=== PATIENT | male | born 1980 | race Caucasian/White ===

== ENCOUNTER 2017-06-14 03:39 | Inpatient (IN) | payer OTHER ==
[~2017-06-14] VITALS: Ht 193 cm; Wt 64.6 kg
[~2017-06-14 03:39] MED LIST: CYCLOBENZAPRINE5 MG PO; HYDROCODON-ACE1 EAC9 BLADIN; LYRICA75 MG PO; PANTOPRAZOLE SO40 MG PO
[2017-06-14] MEDS ORDERED: MORPHINE SULFATE 2 MG/ML SYR IV STA (03:49)
[2017-06-14] MEDS ORDERED: ONDANSETRON HCL INJ 2 MG/ML VIAL IV STA (03:49)
[2017-06-14] MEDS ORDERED: SODIUM CHLORIDE 0.9% 1000ML 1,000 ML IV ONE (04:00)
[2017-06-14] MEDS ORDERED: DIATRIZOATE MEGL/DIATRIZOA SOD 30 ML BTL PO ONE (04:23)
[2017-06-14 04:43] LABS: BILIRUBIN,URINE NEGATIVE (NEGATIVE); COLOR,URINE YELLOW (YELLOW); KETONES,URINE NEGATIVE (NEGATIVE); LEUKOCYTE ESTERASE ,URINE NEGATIVE (NEGATIVE); NITRITE,URINE NEGATIVE (NEGATIVE); PROTEIN,URINE DIPSTICK NEGATIVE (NEGATIVE); URINE UROBILINOGEN 0.2 mg/dL (0.2 - 1)
[2017-06-14] MEDS ORDERED: PROMETHAZINE HCL (IM) 25 MG/ML VIAL IM ONE (04:45)
[2017-06-14 04:46] LABS: CLARITY,URINE SL CLOUDY (CLEAR)
[2017-06-14 04:47] LABS: BASOPHILS % 0.4 % (0.0-1.0); EOSINOPHILS # (AUTO) 0.1 (0.0-0.4); HEMOGLOBIN 15.3 g/dL (14.0-18.0); LYMPHOCYTES # (AUTO) 1.5 (1.0-3.2); LYMPHOCYTES % 15.1 % (18.0-39.1); MEAN CORPUSCULAR HEMOGLOBIN 31.7 pg (28-32); MEAN CORPUSCULAR VOLUME 93.2 fL (81-99); MONOCYTES # (AUTO) 0.5 (0.2-0.8); MONOCYTES % 4.9 % (4.4-11.3); NEUTROPHILS # (AUTO) 7.7 (2.1-6.9); NEUTROPHILS % 78.3 % (38.7-80.0); PLATELET COUNT 259 x10e3/uL (140-360); RED BLOOD COUNT 4.83 x10e6/uL (4.3-5.7); RED CELL DISTRIBUTION WIDTH 13.9 % (11.7-14.4)
[2017-06-14 04:57] LABS: ALANINE AMINOTRANSFERASE 13 IU/L (0-55); ALBUMIN 4.6 g/dL (3.5-5.0); ALBUMIN/GLOBULIN RATIO 1.2 (0.8-2.0); ALKALINE PHOSPHATASE 51 IU/L (40-150); AMYLASE 45 U/L (25-125); ANION GAP 12.6 mmol/L (8-16); BLOOD UREA NITROGEN 7 mg/dL (7-26); BUN/CREATININE RATIO 7 (6-25); CALCIUM 10.2 mg/dL (8.4-10.2); CARBON DIOXIDE 31 mmol/L (22-29); CHLORIDE 100 mmol/L (98-107); CREATININE, SERUM 0.98 mg/dL (0.72-1.25); EST GLOMERULAR FILTRATION RATE > 60 ML/MIN (60-); GLUCOSE 125 mg/dL (74-118); LIPASE 17 U/L (8-78); POTASSIUM 3.6 mmol/L (3.5-5.1); SODIUM 140 mmol/L (136-145)
[2017-06-14 05:01] LABS: BACTERIA,URINE MANY /HPF; EPITHELIAL CELLS,URINE RARE /LPF; RBC,URINE 0-5 /HPF (0-5); WBC,URINE (MAN) 0-5 /HPF (0-5)
[2017-06-14] MEDS ORDERED: SODIUM CHLORIDE 0.9% 50ML 50 ML ONE ×3 (05:46→18:09)
[2017-06-14] MEDS ORDERED: IOPAMIDOL 370 MG/ML 200 ML INFUS..BTL INJ ONE (05:46)
--- NOTE | 2017-06-14 06:30 | Diagnostic Imaging Report ---
EXAM: CT ABDOMEN AND PELVIS with IV CONTRAST DATE: 06/14/2017 3:49 AM Time stamp on Exam: 0552 hours INDICATION: Abdominal pain, vomiting COMPARISON: AP view of the chest April 22, 2017 TECHNIQUE: The abdomen and pelvis were scanned using a multidetector helical scanner. Coronal and sagittal reformations were obtained. Routine protocol performed. IV Contrast: 100 cc Isovue 370 Oral Contrast: Gastrografin CTDIvol has been reviewed. It is below the limits set by the Radiation Protocol Committee (RPC). FINDINGS: LOWER THORAX: No consolidations LIVER: No masses BILIARY: The gallbladder is unremarkable. No ductal dilation. SPLEEN: No masses PANCREAS: No masses ADRENALS: No nodules KIDNEYS: Symmetric perfusion. No enhancing masses. No hydronephrosis. GI TRACT: Severe distention of the stomach and proximal duodenum with the transition point at the level of the superior mesenteric artery. The remainder of the small and large bowel are unremarkable. VESSELS: The aorta mesenteric angle is 11 degrees and aorta mesenteric distance is 6 mm PERITONEUM/RETROPERITONEUM: No free air or fluid LYMPH NODES: No lymphadenopathy REPRODUCTIVE ORGANS: Unremarkable BLADDER: Unremarkable SOFT TISSUES: Unremarkable BONES: No suspicious bone lesions. IMPRESSION: Once again there is severe distention of the stomach with the transition point in the mid third portion of the duodenum. 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 Signed by: Dr. Charlene Mccauley M.D. on 06/14/2017 6:27 AM
[2017-06-14] MEDS ORDERED: BENZOCAINE/TETRACAINE/BUTAMBEN AERO SPRAY 56 GM CAN TOP ONE (06:45)
[2017-06-14] MEDS ORDERED: ONDANSETRON HCL INJ 2 MG/ML VIAL IV PRN (07:00)
[2017-06-14] MEDS: SODIUM CHLORIDE 0.9% 1000ML 1,000 ML IV SCH ×2 (09:00→18:10)
[2017-06-14] MEDS ORDERED: PANTOPRAZOLE 40 MG 10ML VIAL IV SCH (09:00)
--- NOTE | 2017-06-14 10:17 | Consultation ---
DATE OF CONSULTATION: June 14, 2017 REASON FOR CONSULTATION: Duodenal obstruction. The patient is a 37-year-old, pleasant male who is admitted from the emergency room complaining of vomiting for several days. The patient was admitted to the hospital with similar problem in March of last year. The patient states he has lost significant weight during the last several months due to inability to take proper oral intake. The patient is a known case of Sjogren syndrome. Physical examination reveals a 37-year-old male. He has a BMI of 21. He is afebrile with stable vital signs. He has an NG tube draining some nonbloody material. Abdomen is soft and nondistended. Admission CT scan reveals changes consistent with superior mesenteric artery syndrome. Electrolytes reveal mild metabolic alkalosis. ASSESSMENT 1. 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 2. Sjogren syndrome with weight loss. PLAN: The plan is to rehydrate the patient. Keep him on nasogastric tube suction. Will discuss the case and further action of care with the other attendings. IAN WEAVER MD Job#: [id number] ANA MENDOSA
[2017-06-14] MEDS: MORPHINE SULFATE 2 MG/ML SYR IV PRN ×2 (11:14→18:15)
[2017-06-14] MEDS: PROMETHAZINE HCL (IM) 25 MG/ML VIAL IV PRN ×2 (11:14→18:10)
--- NOTE | 2017-06-14 15:54 | Consultation ---
DATE OF CONSULTATION: June 14, 2017 GASTROENTEROLOGY CONSULTATION REFERRING PHYSICIAN: Dr. Nano Lerner. REASON FOR CONSULTATION: Gastric outlet obstruction. HISTORY OF PRESENT ILLNESS: Mr. Singh is a very pleasant 37-year-old man with history of Sjogren's. Due to Sjogren's, he has chronic dysphagia and has basically been on a liquid diet. He has lost weight. He reports bloating and satiety after eating anything. He had similar issues in March of last year where a CAT scan was concerning for some outlet obstruction starting around the second portion of the duodenum. Repeat CAT scan is concerning for superior mesenteric artery syndrome. At the time he had an endoscopy but does not appear to have had a deep enteroscopy. Otherwise he has not had any recent travel or ill contacts. He has had no bleeding. His last bowel movement was yesterday. PAST MEDICAL HISTORY: 1. Sjogren's. 2. Chronic dysphagia. MEDICATIONS/ALLERGIES: REVIEWED. PLEASE SEE MAR MEDICATION RECONCILIATION FORM. SOCIAL HISTORY: No alcohol, tobacco or illicit substances. FAMILY HISTORY: Reviewed, noncontributory. REVIEW OF SYSTEMS: Ten-system review is positive for that mentioned in history of present illness, otherwise unremarkable. PHYSICAL EXAMINATION: GENERAL: He is pleasant, alert, oriented, no acute distress. HEENT: Pupils equal, round, reactive to light. NECK: Supple. LUNGS: Clear. CARDIOVASCULAR: S1/S2. ABDOMEN: Soft. He is mildly tender in the epigastric. No rebound, guarding or mass. EXTREMITIES: No clubbing, cyanosis, edema. PSYCHIATRIC: Calm, cooperative. NEUROLOGIC: Nonfocal. HEME-ONC: No bruising or adenopathy. Electronic health records reviewed for laboratory and radiologic studies as well as history. ASSESSMENT: 1. Possible superior mesenteric artery syndrome. 2. Weight loss. 3. Sjogren's with difficulty tolerating anything but liquids. 4. Malnutrition. PLAN: At the current time, would do a deeper enteroscopy to make sure we have evaluated the entire duodenum and first part of jejunum. Given the workup that was done in March and his CAT scan, if there are not endoscopic findings, may just attribute this to SMA syndrome and work on his nutrition. I will consult nutrition services as we may need to consider outpatient TPN that assists him in gaining weight versus jejunostomy with tube feeds. Appreciate that Dr. Remy has already seen the patient and will follow with him. Thank you very much for asking me to see Mr. Singh. Any questions or concerns, please do not hesitate to contact me. I will follow with you. Job#: [id number] EV
--- NOTE | 2017-06-14 16:43 | History and Physical ---
CHIEF COMPLAINT 1. Abdominal pain. 2. Nausea. 3. Vomiting. HISTORY OF PRESENT ILLNESS: This is a 37-year-old male with a past medical history of chronic low back pain on opiate medicine, Sjogren's syndrome. He was having symptoms of abdominal pain, nausea and vomiting since 2 days. The patient came to the emergency room last night. He had mild hematemesis, no melena, no fever, no cough, no chest pain. He had some low back pain. No leg pain, no leg swelling. PAST MEDICAL HISTORY: 1. Lumbar spondylosis. 2. Chronic low back pain. 3. Sjogren's syndrome with dryness of mouth. PAST SURGICAL HISTORY: None. ALLERGIES: NO KNOWN DRUG ALLERGIES. HOME MEDICATIONS: Parlin, Flexeril and Lyrica. SOCIAL HISTORY: The patient is and lives in [place] with his . HABITS: Denies smoking, denies drinking alcohol, denies substance abuse. FAMILY HISTORY: Mother has lupus. Father is alive and healthy. REVIEW OF SYSTEMS GENERAL: Denies fatigue and weakness. HEENT: No diplopia. No blurring of vision. CARDIOPULMONARY: No chest pain. No shortness of breath or cough. ALIMENTARY SYSTEM: No nausea or vomiting. No abdominal pain. GENITOURINARY: No dysuria. No hematuria. MUSCULOSKELETAL: Low back pain and joint pain. CENTRAL NERVOUS SYSTEM: No focal weakness. PHYSICAL EXAMINATION GENERAL: This is a 37-year-old male who is alert and oriented times 3, in no apparent distress. VITAL SIGNS: Temperature 98.2, pulse, 80, respiratory rate 18, blood pressure 130/84. HEENT: Normocephalic, atraumatic. Pupils bilaterally equal to light. Extraocular movements intact. Nose has NG tube. NECK: Supple. No JVD. No carotid bruits. LUNGS: Clear to auscultation and percussion bilaterally. HEART: S1 and S2. Regular rate and rhythm. No S3, S4 or murmur. ABDOMEN: No guarding, has some tenderness, generalized distention. Bowel sounds hypoactive. No rigidity. EXTREMITIES: No edema. Peripheral pulses are +1 TOBACCO CUTTER: Grossly nonfocal. ASSESSMENT 1. Intestinal obstruction. 2. Sjogren's syndrome. 3. Chronic low back pain. 4. Chronic pain syndrome on opiates. PLAN: 1. N.p.o. 2. IV fluids, normal saline 150 mL per hour. 3. Protonix 40 mg IV daily. 4. Surgical consult with Dr. Remy. 5. Gastrointestinal consult with Dr. Connors. 6. Labs tomorrow morning. 7. Zofran 4 mg IV q.8 h. p.r.n. for nausea and vomiting. Job#: [id number] GH
[2017-06-15] MEDS ORDERED: SODIUM CHLORIDE 0.9% 50ML 50 ML ONE (02:40)
[2017-06-15] MEDS: PROMETHAZINE HCL (IM) 25 MG/ML VIAL IV PRN (02:40)
[2017-06-15] MEDS: SODIUM CHLORIDE 0.9% 1000ML 1,000 ML IV SCH ×2 (02:40→16:36)
[2017-06-15] MEDS: MORPHINE SULFATE 2 MG/ML SYR IV PRN (03:27)
[2017-06-15 05:16] LABS: BASOPHILS % 0.5 % (0.0-1.0); EOSINOPHILS # (AUTO) 0.2 (0.0-0.4); EOSINOPHILS % 1.9 % (0.0-6.0); HEMATOCRIT 36.8 % (38.2-49.6); HEMOGLOBIN 12.2 g/dL (14.0-18.0); LYMPHOCYTES # (AUTO) 1.4 (1.0-3.2); LYMPHOCYTES % 15.7 % (18.0-39.1); MEAN CORPUSCULAR HEMOGLOBIN 31.9 pg (28-32); MEAN CORPUSCULAR HGB CONC 33.2 g/dL (31-35); MEAN CORPUSCULAR VOLUME 96.3 fL (81-99); MONOCYTES # (AUTO) 0.6 (0.2-0.8); MONOCYTES % 6.2 % (4.4-11.3); NEUTROPHILS # (AUTO) 6.7 (2.1-6.9); NEUTROPHILS % 75.4 % (38.7-80.0); PLATELET COUNT 173 x10e3/uL (140-360); RED BLOOD COUNT 3.82 x10e6/uL (4.3-5.7); RED CELL DISTRIBUTION WIDTH 14.3 % (11.7-14.4)
[2017-06-15 05:39] LABS: ALANINE AMINOTRANSFERASE 10 IU/L (0-55); ALBUMIN 3.5 g/dL (3.5-5.0); ALBUMIN/GLOBULIN RATIO 1.3 (0.8-2.0); ALKALINE PHOSPHATASE 42 IU/L (40-150); AMYLASE 37 U/L (25-125); ANION GAP 9.8 mmol/L (8-16); BLOOD UREA NITROGEN 9 mg/dL (7-26); BUN/CREATININE RATIO 12 (6-25); CALCIUM 8.5 mg/dL (8.4-10.2); CARBON DIOXIDE 25 mmol/L (22-29); CHLORIDE 111 mmol/L (98-107); CREATININE, SERUM 0.78 mg/dL (0.72-1.25); EST GLOMERULAR FILTRATION RATE > 60 ML/MIN (60-); GLUCOSE 83 mg/dL (74-118); LIPASE 20 U/L (8-78); POTASSIUM 3.8 mmol/L (3.5-5.1); SODIUM 142 mmol/L (136-145)
[2017-06-15] MEDS ORDERED: ONDANSETRON HCL INJ 2 MG/ML VIAL ONE (12:26)
[2017-06-15] MEDS ORDERED: MORPHINE SULFATE 2 MG/ML SYR ONE (12:27)
[2017-06-15 13:57] VITALS: BP 113/72
[2017-06-15 15:56] VITALS: BP 113/66
[2017-06-15 16:00] VITALS: BP 113/66
[2017-06-15] MEDS ORDERED: PROPOFOL IV EMULSION 10 MG/ML 50 ML VIAL ONE (17:35)
[2017-06-15] MEDS ORDERED: HYDROMORPHONE 1MG/1ML INJ IV PRN (18:30)
[2017-06-15] MEDS: HYDROMORPHONE 2MG/ML INJ IV PRN (19:00)
[2017-06-15] MEDS ORDERED: MIDAZOLAM HCL 2 MG/2 ML VIAL ONE (19:35)
[2017-06-15 20:00] VITALS: BP 116/70
[2017-06-16] VITALS (7 sets, daily range): BP systolic 116–126; BP diastolic 67–81
[2017-06-16] MEDS: SODIUM CHLORIDE 0.9% 1000ML 1,000 ML IV SCH ×4 (03:11→17:51)
[2017-06-16 08:18] LABS: BASOPHILS % 0.5 % (0.0-1.0); EOSINOPHILS # (AUTO) 0.1 (0.0-0.4); EOSINOPHILS % 1.5 % (0.0-6.0); HEMATOCRIT 35.7 % (38.2-49.6); LYMPHOCYTES # (AUTO) 1.3 (1.0-3.2); LYMPHOCYTES % 16.2 % (18.0-39.1); MEAN CORPUSCULAR HEMOGLOBIN 31.8 pg (28-32); MEAN CORPUSCULAR HGB CONC 33.6 g/dL (31-35); MEAN CORPUSCULAR VOLUME 94.7 fL (81-99); MONOCYTES # (AUTO) 0.4 (0.2-0.8); MONOCYTES % 5.6 % (4.4-11.3); NEUTROPHILS % 75.8 % (38.7-80.0); PLATELET COUNT 159 x10e3/uL (140-360); RED BLOOD COUNT 3.77 x10e6/uL (4.3-5.7); RED CELL DISTRIBUTION WIDTH 13.4 % (11.7-14.4)
[2017-06-16 08:35] LABS: ANION GAP 13.8 mmol/L (8-16); BLOOD UREA NITROGEN 11 mg/dL (7-26); BUN/CREATININE RATIO 17 (6-25); CALCIUM 8.2 mg/dL (8.4-10.2); CARBON DIOXIDE 22 mmol/L (22-29); CHLORIDE 109 mmol/L (98-107); CREATININE, SERUM 0.66 mg/dL (0.72-1.25); EST GLOMERULAR FILTRATION RATE > 60 ML/MIN (60-); GLUCOSE 69 mg/dL (74-118); POTASSIUM 3.8 mmol/L (3.5-5.1); SODIUM 141 mmol/L (136-145)
[2017-06-16] MEDS: HYDROMORPHONE 2MG/ML INJ IV PRN ×3 (11:04→22:22)
[2017-06-17] VITALS (9 sets, daily range): BP systolic 112–124; BP diastolic 66–71
[2017-06-17] MEDS: SODIUM CHLORIDE 0.9% 1000ML 1,000 ML IV SCH ×3 (01:55→20:40)
[2017-06-17 07:40] LABS: ALANINE AMINOTRANSFERASE 8 IU/L (0-55); ALBUMIN 3.2 g/dL (3.5-5.0); ALBUMIN/GLOBULIN RATIO 1.1 (0.8-2.0); ALKALINE PHOSPHATASE 40 IU/L (40-150); ANION GAP 11.6 mmol/L (8-16); BLOOD UREA NITROGEN 7 mg/dL (7-26); BUN/CREATININE RATIO 10 (6-25); CALCIUM 8.4 mg/dL (8.4-10.2); CARBON DIOXIDE 24 mmol/L (22-29); CHLORIDE 111 mmol/L (98-107); CREATININE, SERUM 0.67 mg/dL (0.72-1.25); EST GLOMERULAR FILTRATION RATE > 60 ML/MIN (60-); GLUCOSE 82 mg/dL (74-118); POTASSIUM 3.6 mmol/L (3.5-5.1); SODIUM 143 mmol/L (136-145)
[2017-06-17] MEDS: PANTOPRAZOLE 40 MG 10ML VIAL IV SCH (09:00)
[2017-06-17] MEDS: HYDROMORPHONE 2MG/ML INJ IV PRN ×3 (11:58→22:15)
--- NOTE | 2017-06-17 14:20 | Diagnostic Imaging Report ---
PROCEDURE: A single AP view of the chest. COMPARISON: Patients [facility], , CHEST 2 VIEWS, 04/22/2017, 23:49. INDICATIONS: PICC LINE PLACEMENT FINDINGS: Lines/tubes: Left upper extremity PICC has been placed with the distal tip projected over the cavoatrial junction. Lungs: The lungs are well inflated and clear. There is no evidence of pneumonia or pulmonary edema. Pleura: Mild biapical pleural scarring. There is no pleural effusion or pneumothorax. Heart and mediastinum: The heart and the mediastinum are unremarkable. Bones: No acute bony abnormality. IMPRESSION: 1. Left upper extremity PICC has been placed with the distal tip projected over the cavoatrial junction. Matt Tracey M.D. Dictated by: Matt Tracey M.D. on 06/17/2017 at 14:28 Electronically approved by: Matt Tracey M.D. on 06/17/2017 at 14:28
[2017-06-17] MEDS ORDERED: CENTRAL TPN FORMULA 1 BAG IV SCH (20:00)
[2017-06-18] VITALS (7 sets, daily range): BP systolic 106–137; BP diastolic 58–96
[2017-06-18 05:34] LABS: BASOPHILS % 0.5 % (0.0-1.0); EOSINOPHILS # (AUTO) 0.1 (0.0-0.4); EOSINOPHILS % 3.2 % (0.0-6.0); HEMATOCRIT 33.3 % (38.2-49.6); HEMOGLOBIN 11.4 g/dL (14.0-18.0); LYMPHOCYTES # (AUTO) 1.5 (1.0-3.2); LYMPHOCYTES % 34.5 % (18.0-39.1); MEAN CORPUSCULAR HEMOGLOBIN 32.3 pg (28-32); MEAN CORPUSCULAR HGB CONC 34.2 g/dL (31-35); MEAN CORPUSCULAR VOLUME 94.3 fL (81-99); MONOCYTES # (AUTO) 0.4 (0.2-0.8); MONOCYTES % 9.2 % (4.4-11.3); NEUTROPHILS # (AUTO) 2.3 (2.1-6.9); NEUTROPHILS % 52.6 % (38.7-80.0); PLATELET COUNT 148 x10e3/uL (140-360); RED BLOOD COUNT 3.53 x10e6/uL (4.3-5.7); RED CELL DISTRIBUTION WIDTH 13.2 % (11.7-14.4)
[2017-06-18 05:52] LABS: ANION GAP 10.5 mmol/L (8-16); BLOOD UREA NITROGEN 8 mg/dL (7-26); BUN/CREATININE RATIO 12 (6-25); CALCIUM 8.2 mg/dL (8.4-10.2); CARBON DIOXIDE 26 mmol/L (22-29); CHLORIDE 111 mmol/L (98-107); CREATININE, SERUM 0.67 mg/dL (0.72-1.25); EST GLOMERULAR FILTRATION RATE > 60 ML/MIN (60-); GLUCOSE 105 mg/dL (74-118); MAGNESIUM 1.5 MG/DL (1.3-2.1); POTASSIUM 3.5 mmol/L (3.5-5.1); SODIUM 144 mmol/L (136-145)
[2017-06-18] MEDS: SODIUM CHLORIDE 0.9% 1000ML 1,000 ML IV SCH ×2 (08:15→16:15)
[2017-06-18] MEDS: PANTOPRAZOLE 40 MG 10ML VIAL IV SCH (09:00)
[2017-06-18] MEDS: HYDROMORPHONE 2MG/ML INJ IV PRN ×4 (11:00→23:03)
[2017-06-18] MEDS ORDERED: CENTRAL TPN FORMULA 1 BAG IV SCH (20:00)
[2017-06-19] VITALS (7 sets, daily range): BP systolic 105–131; BP diastolic 6–79
[2017-06-19] MEDS: SODIUM CHLORIDE 0.9% 1000ML 1,000 ML IV SCH ×2 (03:16→21:07)
[2017-06-19] MEDS: HYDROMORPHONE 2MG/ML INJ IV PRN ×5 (03:45→23:30)
[2017-06-19 08:18] LABS: ALANINE AMINOTRANSFERASE 8 IU/L (0-55); ALBUMIN 3.5 g/dL (3.5-5.0); ALBUMIN/GLOBULIN RATIO 1.2 (0.8-2.0); ALKALINE PHOSPHATASE 38 IU/L (40-150); ANION GAP 9.5 mmol/L (8-16); BLOOD UREA NITROGEN 5 mg/dL (7-26); BUN/CREATININE RATIO 7 (6-25); CALCIUM 8.6 mg/dL (8.4-10.2); CARBON DIOXIDE 28 mmol/L (22-29); CHLORIDE 109 mmol/L (98-107); CREATININE, SERUM 0.67 mg/dL (0.72-1.25); EST GLOMERULAR FILTRATION RATE > 60 ML/MIN (60-); GLUCOSE 113 mg/dL (74-118); POTASSIUM 3.5 mmol/L (3.5-5.1); SODIUM 143 mmol/L (136-145)
[2017-06-19] MEDS: PANTOPRAZOLE 40 MG 10ML VIAL IV SCH (08:30)
[2017-06-19] MEDS ORDERED: CENTRAL TPN FORMULA 1 BAG IV SCH (20:00)
[2017-06-19] MEDS: DIPHENHYDRAMINE HCL INJ 50 MG/ML VIAL IV PRN (21:08)
[2017-06-20] VITALS (7 sets, daily range): BP systolic 110–139; BP diastolic 60–78
[2017-06-20] MEDS: HYDROMORPHONE 2MG/ML INJ IV PRN ×4 (03:33→22:00)
[2017-06-20 07:37] LABS: ALANINE AMINOTRANSFERASE 7 IU/L (0-55); ALBUMIN 3.3 g/dL (3.5-5.0); ALBUMIN/GLOBULIN RATIO 0.8 (0.8-2.0); ALKALINE PHOSPHATASE 32 IU/L (40-150); ANION GAP 11.3 mmol/L (8-16); BLOOD UREA NITROGEN 5 mg/dL (7-26); BUN/CREATININE RATIO 5 (6-25); CALCIUM 8.8 mg/dL (8.4-10.2); CARBON DIOXIDE 25 mmol/L (22-29); CHLORIDE 109 mmol/L (98-107); CREATININE, SERUM 0.93 mg/dL (0.72-1.25); EST GLOMERULAR FILTRATION RATE > 60 ML/MIN (60-); POTASSIUM 5.3 mmol/L (3.5-5.1); SODIUM 140 mmol/L (136-145)
[2017-06-20 07:39] LABS: GLUCOSE 706 mg/dL (74-118)
[2017-06-20] MEDS: PANTOPRAZOLE 40 MG 10ML VIAL IV SCH (09:11)
[2017-06-20 10:34] LABS: ALANINE AMINOTRANSFERASE 7 IU/L (0-55); ALBUMIN 3.5 g/dL (3.5-5.0); ALBUMIN/GLOBULIN RATIO 1.1 (0.8-2.0); ALKALINE PHOSPHATASE 41 IU/L (40-150); ANION GAP 9.4 mmol/L (8-16); BLOOD UREA NITROGEN 6 mg/dL (7-26); BUN/CREATININE RATIO 8 (6-25); CALCIUM 8.8 mg/dL (8.4-10.2); CARBON DIOXIDE 28 mmol/L (22-29); CHLORIDE 111 mmol/L (98-107); CREATININE, SERUM 0.71 mg/dL (0.72-1.25); EST GLOMERULAR FILTRATION RATE > 60 ML/MIN (60-); GLUCOSE 98 mg/dL (74-118); POTASSIUM 3.4 mmol/L (3.5-5.1); SODIUM 145 mmol/L (136-145)
[2017-06-20] MEDS: SODIUM CHLORIDE 0.9% 1000ML 1,000 ML IV SCH (19:16)
[2017-06-20] MEDS: CENTRAL TPN FORMULA 1 BAG IV SCH (20:10)
[2017-06-20] MEDS: DIPHENHYDRAMINE HCL INJ 50 MG/ML VIAL IV PRN (21:16)
[2017-06-21] VITALS (9 sets, daily range): BP systolic 114–141; BP diastolic 63–86
[2017-06-21] MEDS: HYDROMORPHONE 2MG/ML INJ IV PRN (09:20)
[2017-06-21] MEDS: PANTOPRAZOLE 40 MG 10ML VIAL IV SCH (09:28)
[2017-06-21 11:37] LABS: ANION GAP 11.7 mmol/L (8-16); BLOOD UREA NITROGEN 9 mg/dL (7-26); BUN/CREATININE RATIO 12 (6-25); CALCIUM 9.3 mg/dL (8.4-10.2); CARBON DIOXIDE 25 mmol/L (22-29); CHLORIDE 109 mmol/L (98-107); CREATININE, SERUM 0.74 mg/dL (0.72-1.25); EST GLOMERULAR FILTRATION RATE > 60 ML/MIN (60-); GLUCOSE 114 mg/dL (74-118); POTASSIUM 3.7 mmol/L (3.5-5.1); SODIUM 142 mmol/L (136-145)
[2017-06-21] MEDS: SODIUM CHLORIDE 0.9% 1000ML 1,000 ML IV SCH (15:00)
[2017-06-21] MEDS: CENTRAL TPN FORMULA 1 BAG IV SCH (20:52)
[2017-06-21] MEDS: DIPHENHYDRAMINE HCL INJ 50 MG/ML VIAL IV PRN (21:02)
[2017-06-22] VITALS (7 sets, daily range): BP systolic 113–154; BP diastolic 71–83
[2017-06-22 06:38] LABS: BASOPHILS % 0.6 % (0.0-1.0); EOSINOPHILS # (AUTO) 0.3 (0.0-0.4); HEMATOCRIT 36.9 % (38.2-49.6); HEMOGLOBIN 12.8 g/dL (14.0-18.0); LYMPHOCYTES # (AUTO) 1.2 (1.0-3.2); LYMPHOCYTES % 22.4 % (18.0-39.1); MEAN CORPUSCULAR HGB CONC 34.7 g/dL (31-35); MEAN CORPUSCULAR VOLUME 92.3 fL (81-99); MONOCYTES # (AUTO) 0.3 (0.2-0.8); MONOCYTES % 5.4 % (4.4-11.3); NEUTROPHILS # (AUTO) 3.4 (2.1-6.9); NEUTROPHILS % 66.4 % (38.7-80.0); PLATELET COUNT 187 x10e3/uL (140-360); RED CELL DISTRIBUTION WIDTH 13.2 % (11.7-14.4)
[2017-06-22 07:05] LABS: ALANINE AMINOTRANSFERASE 20 IU/L (0-55); ALBUMIN 3.4 g/dL (3.5-5.0); ALKALINE PHOSPHATASE 39 IU/L (40-150); BLOOD UREA NITROGEN 11 mg/dL (7-26); BUN/CREATININE RATIO 16 (6-25); CARBON DIOXIDE 23 mmol/L (22-29); CHLORIDE 111 mmol/L (98-107); EST GLOMERULAR FILTRATION RATE > 60 ML/MIN (60-); GLUCOSE 223 mg/dL (74-118); MAGNESIUM 2.4 MG/DL (1.3-2.1); SODIUM 142 mmol/L (136-145)
[2017-06-22] MEDS ORDERED: BUPIVACAINE LIPOSOME/PF 266 MG/20 ML IJ ONE (09:52)
[2017-06-22] MEDS ORDERED: BUPIVACAINE 0.25% 30ML SDV INJ ONE (09:52)
[2017-06-22] MEDS ORDERED: HYDROMORPHONE 1MG/1ML INJ IV PRN (10:30)
[2017-06-22] MEDS ORDERED: ACETAMINOPHEN 1000 MG/100 ML IV PRN (10:30)
[2017-06-22] MEDS: HYDROMORPHONE 2MG/ML INJ IV PRN ×2 (10:45→12:00)
[2017-06-22] MEDS: SODIUM CHLORIDE 0.9% 1000ML 1,000 ML IV SCH (11:16)
--- NOTE | 2017-06-22 11:16 | Operative Report ---
DATE OF PROCEDURE: June 22, 2017 PREOPERATIVE DIAGNOSIS: Duodenal obstruction. 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 OPERATION PERFORMED: Exploratory laparotomy, lysis of adhesions with release of duodenal obstruction, and appendectomy. PHARMACEUTICAL DEVELOPMENT TECHNICIAN: Dr. En Remy ANESTHESIA: General. COMPLICATIONS: None. ESTIMATED BLOOD LOSS: Minimal. DESCRIPTION OF PROCEDURE: With the patient lying in bed in the supine position under good general endotracheal anesthesia, the abdomen was prepped with Betadine solution and draped in the usual manner. A right subcostal incision was made. It was carried down through the subcutaneous tissue. Rectus fascia was opened. The rectus muscle was divided with cautery. The posterior rectus sheath was opened, and the abdomen was entered. Upon entering the abdominal cavity, exploration revealed the duodenum to be fairly well decompressed at this time. The colon was packed with hard, rock-like stool. The small bowel was then run from the terminal ileum all the way back to the ligament of Treitz. The small bowel itself appeared to be normal. However, at the level of the ligament of Treitz, there was an obvious kink of the junction of the 4th portion of the duodenum with the beginning of the jejunum. The bowel came out of the retroperitoneum at the 4th portion of the duodenum and went actually upwards underneath the transverse colon and was tightly adherent to the undersurface of the ligament of Treitz creating a kink in the bowel. We decided at this point to go ahead and free up the duodenum to be able to get a good look all the way around. The right colon was then mobilized medially, and a Napoleon maneuver was performed and the duodenum was mobilized medially all the way around, all the way down to the ligament of Treitz. The adhesions from the ligament of Treitz were then slowly and carefully taken down, and the ligament of Treitz was taken down. The duodenum was freed up in its 4th portion and 3rd portion. The proximal small bowel was all freed up. At this point, all the kinking of the bowel was undone. We were able to freely move the duodenum and visualize the entire length of the duodenum. There did not appear to be any other external compression. 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 This had all been freed up. The whole abdomen was then thoroughly irrigated. Perfect hemostasis was ascertained. We decided to go ahead and remove the appendix, which was in a retrocecal position. It had been totally mobilized as part of the dissection for the duodenum. The mesentery of the appendix was divided between 2-0 Vicryl ties. The base of the appendix was ligated with #0 Vicryl tie. The appendix was resected. The mucosa was cauterized, and the stump was inverted with a pursestring suture of 3-0 Vicryl. After this was done, again the bowel was run. There was no other point of obstruction present. The abdomen was then closed in layers. The peritoneum was closed with a running suture of #1 Vicryl. The anterior rectus sheath was closed with a running suture of #1 Vicryl. All layers were infiltrated on the way out with a solution of Exparel and 1/4 percent Marcaine. The skin was closed with clips. A dressing was applied. The sponge, lap and needle count was correct. Patient tolerated the procedure well and returned to the recovery room in stable condition. Job#: [id number]
[2017-06-22] MEDS ORDERED: CEFOXITIN 1GM/ DEXTROSE 50ML 50 ML IV SCH (12:00)
[2017-06-22] MEDS: PANTOPRAZOLE 40 MG 10ML VIAL IV SCH (12:00)
[2017-06-22] MEDS: CEFOXITIN SOD 1 GM VIAL IV SCH ×2 (13:41→20:20)
[2017-06-22] MEDS: SODIUM CHLORIDE 0.9% 250ML IRRIG IR SCH ×3 (13:41→22:42)
[2017-06-22] MEDS: ONDANSETRON HCL INJ 2 MG/ML VIAL IV PRN (13:48)
[2017-06-22] MEDS: DIPHENHYDRAMINE HCL INJ 50 MG/ML VIAL IV PRN (13:49)
[2017-06-22] MEDS: MORPHINE SULFATE 4 MG/ML SYR IV PRN ×3 (14:53→21:24)
[2017-06-22] MEDS ORDERED: MIDAZOLAM HCL 2 MG/2 ML VIAL ONE (18:19)
[2017-06-22] MEDS ORDERED: FENTANYL CITRATE/PF 100MCG/2 ML INJ ONE (18:19)
[2017-06-22] MEDS: PROMETHAZINE 12.5MG/ NACL 0.9% 12.5 MG/50 ML BAG IV PRN ×2 (19:10→22:42)
[2017-06-22] MEDS ORDERED: CEFOXITIN SOD 1 GM VIAL ONE (19:22)
[2017-06-22] MEDS ORDERED: NEOSTIGMINE 5 MG/5ML SYR ONE (19:22)
[2017-06-22] MEDS ORDERED: SEVOFLURANE INHAL SOLN 250 ML PEN BTL ONE (19:22)
[2017-06-22] MEDS ORDERED: PROPOFOL IV EMULSION 10 MG/ML 20 ML VIAL ONE (19:22)
[2017-06-22] MEDS ORDERED: EPHEDRINE SULFATE INJ 50 MG/10 ML SYR ONE (19:22)
[2017-06-22] MEDS ORDERED: ONDANSETRON HCL INJ 2 MG/ML VIAL ONE (19:22)
[2017-06-22] MEDS ORDERED: DEXAMETHASONE SOD PHOS INJ 4 MG/ML VIAL ONE (19:22)
[2017-06-22] MEDS ORDERED: ROCURONIUM BROMIDE 10 MG/ML 5ML VIAL ONE (19:22)
[2017-06-22] MEDS ORDERED: PHENYLEPHRINE HCL 1% 10 MG/ML VIAL ONE (19:22)
[2017-06-22] MEDS ORDERED: GLYCOPYRROLATE INJ 1MG/ 5 ML SYR ONE (19:22)
[2017-06-22] MEDS ORDERED: LIDOCAINE HCL 2% LOCAL INJ 5 ML SDV VIAL INJ ONE (19:22)
[2017-06-22] MEDS: CENTRAL TPN FORMULA 1 BAG IV SCH (20:20)
[2017-06-23] VITALS (7 sets, daily range): BP systolic 119–134; BP diastolic 65–77
[2017-06-23] MEDS: SODIUM CHLORIDE 0.9% 250ML IRRIG IR SCH ×6 (02:32→22:47)
[2017-06-23] MEDS: PROMETHAZINE 12.5MG/ NACL 0.9% 12.5 MG/50 ML BAG IV PRN ×6 (02:32→21:46)
[2017-06-23] MEDS: MORPHINE SULFATE 4 MG/ML SYR IV PRN ×6 (02:33→21:46)
[2017-06-23] MEDS: SODIUM CHLORIDE 0.9% 1000ML 1,000 ML IV SCH (06:13)
[2017-06-23 07:15] LABS: ALANINE AMINOTRANSFERASE 27 IU/L (0-55); ALBUMIN 3.2 g/dL (3.5-5.0); ALBUMIN/GLOBULIN RATIO 0.9 (0.8-2.0); ALKALINE PHOSPHATASE 47 IU/L (40-150); ANION GAP 10.7 mmol/L (8-16); BLOOD UREA NITROGEN 12 mg/dL (7-26); BUN/CREATININE RATIO 16 (6-25); CALCIUM 8.8 mg/dL (8.4-10.2); CARBON DIOXIDE 26 mmol/L (22-29); CHLORIDE 107 mmol/L (98-107); CREATININE, SERUM 0.74 mg/dL (0.72-1.25); EST GLOMERULAR FILTRATION RATE > 60 ML/MIN (60-); GLUCOSE 124 mg/dL (74-118); POTASSIUM 3.7 mmol/L (3.5-5.1); SODIUM 140 mmol/L (136-145)
[2017-06-23] MEDS: PANTOPRAZOLE 40 MG 10ML VIAL IV SCH (07:40)
[2017-06-23] MEDS ORDERED: CENTRAL TPN FORMULA 1 BAG IV SCH (20:00)
[2017-06-23] MEDS: DIPHENHYDRAMINE HCL INJ 50 MG/ML VIAL IV PRN (22:46)
[2017-06-24] VITALS (7 sets, daily range): BP systolic 113–120; BP diastolic 67–77
[2017-06-24] MEDS: MORPHINE SULFATE 4 MG/ML SYR IV PRN ×3 (00:55→08:32)
[2017-06-24] MEDS: PROMETHAZINE 12.5MG/ NACL 0.9% 12.5 MG/50 ML BAG IV PRN ×7 (00:55→21:22)
[2017-06-24] MEDS: SODIUM CHLORIDE 0.9% 250ML IRRIG IR SCH ×5 (01:52→18:22)
[2017-06-24] MEDS: SODIUM CHLORIDE 0.9% 1000ML 1,000 ML IV SCH (04:22)
[2017-06-24 07:03] LABS: BASOPHILS % 0.3 % (0.0-1.0); EOSINOPHILS # (AUTO) 0.3 (0.0-0.4); EOSINOPHILS % 2.3 % (0.0-6.0); HEMATOCRIT 39.1 % (38.2-49.6); HEMOGLOBIN 13.2 g/dL (14.0-18.0); MEAN CORPUSCULAR HEMOGLOBIN 31.7 pg (28-32); MEAN CORPUSCULAR HGB CONC 33.8 g/dL (31-35); MEAN CORPUSCULAR VOLUME 93.8 fL (81-99); MONOCYTES # (AUTO) 0.6 (0.2-0.8); MONOCYTES % 5.5 % (4.4-11.3); NEUTROPHILS # (AUTO) 9.6 (2.1-6.9); NEUTROPHILS % 82.6 % (38.7-80.0); PLATELET COUNT 199 x10e3/uL (140-360); RED BLOOD COUNT 4.17 x10e6/uL (4.3-5.7); RED CELL DISTRIBUTION WIDTH 13.7 % (11.7-14.4)
[2017-06-24 07:30] LABS: ALANINE AMINOTRANSFERASE 21 IU/L (0-55); ALBUMIN 2.9 g/dL (3.5-5.0); ALBUMIN/GLOBULIN RATIO 0.8 (0.8-2.0); ALKALINE PHOSPHATASE 49 IU/L (40-150); ANION GAP 10.7 mmol/L (8-16); BLOOD UREA NITROGEN 11 mg/dL (7-26); BUN/CREATININE RATIO 16 (6-25); CALCIUM 8.9 mg/dL (8.4-10.2); CARBON DIOXIDE 27 mmol/L (22-29); CHLORIDE 107 mmol/L (98-107); CREATININE, SERUM 0.68 mg/dL (0.72-1.25); EST GLOMERULAR FILTRATION RATE > 60 ML/MIN (60-); GLUCOSE 129 mg/dL (74-118); MAGNESIUM 1.9 MG/DL (1.3-2.1); POTASSIUM 3.7 mmol/L (3.5-5.1); SODIUM 141 mmol/L (136-145)
[2017-06-24] MEDS: PANTOPRAZOLE 40 MG 10ML VIAL IV SCH (08:40)
[2017-06-24] MEDS: MORPHINE SULFATE 5 MG/ML VIAL IV PRN ×4 (12:00→21:22)
[2017-06-24] MEDS ORDERED: CENTRAL TPN FORMULA 1 BAG IV SCH (13:23)
[2017-06-24] MEDS: CENTRAL TPN FORMULA 1 BAG IV SCH (20:37)
[2017-06-24] MEDS: DIPHENHYDRAMINE HCL INJ 50 MG/ML VIAL IV PRN (22:42)
[2017-06-25] VITALS: BP 107/65
[2017-06-25] MEDS: SODIUM CHLORIDE 0.9% 1000ML 1,000 ML IV SCH (00:21)
[2017-06-25] MEDS: METOCLOPRAMIDE HCL 10 MG/2ML VIAL IV SCH ×4 (00:21→17:24)
[2017-06-25] MEDS: PROMETHAZINE 12.5MG/ NACL 0.9% 12.5 MG/50 ML BAG IV PRN ×6 (01:05→21:10)
[2017-06-25] MEDS: MORPHINE SULFATE 4 MG/ML SYR IV PRN ×6 (01:05→21:11)
[2017-06-25 04:00] VITALS: BP 111/67
[2017-06-25 07:27] LABS: ALANINE AMINOTRANSFERASE 16 IU/L (0-55); ALBUMIN 2.7 g/dL (3.5-5.0); ALBUMIN/GLOBULIN RATIO 0.8 (0.8-2.0); ALKALINE PHOSPHATASE 48 IU/L (40-150); ANION GAP 11.4 mmol/L (8-16); BLOOD UREA NITROGEN 13 mg/dL (7-26); BUN/CREATININE RATIO 19 (6-25); CALCIUM 8.7 mg/dL (8.4-10.2); CARBON DIOXIDE 28 mmol/L (22-29); CHLORIDE 107 mmol/L (98-107); CREATININE, SERUM 0.69 mg/dL (0.72-1.25); EST GLOMERULAR FILTRATION RATE > 60 ML/MIN (60-); GLUCOSE 112 mg/dL (74-118); POTASSIUM 3.4 mmol/L (3.5-5.1); SODIUM 143 mmol/L (136-145)
[2017-06-25 08:10] VITALS: BP 116/65
[2017-06-25] MEDS: PANTOPRAZOLE 40 MG 10ML VIAL IV SCH (08:55)
[2017-06-25] MEDS: KCL 20MEQ/.9 SOD CHL 1,000 ML IV SCH (08:59)
[2017-06-25 11:34] VITALS: BP 108/65
[2017-06-25 16:38] VITALS: BP 113/65
[2017-06-25 20:00] VITALS: BP 108/64
[2017-06-25] MEDS: CENTRAL TPN FORMULA 1 BAG IV SCH (20:30)
[2017-06-25] MEDS: DIPHENHYDRAMINE HCL INJ 50 MG/ML VIAL IV PRN (21:41)
[2017-06-26] VITALS (9 sets, daily range): BP systolic 108–141; BP diastolic 59–86
[2017-06-26] MEDS: METOCLOPRAMIDE HCL 10 MG/2ML VIAL IV SCH ×4 (00:39→18:00)
[2017-06-26] MEDS: PROMETHAZINE 12.5MG/ NACL 0.9% 12.5 MG/50 ML BAG IV PRN ×4 (01:12→22:10)
[2017-06-26] MEDS: MORPHINE SULFATE 4 MG/ML SYR IV PRN ×2 (01:13→05:22)
[2017-06-26] MEDS: KCL 20MEQ/.9 SOD CHL 1,000 ML IV SCH (05:21)
[2017-06-26 05:47] LABS: BASOPHILS % 0.7 % (0.0-1.0); EOSINOPHILS # (AUTO) 0.6 (0.0-0.4); EOSINOPHILS % 10.4 % (0.0-6.0); HEMATOCRIT 33.3 % (38.2-49.6); HEMOGLOBIN 11.2 g/dL (14.0-18.0); LYMPHOCYTES # (AUTO) 1.1 (1.0-3.2); LYMPHOCYTES % 19.3 % (18.0-39.1); MEAN CORPUSCULAR HEMOGLOBIN 31.5 pg (28-32); MEAN CORPUSCULAR HGB CONC 33.6 g/dL (31-35); MEAN CORPUSCULAR VOLUME 93.5 fL (81-99); MONOCYTES # (AUTO) 0.5 (0.2-0.8); NEUTROPHILS # (AUTO) 3.6 (2.1-6.9); NEUTROPHILS % 61.4 % (38.7-80.0); PLATELET COUNT 199 x10e3/uL (140-360); RED BLOOD COUNT 3.56 x10e6/uL (4.3-5.7); RED CELL DISTRIBUTION WIDTH 13.2 % (11.7-14.4)
[2017-06-26 06:05] LABS: ANION GAP 10.5 mmol/L (8-16); BLOOD UREA NITROGEN 11 mg/dL (7-26); BUN/CREATININE RATIO 18 (6-25); CALCIUM 8.3 mg/dL (8.4-10.2); CARBON DIOXIDE 26 mmol/L (22-29); CHLORIDE 112 mmol/L (98-107); CREATININE, SERUM 0.62 mg/dL (0.72-1.25); EST GLOMERULAR FILTRATION RATE > 60 ML/MIN (60-); GLUCOSE 101 mg/dL (74-118); MAGNESIUM 1.7 MG/DL (1.3-2.1); POTASSIUM 3.5 mmol/L (3.5-5.1); SODIUM 145 mmol/L (136-145)
[2017-06-26] MEDS: PANTOPRAZOLE 40 MG 10ML VIAL IV SCH (08:17)
[2017-06-26] MEDS: MORPHINE SULFATE 5 MG/ML VIAL IV PRN ×4 (10:03→22:11)
[2017-06-26] MEDS ORDERED: CENTRAL TPN FORMULA 1 BAG IV SCH (20:00)
[2017-06-26] MEDS: DIPHENHYDRAMINE HCL INJ 50 MG/ML VIAL IV PRN (21:14)
[2017-06-27 00:09] VITALS: BP 111/61
[2017-06-27] MEDS: METOCLOPRAMIDE HCL 10 MG/2ML VIAL IV SCH ×4 (00:37→18:29)
[2017-06-27] MEDS: KCL 20MEQ/.9 SOD CHL 1,000 ML IV SCH ×2 (03:30→20:00)
[2017-06-27] MEDS: MORPHINE SULFATE 5 MG/ML VIAL IV PRN ×4 (03:34→21:21)
[2017-06-27 06:10] VITALS: BP 102/59
[2017-06-27 07:31] LABS: ALANINE AMINOTRANSFERASE 17 IU/L (0-55); ALBUMIN 2.8 g/dL (3.5-5.0); ALBUMIN/GLOBULIN RATIO 0.8 (0.8-2.0); ALKALINE PHOSPHATASE 58 IU/L (40-150); ANION GAP 8.6 mmol/L (8-16); BLOOD UREA NITROGEN 12 mg/dL (7-26); BUN/CREATININE RATIO 17 (6-25); CALCIUM 8.4 mg/dL (8.4-10.2); CARBON DIOXIDE 26 mmol/L (22-29); CHLORIDE 110 mmol/L (98-107); EST GLOMERULAR FILTRATION RATE > 60 ML/MIN (60-); GLUCOSE 108 mg/dL (74-118); POTASSIUM 3.6 mmol/L (3.5-5.1); SODIUM 141 mmol/L (136-145)
[2017-06-27 08:47] VITALS: BP 114/63
[2017-06-27] MEDS: PANTOPRAZOLE 40 MG 10ML VIAL IV SCH (09:00)
[2017-06-27] MEDS: PROMETHAZINE 12.5MG/ NACL 0.9% 12.5 MG/50 ML BAG IV PRN ×3 (09:35→21:21)
--- NOTE | 2017-06-27 12:14 | Diagnostic Imaging Report ---
Exam:Abdominal radiograph History:Postoperative Comparison: None available Findings:Surgical clips overlying the right upper quadrant. Nonobstructive bowel gas pattern. Lung bases clear. No mass effect. Impression: Nonobstructive bowel gas pattern. Signed by: Dr. Sarbjit Motta M.D. on 06/27/2017 12:11 PM
[2017-06-27 12:22] VITALS: BP 119/83
[2017-06-27] MEDS: MAGNESIUM HYDROXIDE 30 ML UDC PO SCH ×2 (14:31→21:21)
[2017-06-27 16:54] VITALS: BP 119/68
[2017-06-27 20:00] VITALS: BP 128/70
[2017-06-27] MEDS: CENTRAL TPN FORMULA 1 BAG IV SCH (20:12)
[2017-06-28] VITALS (8 sets, daily range): BP systolic 105–128; BP diastolic 53–70
[2017-06-28] MEDS: METOCLOPRAMIDE HCL 10 MG/2ML VIAL IV SCH (00:03)
[2017-06-28] MEDS: KCL 20MEQ/.9 SOD CHL 1,000 ML IV SCH ×2 (00:06→22:14)
[2017-06-28] MEDS: MORPHINE SULFATE 5 MG/ML VIAL IV PRN ×3 (03:36→18:00)
[2017-06-28] MEDS: PROMETHAZINE 12.5MG/ NACL 0.9% 12.5 MG/50 ML BAG IV PRN ×4 (03:36→23:34)
[2017-06-28] MEDS: MAGNESIUM HYDROXIDE 30 ML UDC PO SCH ×2 (05:47→14:14)
[2017-06-28 07:06] LABS: BASOPHILS # (AUTO) 0.1 (0.0-0.1); BASOPHILS % 0.7 % (0.0-1.0); EOSINOPHILS # (AUTO) 0.5 (0.0-0.4); EOSINOPHILS % 7.2 % (0.0-6.0); HEMATOCRIT 31.5 % (38.2-49.6); LYMPHOCYTES # (AUTO) 1.4 (1.0-3.2); LYMPHOCYTES % 19.5 % (18.0-39.1); MEAN CORPUSCULAR HEMOGLOBIN 33.4 pg (28-32); MEAN CORPUSCULAR HGB CONC 34.9 g/dL (31-35); MEAN CORPUSCULAR VOLUME 95.7 fL (81-99); MONOCYTES # (AUTO) 0.5 (0.2-0.8); MONOCYTES % 6.8 % (4.4-11.3); NEUTROPHILS # (AUTO) 4.6 (2.1-6.9); NEUTROPHILS % 65.5 % (38.7-80.0); PLATELET COUNT 228 x10e3/uL (140-360); RED BLOOD COUNT 3.29 x10e6/uL (4.3-5.7); RED CELL DISTRIBUTION WIDTH 13.4 % (11.7-14.4)
[2017-06-28 07:40] LABS: ALANINE AMINOTRANSFERASE 20 IU/L (0-55); ALBUMIN 2.7 g/dL (3.5-5.0); ALBUMIN/GLOBULIN RATIO 0.6 (0.8-2.0); ALKALINE PHOSPHATASE 54 IU/L (40-150); ANION GAP 14.6 mmol/L (8-16); BLOOD UREA NITROGEN 11 mg/dL (7-26); BUN/CREATININE RATIO 12 (6-25); CALCIUM 8.9 mg/dL (8.4-10.2); CARBON DIOXIDE 23 mmol/L (22-29); CHLORIDE 107 mmol/L (98-107); EST GLOMERULAR FILTRATION RATE > 60 ML/MIN (60-); POTASSIUM 5.6 mmol/L (3.5-5.1); SODIUM 139 mmol/L (136-145)
[2017-06-28 07:44] LABS: GLUCOSE 763 mg/dL (74-118)
[2017-06-28 08:47] LABS: ANION GAP 10.5 mmol/L (8-16); BLOOD UREA NITROGEN 11 mg/dL (7-26); BUN/CREATININE RATIO 15 (6-25); CALCIUM 8.9 mg/dL (8.4-10.2); CARBON DIOXIDE 27 mmol/L (22-29); CHLORIDE 107 mmol/L (98-107); CREATININE, SERUM 0.71 mg/dL (0.72-1.25); EST GLOMERULAR FILTRATION RATE > 60 ML/MIN (60-); GLUCOSE 104 mg/dL (74-118); POTASSIUM 3.5 mmol/L (3.5-5.1); SODIUM 141 mmol/L (136-145)
[2017-06-28] MEDS: PANTOPRAZOLE 40 MG 10ML VIAL IV SCH (09:07)
[2017-06-28] MEDS ORDERED: POTASSIUM CHLORIDE 10 MEQ TABCR PO ONE (13:45)
[2017-06-28] MEDS: CENTRAL TPN FORMULA 1 BAG IV SCH (20:00)
[2017-06-28] MEDS: DIPHENHYDRAMINE HCL INJ 50 MG/ML VIAL IV PRN ×2 (22:14→22:19)
[2017-06-29] VITALS (7 sets, daily range): BP systolic 100–133; BP diastolic 56–77
[2017-06-29] MEDS: MORPHINE SULFATE 5 MG/ML VIAL IV PRN ×3 (00:16→12:15)
[2017-06-29] MEDS: PROMETHAZINE 12.5MG/ NACL 0.9% 12.5 MG/50 ML BAG IV PRN ×4 (07:22→20:35)
[2017-06-29 07:26] LABS: ANION GAP 12.8 mmol/L (8-16); BLOOD UREA NITROGEN 8 mg/dL (7-26); BUN/CREATININE RATIO 11 (6-25); CALCIUM 8.8 mg/dL (8.4-10.2); CARBON DIOXIDE 27 mmol/L (22-29); CHLORIDE 107 mmol/L (98-107); CREATININE, SERUM 0.74 mg/dL (0.72-1.25); EST GLOMERULAR FILTRATION RATE > 60 ML/MIN (60-); GLUCOSE 105 mg/dL (74-118); MAGNESIUM 1.9 MG/DL (1.3-2.1); POTASSIUM 3.8 mmol/L (3.5-5.1); SODIUM 143 mmol/L (136-145)
[2017-06-29] MEDS: PANTOPRAZOLE 40 MG 10ML VIAL IV SCH (09:40)
[2017-06-29] MEDS: ONDANSETRON HCL INJ 2 MG/ML VIAL IV PRN (09:45)
[2017-06-29] MEDS: KCL 20MEQ/.9 SOD CHL 1,000 ML IV SCH ×2 (12:00→20:43)
[2017-06-29] MEDS ORDERED: BISACODYL 10 MG SUPP PR ONE (14:00)
--- NOTE | 2017-06-29 15:26 | Diagnostic Imaging Report ---
PROCEDURE:X-RAY ABDOMEN - KUB COMPARISON:None. INDICATIONS:left lower abdominal pain today, surgery 1 week ago FINDINGS: A paucity of small bowel gas, however, no air-filled, dilated loops of bowel are noted. Air is noted in the ascending colon, transverse, colon, and distal sigmoid/rectum. Minimal crescentic lucency below the medial left hemidiaphragm likely represents residual postsurgical pneumoperitoneum. No acute bony abnormalities. Metallic eufemia are noted in the right lower quadrant. CONCLUSION: No air-filled, dilated loops of bowel are noted. Kiet Spangler M.D. Dictated by: Kiet Spangler M.D. on 06/29/2017 at 15:35 Electronically approved by: Kiet Spangler M.D. on 06/29/2017 at 15:35
[2017-06-29] MEDS ORDERED: MORPHINE SULFATE 5 MG/ML VIAL IV PRN (16:00)
[2017-06-29] MEDS: MORPHINE SULFATE 2 MG/ML SYR IV PRN ×2 (16:30→21:05)
[2017-06-30] VITALS (8 sets, daily range): BP systolic 103–150; BP diastolic 58–78
[2017-06-30] MEDS: ONDANSETRON HCL INJ 2 MG/ML VIAL IV PRN ×5 (01:05→21:32)
[2017-06-30] MEDS: MORPHINE SULFATE 2 MG/ML SYR IV PRN ×5 (01:12→21:32)
[2017-06-30] MEDS: DIPHENHYDRAMINE HCL INJ 50 MG/ML VIAL IV PRN ×2 (01:29→22:49)
[2017-06-30] MEDS: PANTOPRAZOLE 40 MG 10ML VIAL IV SCH (08:54)
[2017-06-30 13:58] LABS: ANION GAP 9.6 mmol/L (8-16); BLOOD UREA NITROGEN 11 mg/dL (7-26); BUN/CREATININE RATIO 15 (6-25); CALCIUM 8.3 mg/dL (8.4-10.2); CARBON DIOXIDE 25 mmol/L (22-29); CHLORIDE 109 mmol/L (98-107); CREATININE, SERUM 0.71 mg/dL (0.72-1.25); EST GLOMERULAR FILTRATION RATE > 60 ML/MIN (60-); GLUCOSE 105 mg/dL (74-118); POTASSIUM 3.6 mmol/L (3.5-5.1); SODIUM 140 mmol/L (136-145)
[2017-06-30] MEDS: KCL 20MEQ/.9 SOD CHL 1,000 ML IV SCH (15:51)
[2017-07-01] VITALS (8 sets, daily range): BP systolic 94–108; BP diastolic 52–69
[2017-07-01] MEDS: ONDANSETRON HCL INJ 2 MG/ML VIAL IV PRN ×3 (03:18→16:06)
[2017-07-01] MEDS: MORPHINE SULFATE 2 MG/ML SYR IV PRN ×2 (03:18→09:06)
[2017-07-01] MEDS: PANTOPRAZOLE 40 MG 10ML VIAL IV SCH (08:42)
[2017-07-01 10:01] LABS: ALANINE AMINOTRANSFERASE 20 IU/L (0-55); ALBUMIN 3.1 g/dL (3.5-5.0); ALBUMIN/GLOBULIN RATIO 0.9 (0.8-2.0); ALKALINE PHOSPHATASE 53 IU/L (40-150); ANION GAP 9.6 mmol/L (8-16); BLOOD UREA NITROGEN 8 mg/dL (7-26); BUN/CREATININE RATIO 10 (6-25); CALCIUM 8.4 mg/dL (8.4-10.2); CARBON DIOXIDE 27 mmol/L (22-29); CHLORIDE 111 mmol/L (98-107); CREATININE, SERUM 0.77 mg/dL (0.72-1.25); EST GLOMERULAR FILTRATION RATE > 60 ML/MIN (60-); GLUCOSE 108 mg/dL (74-118); POTASSIUM 3.6 mmol/L (3.5-5.1); SODIUM 144 mmol/L (136-145)
[2017-07-01] MEDS: KCL 20MEQ/.9 SOD CHL 1,000 ML IV SCH (12:07)
[2017-07-01] MEDS: HYDROCODONE/APAP 7.5MG-325MG 1 EA TAB PO PRN ×2 (16:07→23:45)
[2017-07-01] MEDS: DIPHENHYDRAMINE HCL INJ 50 MG/ML VIAL IV PRN (23:45)
[2017-07-02] VITALS: BP 104/55
[2017-07-02] MEDS: KCL 20MEQ/.9 SOD CHL 1,000 ML IV SCH (01:31)
[2017-07-02 04:00] VITALS: BP 101/57
[2017-07-02 06:59] LABS: BASOPHILS # (AUTO) 0.1 (0.0-0.1); BASOPHILS % 0.9 % (0.0-1.0); EOSINOPHILS # (AUTO) 0.5 (0.0-0.4); EOSINOPHILS % 8.6 % (0.0-6.0); HEMOGLOBIN 10.1 g/dL (14.0-18.0); LYMPHOCYTES # (AUTO) 1.9 (1.0-3.2); LYMPHOCYTES % 34.7 % (18.0-39.1); MEAN CORPUSCULAR HEMOGLOBIN 31.4 pg (28-32); MEAN CORPUSCULAR HGB CONC 33.7 g/dL (31-35); MEAN CORPUSCULAR VOLUME 93.2 fL (81-99); MONOCYTES # (AUTO) 0.4 (0.2-0.8); MONOCYTES % 7.2 % (4.4-11.3); NEUTROPHILS # (AUTO) 2.7 (2.1-6.9); NEUTROPHILS % 48.2 % (38.7-80.0); PLATELET COUNT 289 x10e3/uL (140-360); RED BLOOD COUNT 3.22 x10e6/uL (4.3-5.7)
[2017-07-02 08:00] VITALS: BP 99/56
[2017-07-02] MEDS: ONDANSETRON HCL INJ 2 MG/ML VIAL IV PRN (09:12)
[2017-07-02] MEDS: PANTOPRAZOLE 40 MG 10ML VIAL IV SCH (09:12)
[2017-07-02] MEDS ORDERED: ZOFRAN ODT4 MG PO (09:47)
[2017-07-02] MEDS ORDERED: ALINIA500 MG PO (09:48)
[2017-07-02 11:01] VITALS: BP 99/56
== END 2017-07-02 14:15 | disposition home or self-care (01) | DRG 336 ==
LOC: ER 03:39 → ERHOLD 07:00 → UNDOADMIN 07:00 → ERHOLD 15:32 → ENDO 06-15 06:00 → MED/SURG3 06-15 13:20 → MED/SURG 06-22 11:35
PROVIDERS: ADMIT Internal Medicine; ATTEND Internal Medicine
PROC: 0DB98ZZ Excision of Duodenum, Via Natural or Artificial Opening Endoscopic (ICD-10-PCS; 2017-06-15)
PROC: 0DTJ0ZZ Resection of Appendix, Open Approach (ICD-10-PCS; 2017-06-22)
PROC: 0DN90ZZ Release Duodenum, Open Approach (ICD-10-PCS; principal; 2017-06-22 07:30)
DX: K56.50 Intestinal adhesions [bands], unspecified as to partial versus complete obstruction (principal); E44.0 Moderate protein-calorie malnutrition; M35.09 Sjogren syndrome with other organ involvement; R13.10 Dysphagia, unspecified; Z68.1 Body mass index [BMI] 19.9 or less, adult; M47.896 Other spondylosis, lumbar region; G89.4 Chronic pain syndrome; M54.5 Low back pain; K44.9 Diaphragmatic hernia without obstruction or gangrene; K29.80 Duodenitis without bleeding
CPT/HCPCS: 36415; 36569; 43239; 71045; 74018; 74177; 74470; 80048; 80053; 81001; 82150; 82948; 83690; 83735; 85025; 87086; 88304; 88305; 96361; 96365; 96366; 96367; 96375; 96376; 99284; J0694; J1100; J1200; J2001; J2250; J2270; J2370; J2405; J2550; J2765; J7030; Q9967

== ENCOUNTER 2017-07-30 18:24 | Inpatient (IN) | payer OTHER ==
[~2017-07-30] VITALS: Ht 193 cm; Wt 59.9 kg
[~2017-07-30 18:24] MED LIST changes: +ALINIA500 MG PO; +ZOFRAN ODT4 MG PO
--- OUTSIDE RECORDS SUMMARY | 2017-07-30 18:27 | XMS REPORT ---
Author Author [facility] Address Unknown Phone Unavailable Care Team Providers Care Product Safety Lead Name Role Phone ASHLEE ANTONIO Unavailable Unavailable Problems This patient has no known problems. Allergies, Adverse Reactions, Alerts This patient has no known allergies or adverse reactions. Medications This patient has no known medications. Results Test Description Test Time Test Comments Text Results Atomic Results Result Comments ABDOMEN-1VIEW (KUB) [place] [address] Patient Name: KIKE SERNA MR #: [id number] : 1980 Age/Sex: 37/M Req #: [id number] Adm Physician: ASHLEE ANTONIO MD Ordered by : IAN WEAVER MD Report #: [id number] Location: MED/SURG Room/Bed: [facility] Procedure: [id number] DX/ABDOMEN-1VIEW (KUB) Exam Date: 06/29/17 Exam Time: 1450 REPORT STATUS: Signed PROCEDURE: X-RAY ABDOMEN - KUB COMPARISON: None. INDICATIONS: left lower abdominal pain today, surgery 1 week ago FINDINGS: A paucity of small bowel gas, however, no air-filled, dilated loops of bowel are noted. Air is noted in the ascending colon, transverse, colon, and distal sigmoid/rectum. Minimal crescentic lucency below the medial left hemidiaphragm likely represents residual postsurgical pneumoperitoneum. No acute bony abnormalities. Metallic eufemia are noted in the right lower quadrant. CONCLUSION: No air-filled, dilated loops of bowel are noted. Kiet Guidry M.D. Dictated by: Kiet Guidry M.D. on 06/29/2017 at 15:35 Electronically approved by : Kiet Guidry M.D. on 06/29/2017 at 15:35 Dictated By: KIET GUIDRY MD 1535 Transcribed By: JERMAINE on 06/29/17 1535 COPY TO: IAN WEAVER MD ABDOMEN-1VIEW ([facility]) [place] [address] Patient Name: KIKE SERNA MR #: [id number] : 1980 Age/Sex: 37/M Req #: [id number] Adm Physician: ASHLEE ANTONIO MD Ordered by : BENJAMIN CAMARENA MD Report #: [id number] Location: MED/SURG Room/Bed: [facility] Procedure: [id number] DX/ABDOMEN-1VIEW (KU) Exam Date: 06/27/17 Exam Time: 1155 REPORT STATUS: Signed Exam:Abdominal radiograph History:Postoperative Comparison: None available Findings:Surgical clips overlying the right upper quadrant. Nonobstructive bowel gas pattern. Lung bases clear. No mass effect. Impression: Nonobstructive bowel gas pattern. Signed by: Dr. Isha Valdes M.D. on 06/27/2017 12:11 PM Dictated By: ISHA VALDES MD 1211 Transcribed By: JOYCE on 06/27/17 1211 COPY TO: BENJAMIN CAMARENA MD CHEST XRAY LINE PLACEMENT [place] [address] Patient Name: KIKE SERNA MR #: [id number] : 1980 Age/Sex: 37/M Req #: [id number] Adm Physician: ASHLEE ANTONIO MD Ordered by : IAN WEAVER MD Report #: [id number] Location: MED/SURG3 Room/Bed: [facility] Procedure: [id number] DX/CHEST XRAY LINE PLACEMENT Exam Date: 06/17/17 Exam Time: 1350 REPORT STATUS: Signed PROCEDURE: A single AP view of the chest. COMPARISON: [facility], , CHEST 2 VIEWS, 04/22/2017, 23:49. INDICATIONS: PICC LINE PLACEMENT FINDINGS: Lines/tubes: Left upper extremity PICC has been placed with the distal tip projected over the cavoatrial junction. Lungs: The lungs are well inflated and clear. There is no evidence of pneumonia or pulmonary edema. Pleura: Mild biapical pleural scarring. There is no pleural effusion or pneumothorax. Heart and mediastinum: The heart and the mediastinum are unremarkable. Bones: No acute bony abnormality. IMPRESSION: 1. Left upper extremity PICC has been placed with the distal tip projected over the cavoatrial junction. Matt Su M.D. Dictated by: Matt Su M.D. on 06/17/2017 at 14:28 Electronically approved by: Matt Su M.D. on 06/17/2017 at 14:28 Dictated By: NGOZI SU MD, MD 27 COPY TO: IAN WEAVER MD CT ABDOMEN/PELVIS W [place] [address] Patient Name: KIKE SERNA MR #: [id number] : 1980 Age/Sex: 37/M Req #: [id number] Adm Physician: Ordered by: RAYA ANDERSON MD Report #: [id number] Location: ER Room/Bed: ___ Procedure: [id number] CT/CT ABDOMEN/PELVIS W Exam Date: 06/14/17 Exam Time: 0545 REPORT STATUS: Signed EXAM: CT ABDOMEN AND PELVIS with IV CONTRAST DATE: 06/14/2017 3:49 AM Time stamp on Exam: 0552 hours INDICATION: Abdominal pain, vomiting COMPARISON: AP view of the chest April 22, 2017 TECHNIQUE: The abdomen and pelvis were scanned using a multidetector helical scanner. Coronal and sagittal reformations were obtained. Routine protocol performed. IV Contrast: 100 cc Isovue 370 Oral Contrast: Gastrografin CTDIvol has been reviewed. It is below the limits set by the Radiation Protocol Committee (RPC). FINDINGS: LOWER THORAX: No consolidations LIVER: No masses BILIARY: The gallbladder is unremarkable. No ductal dilation. SPLEEN: No masses PANCREAS: No masses ADRENALS: No nodules KIDNEYS: Symmetric perfusion. No enhancing masses. No hydronephrosis. GI TRACT: Severe distention of the stomach and proximal duodenum with the transition point at the level of the superior mesenteric artery. The remainder of the small and large bowel are unremarkable. VESSELS: The aorta mesenteric angle is 11 degrees and aorta mesenteric distance is 6 mm PERITONEUM/RETROPERITONEUM: No free air or fluid LYMPH NODES: No lymphadenopathy REPRODUCTIVE ORGANS: Unremarkable BLADDER: Unremarkable SOFT TISSUES: Unremarkable BONES: No suspicious bone lesions. IMPRESSION: Once again there is severe distention of the stomach with the transition point in the mid third portion of the duodenum. 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 Signed by: Dr. Michael Mccauley M.D. on 06/14/2017 6:27 AM Dictated By: MICHAEL MCCAULEY MD 6 Transcribed By: JOYCE on 06/14/17626 COPY TO: RAYA ANDERSON MD SMALL BOWEL SERIES [place] [address] Patient Name: KIKE SERNA MR #: [id number] : 1980 Age/Sex: 37/M Req #: [id number] Adm Physician: ASHLEE ANTONIO MD Ordered by : COLUMBA REDDY MD Report #: [id number] Location: MED/SURG2 Room/Bed: [facility] Procedure: [id number] DX/SMALL BOWEL SERIES Exam Date: 04/26/17 Exam Time: 1100 REPORT STATUS: Signed PROCEDURE: SMALL BOWEL SERIES Comparison: CT abdomen and pelvis 04/23/2017. Indications: DUODENAL STRICTURE Technique: Small bowel follow through exam was performed using oral barium. Preliminary image was obtained before administration of contrast and serial overhead images were obtained after administration of oral barium. Fluoroscopy was performed and spot images were obtained. Findings: SMALL BOWEL FOLLOW THROUGH: Small bowel loops are normal in caliber and distribution. Spot compression views of the terminal ileum are normal. The transit time was normal. No appendix was visualized. IMPRESSION: No acute radiographic abnormality. Dictated by: Jl Leonard M.D. on 04/26/2017 at 11:44 Electronically approved by: Jl Leonard M.D. on 04/26/2017 at 11:44 Dictated By: JL LEONARD MD 43 Transcribed By: JERMAINE on 04/26/174 COPY TO: COLUMBA REDDY MD ABDOMEN ACUTE SERIES W/PA CXR [place] [address] Patient Name: KIKE SERNA MR #: [id number] : 1980 Age/Sex: 37/M Req #: [id number] Adm Physician: ASHLEE ANTONIO MD Ordered by : LORAINE WEAVER MD Report #: [id number] Location: [facility]/SURG Room/Bed: [facility] Procedure: [id number] DX/ABDOMEN ACUTE SERIES W/ PA CXR Exam Date: 04/25/17 Exam Time: 0617 REPORT STATUS: Signed Exam: Abdominal film upright and supine Clinical History: Abdominal pain Comparison: 04/24/2017 DISCUSSION: Enteric tube removed. No gaseous distention of the stomach. Colonic constipation. No free air. Lungs clear. IMPRESSION: Nonobstructive bowel gas pattern. Signed by: Dr. Isha Valdes M.D. on 04/25/2017 7: 21 AM Dictated By: ISHA VALDES MD 0 Transcribed By: JOYCE on 04/25/17720 COPY TO: LORAINE WEAVER MD ABDOMEN COMP INCL UPR or DECUB [place] [address] Patient Name: KIKE SERNA MR #: [id number] : 1980 Age/Sex: 37/M Req #: [id number] Adm Physician: ASHLEE ANTONIO MD Ordered by : COLUMBA REDDY MD Report #: [id number] Location: MED/SURG2 Room/Bed: [facility] Procedure: [id number] DX/ABDOMEN COMP INCL UPR or DECUB Exam Date: 04/24/17 Exam Time: 911 REPORT STATUS: Signed Exam: Abdominal film upright and supine Clinical History: Abdominal pain Comparison: None. DISCUSSION: Enteric tube with distal tip in the region of the duodenum. No gaseous distention of the stomach. Colonic constipation. No free air. IMPRESSION: Nonobstructive bowel gas pattern. Enteric tube with tip overlying the region of the duodenum. Signed by: Dr. Isha Valdes M.D. on 04/24/2017 9:43 AM Dictated By: ISHA VALDES MD 2 Transcribed By: JOYCE on 04/24/17942 COPY TO: COLUMBA REDDY MD ABDOMEN COMP INCL UPR or DECUB [place] [address] Patient Name: KIKE SERNA MR #: [id number] : 1980 Age/Sex: 37/M Req #: [id number] Adm Physician: ASHLEE ANTONIO MD Ordered by : JOHN HAN MD Report #: [id number] Location: MED/SURG2 Room/Bed: [facility] Procedure: [id number] DX/ABDOMEN COMP INCL UPR or DECUB Exam Date: Exam Time: REPORT STATUS: Signed PROCEDURE: ABDOMEN COMP INCL UPR OR DECUB INDICATION: Small bowel obstruction COMPARISON: CT abdomen and pelvis earlier 04/23/2017. FINDINGS: Interval placement of an enteric tube. The tip projects over the expected region of the gastric pylorus. No dilated, air-filled loops of small bowel. Gas and fecal material are noted throughout the large bowel and rectum. No pneumoperitoneum. Intravenous contrast material from prior CT opacifies the urinary bladder. Regional skeletal structures are intact. CONCLUSION: Enteric tube tip projects over the expected region of the gastric pylorus. For further findings regarding suspected obstruction at the level of the third portion of the duodenum please refer to CT abdomen and pelvis earlier 05/23/2017 Nonobstructive bowel gas pattern. Dictated by: Loraine Portillo M.D. on 04/23/2017 at 10:06 Electronically approved by: Loraine Portillo M.D. on 04/23/2017 at 10:06 Dictated By: LORAINE PORTILLO MD 1006 Transcribed By: JERMAINE on 04/23/17 1006 COPY TO: JOHN HAN MD CT ABDOMEN/PELVIS [place] [address] Patient Name: KIKE SERNA MR #: [id number] : 1980 Age/Sex: 37/M Req #: [id number] Adm Physician: Ordered by: JOHN HAN MD Report #: [id number] Location: ER Room/Bed: Procedure: [id number] CT/CT ABDOMEN/PELVIS W Exam Date: 04/23/17 Exam Time: 0130 REPORT STATUS: Signed EXAM: CT ABDOMEN AND PELVIS with IV CONTRAST DATE: 04/22/2017 11:54 PM Time stamp on Exam: 0131 hours INDICATION: Upper abdominal pain, vomiting COMPARISON: None TECHNIQUE: The abdomen and pelvis were scanned using a multidetector helical scanner. Coronal and sagittal reformations were obtained. Routine protocol performed. IV Contrast: 100 cc Isovue-370 Oral Contrast: Gastrografin CTDIvol has been reviewed. It is below the limits set by the Radiation Protocol Committee (RPC). FINDINGS: LOWER THORAX: No consolidations LIVER : No masses BILIARY: The gallbladder is unremarkable. No ductal dilation. SPLEEN: No masses PANCREAS: No masses ADRENALS: No nodules KIDNEYS: Symmetric perfusion. No enhancing masses. No hydronephrosis. GI TRACT: Severe gastric distention. Obstruction is at the level of the third portion of the duodenum. VESSELS: Unremarkable PERITONEUM/RETROPERITONEUM: No free air or fluid LYMPH NODES: No lymphadenopathy REPRODUCTIVE ORGANS : Unremarkable BLADDER: Marked distention. SOFT TISSUES: Unremarkable BONES: No suspicious bone lesions. IMPRESSION: Severe distention of the stomach with the obstruction at the level of the third portion of the duodenum. With provided history of the patient vomiting some blood, this is concerning for ischemia, even though findings are not visualized by CT. Marked distention of the bladder. Signed by: Dr. Michael Mccauley M.D. on 04/23/2017 2:01 AM Dictated By: MICHAEL MCCAULEY MD 0 Transcribed By: JOYCE on 200 COPY TO: JOHN HAN MD CHEST 2 VIEWS [place] [address] Patient Name: KIKE SERNA MR #: [id number] : 1980 Age/Sex: 37/M Req #: [id number] Adm Physician: Ordered by: JOHN HNA MD Report #: [id number] Location: Room/Bed: Procedure: [id number] DX/CHEST 2 VIEWS Exam Date: 04/23/17 Exam Time: 0120 REPORT STATUS: Signed EXAM: CHEST 2 VIEWS, PA and lateral DATE: 04/22/2017 11:00 PM Time stamp on exam: 2349 hours INDICATION: Abdominal pain COMPARISON: None FINDINGS: LINES/TUBES: None LUNGS: No consolidations or edema. PLEURA: No effusions or pneumothorax. HEART AND MEDIASTINUM: Normal size and contour. BONES AND SOFT TISSUES: No acute findings. IMPRESSION: No acute thoracic abnormality. Signed by: Dr. Michael Mccauley M.D. on 04/23/2017 2:02 AM Dictated By: MICHAEL MCCAULEY MD 1 Transcribed By: JOYCE on 04/23/17201 COPY TO: JOHN HAN MD
--- OUTSIDE RECORDS SUMMARY | 2017-07-30 18:27 | XMS REPORT | Continuity of Care Document ---
Author Author [facility] Organization [facility] Address [address] [place] [address] Phone Unavailable Care Team Providers Care Production Technician Name Role Phone ASHLEE ANTONIO MD PCP Insurance Providers Guarantor Ryland Serna Address [address] [place] [address] Email [email or web address] Payer [employer] Pos Policy Number [id number] Subscriber's Name Gauri Serna Teressa Relationship 01 Group Number [id number] Group Name [id number] Effective Date 14 Advance Directives Directive Response Recorded Date/Time Does the patient have an advance directive? No 06/15/17 3:15pm If yes, is advance directive on file with [facility]? No 06/15/17 3:15pm If not on file with [facility] will patient provide a copy? No 06/15/17 3:15pm Do you have a Directive to Physician? No 06/14/17 3:50am Do you have a Medical Power of [employer]? No 06/14/17 3:50am Do you have an out of hospital Do Not Resuscitate Order? No 06/14/17 3:50am Do you have any special needs we should be aware of? No 06/14/17 3:50am Do you have a support person here with you today? Yes 06/14/17 3:50am Did patient receive Notice of Privacy Practices? Yes 06/14/17 3:50am Did patient receive patient rights and responsibilities? Yes 06/14/17 3:50am Problems Medical Problem Onset Date Status Gastric outlet obstruction Unknown SBO (small bowel obstruction) Unknown Sjogren's syndrome Unknown Medications Current Home Medications Medication Dose Units Route Directions Days Qty Instructions Start Date Cyclobenzaprine Hcl (Flexeril) 5 Mg Tablet 5 Mg Oral Three Times A Day Hydrocodone Bit/Acetaminophen (Hydrocodon-Acetaminophn 10-325) 1 Each Tablet Bladder Instillation Bedtime as needed for Pain Nitazoxanide (Alinia) 500 Mg Tablet 500 Mg Oral Every 12 Hours 7 Days Ondansetron (Zofran Odt) 4 Mg Tab.rapdis 4 Mg Oral Every 6 Hours as needed for Nausea And Vomiting Pantoprazole Sodium (Protonix) 40 Mg Tablet.dr 40 Mg Oral Daily Pregabalin (Lyrica) 75 Mg Cap 75 Mg Oral Three Times A Day Social History Social History Problem Response Recorded Date/Time Onset Date Status Hx Psychiatric Problems No 06/15/2017 3:15pm Not Applicable Not Applicable Hx Eating Disorder No 06/15/2017 3:15pm Not Applicable Not Applicable Hx Substance Use Disorder No 06/15/2017 3:15pm Not Applicable Not Applicable Hx Depression No 06/15/2017 3:15pm Not Applicable Not Applicable Hx Alcohol Use No 06/15/2017 3:15pm Not Applicable Not Applicable Hx Substance Use Treatment No 06/15/2017 3:15pm Not Applicable Not Applicable Hx Physical Abuse No 06/15/2017 3:15pm Not Applicable Not Applicable Smoking Status Start Date Stop Date Current every day smoker Hospital Discharge Instructions No hospital discharge instruction information available. Plan of Care Discharge Date 07/02/17 2:15pm Disposition HOME, SELF-CARE Instructions/Education Provided Infection Control Nausea and Vomiting - Oncology Prescriptions See Medication Section Additional Instructions/Education GI SOFT DIET SCHEDULE FOLLOW UP APPOINTMENT WITH ALEM EARLY IN 1-2 WEEKS. TEL: [phone] SCHEDULE FOLLOW UP APPOINTMENT WITH DR. LORAINE WEAVER IN 1-2 WEEKS FOR REMOVAL OF NUBIA. TEL: [phone] Functional Status Query Response Date Recorded Assistive Devices None June 15, 2017 3:56pm Ambulation Ability Independent June 15, 2017 3:56pm Toileting Ability Independent July 02, 2017 8:00am Allergies, Adverse Reactions, Alerts Allergen Type Severity Reaction Status Last Updated Hydromorphone Allergy Mild ITCHING/REDNESS Active 06/22/17 Immunizations No immunization information available. Vital Signs Acute Vital Signs Vital Response Date/Time Temperature (Fahrenheit) 96.4 degrees F (97.6 - 99.5) 07/02/2017 11:01am Pulse Pulse Rate (adult) 68 bpm (60 - 90) 07/02/2017 11:01am Respiratory Rate 19 bpm (12 - 24) 07/02/2017 11:01am Blood Pressure 99/56 mm Hg 07/02/2017 11:01am Height 6 ft 4 in 06/14/2017 3:48am Weight 142.44 lb 06/30/2017 8:11am Body Mass Index 17.3 kg/m^2 07/02/2017 10:41am Results Laboratory Results Test Name Result Units Flags Reference Collection Date/Time Result Date/ Time Comments Prothrombin Time 12.6 seconds 11.9-14.5 04/22/2017 11:01pm 04/22/2017 11:25pm Prothromb Time International Ratio 0.90 04/22/2017 11:01pm 2016 11:25pm Oral Anticoagulant Therapy INR Values: 1. Low Intensity Therapy 1.5 - 2.0 2. Moderate Intensity Therapy 2.0 - 3.0 3. High Intensity Therapy(1) 2.5 - 3.5 4. High Intensity Therapy(2) 3.0 - 4.0 5. Panic Value INR > 5.0 Activated Partial Thromboplast Time 30.1 seconds 23.8-35.5 04/22/2017 11 :01pm 04/22/2017 11:25pm Triglycerides Level 56 MG/DL 0-149 04/24/2017 6:00am 04/24/2017 6:54am Cholesterol Level 159 MD/DL 0-199 04/24/2017 6:00am 04/24/2017 6:54am Less than 200 mg/dL Low Risk 201 - 239 mg/dL Borderline Risk 240 mg/dl and greater High Risk LDL Cholesterol 111 MG/DL 60-130 04/24/2017 6:00am 04/24/2017 6:54am HDL Cholesterol 37 MG/DL L 40-60 04/24/2017 6:00am 04/24/2017 6:54am Cholesterol/HDL Ratio 4.3 3.9-4.7 04/24/2017 6:00am 04/24/2017 6: 54am Creatine Kinase 58 IU/L 30-200 04/22/2017 11:01pm 04/22/2017 11:35pm Creatine Kinase MB 0.60 ng/mL 0.00-5.00 04/22/2017 11:01pm 04/22/2017 11:43pm Troponin I 0.003 ng/mL 0-0.300 04/22/2017 11:01pm 04/22/2017 11:43pm Thyroid Stimulating Hormone (TSH) 2.309 uIU/mL 0.350-4.940 04/24/2017 6: 00am 04/24/2017 7:06am White Blood Count 5.59 x10e3/uL 4.8-10.8 07/02/2017 6:43am 07/02/2017 7 :06am Red Blood Count 3.22 x10e6/uL L 4.3-5.7 07/02/2017 6:43am 07/02/2017 7: 06am Hemoglobin 10.1 g/dL L 14.0-18.0 07/02/2017 6:43am 07/02/2017 7:06am Hematocrit 30.0 % L 38.2-49.6 07/02/2017 6:43am 07/02/2017 7:06am Mean Corpuscular Volume 93.2 fL 81-99 07/02/2017 6:43am 07/02/2017 7: 06am Mean Corpuscular Hemoglobin 31.4 pg 28-32 07/02/2017 6:43am 07/02/2017 7:06am Mean Corpuscular Hemoglobin Concent 33.7 g/dL 31-35 07/02/2017 6:43am 07/02/2017 7:06am Red Cell Distribution Width 13.0 % 11.7-14.4 07/02/2017 6:43am 2017 7:06am Platelet Count 289 x10e3/uL 140-360 07/02/2017 6:43am 07/02/2017 7: 06am Neutrophils (%) (Auto) 48.2 % 38.7-80.0 07/02/2017 6:43am 07/02/2017 7: 06am Lymphocytes (%) (Auto) 34.7 % 18.0-39.1 07/02/2017 6:43am 07/02/2017 7: 06am Monocytes (%) (Auto) 7.2 % 4.4-11.3 07/02/2017 6:43am 07/02/2017 7: 06am Eosinophils (%) (Auto) 8.6 % H 0.0-6.0 07/02/2017 6:43am 07/02/2017 7: 06am Basophils (%) (Auto) 0.9 % 0.0-1.0 07/02/2017 6:43am 07/02/2017 7:06am IM GRANULOCYTES % 0.4 % 0.0-1.0 07/02/2017 6:43am 07/02/2017 7:06am Neutrophils # (Auto) 2.7 2.1-6.9 07/02/2017 6:43am 07/02/2017 7:06am Lymphocytes # (Auto) 1.9 1.0-3.2 07/02/2017 6:43am 07/02/2017 7:06am Monocytes # (Auto) 0.4 0.2-0.8 07/02/2017 6:43am 07/02/2017 7:06am Eosinophils # (Auto) 0.5 H 0.0-0.4 07/02/2017 6:43am 07/02/2017 7: 06am Basophils # (Auto) 0.1 0.0-0.1 07/02/2017 6:43am 07/02/2017 7:06am Absolute Immature Granulocyte (auto 0.02 x10e3/uL 0-0.1 07/02/2017 6: 43am 07/02/2017 7:06am Urine Color YELLOW YELLOW 06/14/2017 4:00am 06/14/2017 4:46am Urine Clarity SL CLOUDY H CLEAR 06/14/2017 4:00am 06/14/2017 4:46am Urine Specific [place] 1.020 1.010-1.025 06/14/2017 4:00am 2017 4:46am Urine pH 8 H 5 - 7 06/14/2017 4:00am 06/14/2017 4:46am Urine Leukocyte Esterase NEGATIVE NEGATIVE 06/14/2017 4:00am 2017 4:46am Urine Nitrite NEGATIVE NEGATIVE 06/14/2017 4:00am 06/14/2017 4:46am Urine Protein NEGATIVE NEGATIVE 06/14/2017 4:00am 06/14/2017 4:46am Urine Glucose (UA) NEGATIVE NEGATIVE 06/14/2017 4:00am 06/14/2017 4: 46am Urine Ketones NEGATIVE NEGATIVE 06/14/2017 4:00am 06/14/2017 4:46am Urine Urobilinogen 0.2 mg/dL 0.2 - 1 06/14/2017 4:00am 06/14/2017 4: 46am Urine Bilirubin NEGATIVE NEGATIVE 06/14/2017 4:00am 06/14/2017 4: 46am Urine Blood NEGATIVE NEGATIVE 06/14/2017 4:00am 06/14/2017 4:46am Urine WBC 0-5 /HPF 0-5 06/14/2017 4:00am 06/14/2017 5:01am Urine RBC 0-5 /HPF 0-5 06/14/2017 4:00am 06/14/2017 5:01am Urine Bacteria MANY /HPF H NONE 06/14/2017 4:00am 06/14/2017 5:01am Urine Epithelial Cells RARE /LPF NONE 06/14/2017 4:00am 06/14/2017 5: 01am Sodium Level 144 mmol/L 136-145 07/01/2017 9:19am 07/01/2017 10:04am Potassium Level 3.6 mmol/L 3.5-5.1 07/01/2017 9:1907/01/2017 10: 04am Chloride Level 111 mmol/L H 98-107 07/01/2017 9:19am 07/01/2017 10:04am Carbon Dioxide Level 27 mmol/L 22-07/01/2017 9:19am 07/01/2017 10: 04am Anion Gap 9.6 mmol/L 8-16 07/01/2017 9:07/01/2017 10:04am Blood Urea Nitrogen 8 mg/dL 7-26 07/01/2017 9:07/01/2017 10:04am Creatinine 0.77 mg/dL 0.72-1.25 07/01/2017 9:07/01/2017 10:04am BUN/Creatinine Ratio 10 6-25 07/01/2017 9:07/01/2017 10:04am Estimat Glomerular Filtration Rate > 60 ML/MIN 60- 07/01/2017 9: 10:04am Ranges were taken from the National Kidney Disease Education Program and the National Kid[employer] Foundation literature. Reference ranges: 60 or greater: Normal 16-59 (for 3 consecutive months): Chronic kidney disease 15 or less: Kidney failure Glucose Level 108 mg/dL 74-118 07/01/2017 9:07/01/2017 10:04am Calcium Level 8.4 mg/dL 8.4-10.2 07/01/2017 9:07/01/2017 10:04am Bedside Glucose 116 mg/dL 70-120 06/30/2017 5:39am 06/30/2017 5:46am Meter ID: [id number] Magnesium Level 1.9 MG/DL 1.3-2.1 06/29/2017 7:10am 06/29/2017 7:26am Total Bilirubin 0.6 mg/dL 0.2-1.2 07/01/2017 9:07/01/2017 10:04am Aspartate Amino Transf (AST/SGOT) 18 IU/L 5-34 07/01/2017 9:2017 10:04am Alanine Aminotransferase (ALT/SGPT) 20 IU/L 0-55 07/01/2017 9:05/2017 10:04am Total Protein 6.5 g/dL 6.5-8.1 07/01/2017 9:07/01/2017 10:04am Albumin 3.1 g/dL L 3.5-5.0 07/01/2017 9:07/01/2017 10:04am Globulin 3.4 g/dL 2.3-3.5 07/01/2017 9:07/01/2017 10:04am Albumin/Globulin Ratio 0.9 0.8-2.0 07/01/2017 9:19am 07/01/2017 10: 04am Alkaline Phosphatase 53 IU/L 40-150 07/01/2017 9:19am 07/01/2017 10: 04am Amylase Level 37 U/L 25-125 06/15/2017 4:57am 06/15/2017 5:41am Lipase 20 U/L 8-78 06/15/2017 4:57am 06/15/2017 5:41am Microbiology Results Procedure Source Organism/Result Collection Date/Time Result Date/Time Result Status Blood Culture Blood NO GROWTH AFTER 5 DAYS, FINAL REPORT 04/24/2017 2:55pm 04/29/2017 3:04pm Final Procedures Procedure Status Date Provider(s) EXCISION OF STOMACH, PYLORUS, ENDO, DIAGN Completed 04/26/17 COLUMBA REDDY MD EXCISION OF LOWER ESOPHAGUS, ENDO, DIAGN Completed 04/26/17 COLUMBA REDDY MD EGD with biopsy Completed 06/15/17 MARION HICKS MD Exploratory laparotomy Completed 06/22/17 LORAINE WEAVER MD X-ray of chest, two views Active 04/22/17 JOHN HAN MD Computed tomography of abdomen and pelvis with contrast Active 04/22/17 JOHN HAN MD Computed tomography of abdomen and pelvis with contrast Active 06/14/17 RAYA ANDERSON MD Encounters Encounter Location Arrival/Admit Date Discharge/Depart Date Attending Provider Discharged Inpatient [facility] 06/15/17 1:20pm 07/02/17 2:15pm ASHLEE ANTONIO MD Discharged Inpatient [facility] 04/23/17 2:51am 04/27/17 10:20am ASHLEE ANTONIO MD Registered Clinic [facility] 10/02/16 9:37am NIKITA MAX MD
[2017-07-30] MEDS ORDERED: SODIUM CHLORIDE 0.9% 1000ML 1,000 ML IV STA (19:31)
[2017-07-30 19:39] LABS: BASOPHILS % 0.4 % (0.0-1.0); EOSINOPHILS # (AUTO) 0.2 (0.0-0.4); EOSINOPHILS % 2.1 % (0.0-6.0); HEMATOCRIT 37.6 % (38.2-49.6); HEMOGLOBIN 12.9 g/dL (14.0-18.0); LYMPHOCYTES # (AUTO) 2.4 (1.0-3.2); LYMPHOCYTES % 30.8 % (18.0-39.1); MEAN CORPUSCULAR HEMOGLOBIN 31.1 pg (28-32); MEAN CORPUSCULAR HGB CONC 34.3 g/dL (31-35); MEAN CORPUSCULAR VOLUME 90.6 fL (81-99); MONOCYTES # (AUTO) 0.4 (0.2-0.8); NEUTROPHILS # (AUTO) 4.8 (2.1-6.9); NEUTROPHILS % 61.6 % (38.7-80.0); PLATELET COUNT 299 x10e3/uL (140-360); RED BLOOD COUNT 4.15 x10e6/uL (4.3-5.7); RED CELL DISTRIBUTION WIDTH 13.9 % (11.7-14.4)
[2017-07-30 19:42] LABS: BILIRUBIN,URINE NEGATIVE (NEGATIVE); CLARITY,URINE CLEAR (CLEAR); COLOR,URINE YELLOW (YELLOW); KETONES,URINE NEGATIVE (NEGATIVE); LEUKOCYTE ESTERASE ,URINE 2+ (NEGATIVE); NITRITE,URINE NEGATIVE (NEGATIVE); PROTEIN,URINE DIPSTICK NEGATIVE (NEGATIVE); URINE UROBILINOGEN 0.2 mg/dL (0.2 - 1)
[2017-07-30 19:43] LABS: INR 1.02; PROTHROMBIN TIME 12.6 seconds (11.9-14.5)
[2017-07-30 19:44] LABS: PARTIAL THROMBOPLASTIN TIME 32.4 seconds (23.8-35.5)
[2017-07-30 19:49] LABS: CREATINE KINASE 35 IU/L (30-200)
[2017-07-30] MEDS ORDERED: DIATRIZOATE MEGL/DIATRIZOA SOD 30 ML BTL PO ONE (19:50)
[2017-07-30] MEDS ORDERED: ONDANSETRON HCL INJ 2 MG/ML VIAL IV STA (19:53)
[2017-07-30 19:54] LABS: RBC,URINE 0-5 /HPF (0-5)
[2017-07-30 20:10] LABS: AMYLASE 67 U/L (25-125); LIPASE 44 U/L (8-78)
[2017-07-30 20:13] LABS: ALANINE AMINOTRANSFERASE 13 IU/L (0-55); ALBUMIN 4.4 g/dL (3.5-5.0); ALBUMIN/GLOBULIN RATIO 1.3 (0.8-2.0); ALKALINE PHOSPHATASE 49 IU/L (40-150); ANION GAP 14.8 mmol/L (8-16); BLOOD UREA NITROGEN 8 mg/dL (7-26); BUN/CREATININE RATIO 10 (6-25); CALCIUM 9.4 mg/dL (8.4-10.2); CARBON DIOXIDE 26 mmol/L (22-29); CHLORIDE 99 mmol/L (98-107); CREATININE, SERUM 0.82 mg/dL (0.72-1.25); EST GLOMERULAR FILTRATION RATE > 60 ML/MIN (60-); GLUCOSE 95 mg/dL (74-118); POTASSIUM 3.8 mmol/L (3.5-5.1); SODIUM 136 mmol/L (136-145)
[2017-07-30] MEDS ORDERED: MORPHINE SULFATE 2 MG/ML SYR IV STA (20:52)
[2017-07-30] MEDS ORDERED: PANTOPRAZOLE 40 MG 10ML VIAL IV STA (20:54)
[2017-07-30] MEDS ORDERED: CEFTRIAXONE SOD 1 GM VIAL IV STA (20:59)
[2017-07-30] MEDS ORDERED: BENZOCAINE/TETRACAINE/BUTAMBEN AERO SPRAY 56 GM CAN TOP ONE (22:00)
[2017-07-30] MEDS ORDERED: SODIUM CHLORIDE 0.9% 50ML 50 ML ONE (22:06)
[2017-07-30] MEDS ORDERED: IOPAMIDOL 370 MG/ML 200 ML INFUS..BTL INJ ONE (22:06)
[2017-07-30] MEDS ORDERED: PROMETHAZINE 12.5MG/ NACL 0.9% 12.5 MG/50 ML BAG IV ONE (22:15)
--- NOTE | 2017-07-30 22:30 | Diagnostic Imaging Report ---
EXAM: CT ABDOMEN AND PELVIS with IV CONTRAST DATE: 07/30/2017 7:31 PM Time stamp on Exam: 2144 hours INDICATION: Abdominal pain, nausea, right lower quadrant pain COMPARISON: CT of the abdomen and pelvis June 14, 2017 TECHNIQUE: The abdomen and pelvis were scanned using a multidetector helical scanner. Coronal and sagittal reformations were obtained. Routine protocol performed. IV Contrast: 100 cc Isovue-370 Oral Contrast: Gastrografin CTDIvol has been reviewed. It is below the limits set by the Radiation Protocol Committee (RPC). FINDINGS: LOWER THORAX: No consolidations LIVER: No masses BILIARY: The gallbladder is unremarkable. No ductal dilation. SPLEEN: No masses PANCREAS: No masses ADRENALS: No nodules KIDNEYS: Symmetric perfusion. No enhancing masses. No hydronephrosis. GI TRACT: Severe distention of the stomach and proximal duodenum with a transition point at the level of the superior mesenteric artery. The remainder of the small and large bowel are unremarkable. Neither a normal nor abnormal appendix is identified. No secondary signs of appendicitis. VESSELS: No interval change PERITONEUM/RETROPERITONEUM: No free air or fluid LYMPH NODES: No lymphadenopathy REPRODUCTIVE ORGANS: Unremarkable BLADDER: Unremarkable SOFT TISSUES: Unremarkable BONES: No suspicious bone lesions. IMPRESSION: Once again there is severe distention of the stomach with a transition point in the mid third portion of the duodenum. No interval change in exam. Signed by: Dr. Charlene Mccauley M.D. on 07/30/2017 10:23 PM
[2017-07-31] VITALS (7 sets, daily range): BP systolic 91–129; BP diastolic 53–129
[2017-07-31] MEDS ORDERED: PIPER-TAZ 3.375 GM/50 ML BAG IV SCH
[2017-07-31] MEDS: MORPHINE SULFATE 2 MG/ML SYR IV PRN ×5 (01:14→21:30)
[2017-07-31] MEDS: PIPER-TAZ 3.375 GM 50 ML IV SCH ×4 (01:14→17:31)
[2017-07-31] MEDS: SODIUM CHLORIDE 0.9% 1000ML 1,000 ML IV SCH ×4 (01:14→20:34)
[2017-07-31] MEDS: ONDANSETRON HCL INJ 2 MG/ML VIAL IV PRN ×4 (01:15→17:53)
[2017-07-31] MEDS ORDERED: PIPER-TAZ 3.375 GM 50 ML IV SCH (06:00)
[2017-07-31 06:08] LABS: BASOPHILS % 0.3 % (0.0-1.0); EOSINOPHILS # (AUTO) 0.3 (0.0-0.4); EOSINOPHILS % 3.9 % (0.0-6.0); HEMATOCRIT 36.4 % (38.2-49.6); HEMOGLOBIN 12.4 g/dL (14.0-18.0); LYMPHOCYTES # (AUTO) 1.7 (1.0-3.2); LYMPHOCYTES % 26.4 % (18.0-39.1); MEAN CORPUSCULAR HEMOGLOBIN 31.2 pg (28-32); MEAN CORPUSCULAR HGB CONC 34.1 g/dL (31-35); MEAN CORPUSCULAR VOLUME 91.7 fL (81-99); MONOCYTES # (AUTO) 0.4 (0.2-0.8); MONOCYTES % 5.6 % (4.4-11.3); NEUTROPHILS # (AUTO) 4.1 (2.1-6.9); NEUTROPHILS % 63.3 % (38.7-80.0); PLATELET COUNT 253 x10e3/uL (140-360); RED BLOOD COUNT 3.97 x10e6/uL (4.3-5.7); RED CELL DISTRIBUTION WIDTH 14.1 % (11.7-14.4)
[2017-07-31 06:32] LABS: ALANINE AMINOTRANSFERASE 9 IU/L (0-55); ALBUMIN 3.9 g/dL (3.5-5.0); ALBUMIN/GLOBULIN RATIO 1.3 (0.8-2.0); ALKALINE PHOSPHATASE 45 IU/L (40-150); BLOOD UREA NITROGEN 7 mg/dL (7-26); BUN/CREATININE RATIO 8 (6-25); CARBON DIOXIDE 28 mmol/L (22-29); CHLORIDE 107 mmol/L (98-107); CREATININE, SERUM 0.85 mg/dL (0.72-1.25); EST GLOMERULAR FILTRATION RATE > 60 ML/MIN (60-); GLUCOSE 89 mg/dL (74-118); SODIUM 143 mmol/L (136-145)
[2017-07-31] MEDS: PANTOPRAZOLE 40 MG 10ML VIAL IV SCH ×2 (08:00→16:46)
--- NOTE | 2017-07-31 13:36 | History and Physical ---
PATIENT LOCATION: Room 214. PRESENTING COMPLAINT: Intractable upper abdominal pain with nausea and vomiting for 1 day. HISTORY OF PRESENT ILLNESS: This 37-year-old male was admitted from ER last night. Patient came to ER from home for intractable nausea and vomiting with abdominal pain. He had similar episodes at least 2 times in recent past when he was admitted in April 2017, was admitted in May 2017 when he had a laparotomy and lysis of adhesions by Dr. Remy. Patient states that he was at his baseline normally until yesterday when he started getting recurrence of the abdominal pain with nausea and vomiting. He denies any passage of blood with vomitus. Pain was mostly localized about right upper to mid abdomen. His pain was severe, intense, and dull-aching pain at the height of pain episode as per his statement. Patient denies any passage of blood in the stool. He had last bowel movement the day before yesterday as per patient's statement. Patient also denies any fever, chest pain, or shortness of breath. REVIEW OF SYSTEMS CONSTITUTIONAL: No fever, chills, or rigor. ENT: No visual disturbance. No nasal congestion. No earache. CARDIOVASCULAR: No chest pain, shortness of breath, or palpitation. PULMONARY: No cough or hemoptysis. GI: Abdominal pain with nausea and vomiting as per the HPI. No passage of blood with stool or black stool. No passage of blood with vomitus. Last bowel movement 2 days ago. : No dysuria. No hematuria. MUSCULOSKELETAL, SKIN, LYMPHORETICULAR: Patient has chronic low back pain. No joint swelling. No joint deformity. No skin rash. No swollen glands. NEUROLOGICAL: No loss of consciousness, seizure, or headache. HISTORY OF PAST MEDICAL ILLNESS: GERD, gastritis, hiatal hernia, status post EGD in recent past, recurrent small bowel obstructions status post exploratory laparotomy and adhesiolysis in May this year at this hospital by Dr. Remy, Sjogren syndrome with dryness of mouth and eyes, oropharyngeal dysphagia, chronic lumbar spondylosis, and chronic low back pain. No history of diabetes, hypertension, or CAD. HISTORY OF PAST SURGERY: Exploratory laparotomy and lysis of adhesions in May [address] Remy, EGD also done in May [address] New, bilateral inguinal herniorrhaphy in 2015, esophageal dysmotility, cardiac catheterization done by Dr. Hill in 2009, which was negative. ALLERGIES: PATIENT IS ALLERGIC TO HYDROMORPHONE, CAUSES SKIN RASH. HOME MEDICATIONS: As per med reconciliation sheet. Patient follows with pain management and takes hydrocodone at night as per his statement. SOCIAL HISTORY: Patient lives at [place], [place], with his . His is at bedside. [place] as a [place]. HABITS: Denies smoking, drinking, and substance abuse history. FAMILY HISTORY: Mother had lupus. Father is alive and healthy. Siblings alive and healthy. No family history of diabetes, CAD, stroke, or cancer. PHYSICAL EXAMINATION VITALS: BP 114/79, now 91/54, pulse 65 to 89, temperature 98.0, respiratory rate 18, and SpO2 100% on room air. GENERAL: Alert, lying in bed without any acute distress now, feeling better after narcotic IV last night as per patient statement. HEENT: NC, AT. Pupils equally reacting. No pallor. No icterus. Oral mucosa moist. Nasogastric tube for suction in place. NECK: No JVD. No carotid bruits. No lymphadenopathy. No thyromegaly. HEART: S1 and S2 regular. No murmur. LUNGS: Clear to auscultation. ABDOMEN: Mild diffuse tenderness. No distention. No palpable mass. Bowel sounds active in all quadrants. EXTREMITIES: No edema, cyanosis, or clubbing. NEUROLOGICAL: Motor grossly equal on both sides. SKIN: No rashes or ulceration present. LAB DATA: CBC: WBC 7.8, hemoglobin 12, hematocrit 37, platelet 299, MCV 90, RDW 13, neutrophil 61, and lymphocyte 30. PT 12.6, INR 1.02, and PTT 32.4. Chemistry panel: Sodium 136, potassium 3.8, chloride 99, CO2 26, anion gap 11, BUN 8, creatinine 0.82, glucose 95, lactic acid 5.1, calcium 9.4, and magnesium 2.0. Total bilirubin 0.4, AST 18, ALT 13, and alk phos 49. CK 35, CK-MB 0.6, and troponin 0.001. Total protein 7.7, albumin 4.4, and globulin 3.3. Amylase 67 and lipase 44. Urinalysis negative for protein, glucose, ketone, nitrite, and leukocyte esterase 2+, wbc's 11-20, and rbc's 0-5. MICROBIOLOGICAL DATA: Urine culture in progress. RADIOLOGICAL DATA: CT of abdomen and pelvis with IV contrast: Severe dilatation of the stomach with transition point in the mid-third portion of duodenum. No interval change since prior study. EKG not done. ASSESSMENT AND PLAN 1. Recurrent small bowel obstruction with gastric dilatation; patient is status post exploratory laparotomy in May this year, exact etiology not clear. Patient is kept on nasogastric suction with IV fluid. We would follow surgery recommendation. Dr. Remy is familiar with the patient. He is consulted from ER. 2. Gastroesophageal reflux disease, gastritis, and hiatal hernia: Patient is on Protonix, continue present PPI IV for now. 3. Sjogren syndrome with esophageal dysmotility: Continue to monitor. Continue PPI IV for now. 4. Urinary tract infection: Continue IV ceftriaxone. Follow the urine culture report. Check patient's PSA level too. 5. Chronic low back pain: Patient was on Mcdade at home. He follows up with pain management. We will keep the patient on pain medication started from ER. He is allergic to HYDROMORPHONE. 6. Discharge plan would depend upon patient's hospital course and recommendation of the general surgeon. We would also consult gastroenterology. Patient did not have any colonoscopy in the past as per his statement. Job#: [id number] JOSIE MENDOSA
--- NOTE | 2017-07-31 22:30 | Consultation ---
DATE OF CONSULTATION: July 31, 2017 GI CONSULT NOTE REFERRING PHYSICIAN: Dr. Marcus Lopez REASON FOR CONSULT: Recurrent gastric outlet obstruction. HISTORY OF PRESENTING ILLNESS: A 37-year-old very pleasant male, who developed some small-bowel obstruction during Thanksgiving last year. That time, obstruction was managed conservatively and resolved on its own. However, he developed another episode of small-bowel obstruction that required laparoscopic exploration, and he was found to have adhesions that was lysed. They were lysed by Dr. Remy. Patient was discharged home successfully. He is presenting again this time with acute onset of nausea, vomiting, upper abdominal pain, not able to pass any flatus. He has had repeat CT scan done that showed dilated stomach with the transition point in the mid 3rd portion of the duodenum at the level of superior mesenteric artery. NG tube with low-intermittent wall suction has been placed. Patient's nausea has resolved. Dr. Remy is familiar with the patient. He has already been consulted. REVIEW OF SYSTEMS: A 12-point system reviewed, symptomatology is limited to GI system. PAST MEDICAL HISTORY: Hiatal hernia, GERD, has had upper endoscopy by Dr. New on last admission that was pretty much unremarkable. Sjogren syndrome, intermittent oropharyngeal dysphagia secondary to dryness, chronic lumbar spondylosis, chronic low back pain. No diabetes, hypertension or any coronary artery disease. PAST SURGICAL HISTORY: Recent laparoscopic abdominal exploration, laparoscopic by Dr. New in May this year, cardiac catheterization by Dr. Hill in 2009. FAMILY HISTORY: Negative. SOCIAL HISTORY: . Lives with his in [place]. No smoking, alcohol or any illicit drug use. ALLERGIES: HYDROMORPHONE. THIS CAUSES RASH. HOME MEDICATIONS 1. Cyclobenzaprine 5 mg t.i.d. 2. Nitazoxanide (Alinia). 3. Zofran. 4. Pantoprazole 40 mg daily. 5. Pregabalin 75 mg t.i.d. 6. Hydrocodone with acetaminophen 1 tablet as needed. PHYSICAL EXAMINATION VITAL SIGNS: Temperature 97.6, pulse 98, respiration 18, blood pressure 129 to 97/54 to 91/54. GENERAL: Not in any acute distress. HEENT: Moist mucous membranes. Anicteric sclerae. NG tube is in place draining blood-tinged clear liquid. CVS: S1, S2 regular. LUNGS: Bilaterally grossly clear. ABDOMEN: Soft, thin abdomen. No palpable tenderness. No mass or hernia. Positive bowel sounds. EXTREMITIES: Warm. No leg edema. LAB: Peripheral cell count show WBC 6.44, hemoglobin 12.4, hematocrit 36.5, platelet count 253,000. Electrolytes normal. BUN 8, creatinine 0.85. Liver enzymes normal. PT 12.6, INR 1.02. Urine negative. WBC 11 to [address] of the abdomen and pelvis with IV as well as oral contrast revealed a normal solid organ. There is severe distention of the stomach with transition point in the mid 3rd portion of the duodenum at the level of superior mesenteric artery. No free fluid or any abdominal adenopathy. IMPRESSION: Gastric outlet obstruction, most likely due to adhesions versus superior mesenteric artery syndrome. Patient is thin with low muscle mass. PLAN: Agree to continue NG tube to low-intermittent wall suction. IV PPI for GI prophylaxis. Blood-tinged aspirate from the NG is not concerning. This is likely due to NG trauma rather than any ongoing GI bleeding. Further recommendation regarding gastric outlet obstruction as per Dr. Remy. He may require again laparoscopic reexploration. I thank Dr. Lopez for allowing me to participate in the care of this patient. Job#: [id number] CQ MTDSahra
[2017-08-01] VITALS: BP 106/53
[2017-08-01] MEDS: PIPER-TAZ 3.375 GM 50 ML IV SCH ×5 (00:14→23:49)
[2017-08-01] MEDS: MORPHINE SULFATE 2 MG/ML SYR IV PRN ×5 (00:30→22:30)
[2017-08-01] MEDS: ONDANSETRON HCL INJ 2 MG/ML VIAL IV PRN ×5 (00:30→22:30)
[2017-08-01 04:00] VITALS: BP 104/56
[2017-08-01] MEDS: SODIUM CHLORIDE 0.9% 1000ML 1,000 ML IV SCH ×3 (05:01→23:49)
[2017-08-01 06:51] LABS: BASOPHILS # (AUTO) 0.1 (0.0-0.1); BASOPHILS % 0.6 % (0.0-1.0); EOSINOPHILS # (AUTO) 0.1 (0.0-0.4); HEMOGLOBIN 11.5 g/dL (14.0-18.0); LYMPHOCYTES # (AUTO) 1.2 (1.0-3.2); LYMPHOCYTES % 13.6 % (18.0-39.1); MEAN CORPUSCULAR HEMOGLOBIN 31.6 pg (28-32); MEAN CORPUSCULAR HGB CONC 33.8 g/dL (31-35); MEAN CORPUSCULAR VOLUME 93.4 fL (81-99); MONOCYTES # (AUTO) 0.5 (0.2-0.8); MONOCYTES % 5.2 % (4.4-11.3); NEUTROPHILS % 79.1 % (38.7-80.0); PLATELET COUNT 271 x10e3/uL (140-360); RED BLOOD COUNT 3.64 x10e6/uL (4.3-5.7); RED CELL DISTRIBUTION WIDTH 14.3 % (11.7-14.4)
[2017-08-01 07:10] LABS: ALANINE AMINOTRANSFERASE 7 IU/L (0-55); ALBUMIN 3.4 g/dL (3.5-5.0); ALBUMIN/GLOBULIN RATIO 1.2 (0.8-2.0); ALKALINE PHOSPHATASE 38 IU/L (40-150); ANION GAP 16.8 mmol/L (8-16); BLOOD UREA NITROGEN 14 mg/dL (7-26); BUN/CREATININE RATIO 18 (6-25); CALCIUM 8.3 mg/dL (8.4-10.2); CARBON DIOXIDE 20 mmol/L (22-29); CHLORIDE 108 mmol/L (98-107); CREATININE, SERUM 0.79 mg/dL (0.72-1.25); EST GLOMERULAR FILTRATION RATE > 60 ML/MIN (60-); GLUCOSE 66 mg/dL (74-118); POTASSIUM 3.8 mmol/L (3.5-5.1); SODIUM 141 mmol/L (136-145)
[2017-08-01 08:00] VITALS: BP 103/50
[2017-08-01] MEDS: PANTOPRAZOLE 40 MG 10ML VIAL IV SCH ×2 (08:22→16:59)
[2017-08-01 12:00] VITALS: BP 97/52
[2017-08-01 16:00] VITALS: BP 103/60
--- NOTE | 2017-08-01 18:19 | Progress Note ---
DATE: August 01, 2017 GI PROGRESS NOTE SUBJECTIVE: The patient was able to pass some flatus. NG is draining dark greenish liquid, also sometimes light brown in color. The patient has not been seen by surgeon, Dr. Remy, yet. No bowel movement. REVIEW OF SYSTEMS: GENERAL: No fever or chills. CVS: No chest pain or palpitations. RESPIRATORY: No cough or expectoration. MEDICATIONS: Pantoprazole 40 mg IV twice daily, sodium chloride IV fluid at 125 mL an hour, Zosyn IV q.6 h., Zofran 4 mg IV q.4 h., morphine sulfate 2 mg q.3 h. as needed. PHYSICAL EXAMINATION VITAL SIGNS: Temperature 97.2, pulse 75, respirations 18, blood pressure 97/52 to 103/58, oxygen saturation 97% on room air. GENERAL: Not in any acute distress. HEENT: Moist mucous membranes. Anicteric sclerae. NG is in place. CVS: S1 and S2, regular. LUNGS: Grossly clear. ABDOMEN: Thin. Mild palpable epigastric tenderness, no rebound, rigidity or guarding. Positive bowel sounds. EXTREMITIES: Warm. No leg edema. LABORATORY DATA: WBC 8.78, hemoglobin 11.5, hematocrit 34, platelet count 271,000, sodium 140, potassium 3.8, chloride 108, bicarb 20, BUN 14, creatinine 0.79. Liver enzymes normal. IMPRESSION: Gastric outlet obstruction, likely due to adhesions versus superior mesenteric artery syndrome. PLAN: Continue NG to low ____ wall suction. The patient passed flatus today, which is a good sign. Will continue present medications. Further recommendations based upon Dr. Remy, surgeon, evaluation. Job#: [id number] GH
[2017-08-01 20:00] VITALS: BP 101/51
[2017-08-02] VITALS (8 sets, daily range): BP systolic 88–104; BP diastolic 52–66
[2017-08-02] MEDS: ONDANSETRON HCL INJ 2 MG/ML VIAL IV PRN ×5 (02:30→22:01)
[2017-08-02] MEDS: MORPHINE SULFATE 2 MG/ML SYR IV PRN ×5 (02:39→22:01)
[2017-08-02] MEDS: PIPER-TAZ 3.375 GM 50 ML IV SCH ×3 (05:35→18:00)
[2017-08-02 06:12] LABS: BASOPHILS # (AUTO) 0.1 (0.0-0.1); BASOPHILS % 0.6 % (0.0-1.0); EOSINOPHILS # (AUTO) 0.4 (0.0-0.4); EOSINOPHILS % 4.5 % (0.0-6.0); HEMATOCRIT 33.5 % (38.2-49.6); HEMOGLOBIN 11.1 g/dL (14.0-18.0); LYMPHOCYTES # (AUTO) 1.8 (1.0-3.2); MEAN CORPUSCULAR HGB CONC 33.1 g/dL (31-35); MEAN CORPUSCULAR VOLUME 93.6 fL (81-99); MONOCYTES # (AUTO) 0.4 (0.2-0.8); MONOCYTES % 5.5 % (4.4-11.3); NEUTROPHILS # (AUTO) 5.3 (2.1-6.9); PLATELET COUNT 228 x10e3/uL (140-360); RED BLOOD COUNT 3.58 x10e6/uL (4.3-5.7); RED CELL DISTRIBUTION WIDTH 14.2 % (11.7-14.4)
--- NOTE | 2017-08-02 06:52 | Diagnostic Imaging Report ---
EXAM: ABDOMEN-1VIEW (KUB), supine INDICATION: Small bowel obstruction COMPARISON: KUB June 29, [address] of the abdomen and pelvis July 30, 2017 FINDINGS: LINES/TUBES: Interval placement of nasal/lateral gastric tube that terminates in expected location of the body of the stomach. BOWEL PATTERN: Interval decompression of the stomach. No bowel obstruction. SOFT TISSUES: Surgical changes of lower abdominal hernia repair LUNG BASES: Not included BONES: No acute findings. IMPRESSION: Interval decompression of the stomach with nasal/orogastric tube. Signed by: Dr. Charlene Mccauley M.D. on 08/02/2017 6:48 AM
[2017-08-02 06:54] LABS: ALANINE AMINOTRANSFERASE 6 IU/L (0-55); ALBUMIN 3.2 g/dL (3.5-5.0); ALBUMIN/GLOBULIN RATIO 1.1 (0.8-2.0); ALKALINE PHOSPHATASE 35 IU/L (40-150); AMYLASE 31 U/L (25-125); ANION GAP 13.6 mmol/L (8-16); BLOOD UREA NITROGEN 12 mg/dL (7-26); BUN/CREATININE RATIO 16 (6-25); CALCIUM 8.1 mg/dL (8.4-10.2); CARBON DIOXIDE 20 mmol/L (22-29); CHLORIDE 105 mmol/L (98-107); CREATININE, SERUM 0.74 mg/dL (0.72-1.25); EST GLOMERULAR FILTRATION RATE > 60 ML/MIN (60-); GLUCOSE 62 mg/dL (74-118); LIPASE 7 U/L (8-78); POTASSIUM 3.6 mmol/L (3.5-5.1); SODIUM 135 mmol/L (136-145)
[2017-08-02] MEDS: SODIUM CHLORIDE 0.9% 1000ML 1,000 ML IV SCH ×2 (07:29→15:29)
[2017-08-02] MEDS: PANTOPRAZOLE 40 MG 10ML VIAL IV SCH ×2 (08:57→17:00)
[2017-08-03] MEDS: PIPER-TAZ 3.375 GM 50 ML IV SCH ×5 (00:57→23:30)
[2017-08-03 01:07] VITALS: BP 93/52
[2017-08-03] MEDS: ONDANSETRON HCL INJ 2 MG/ML VIAL IV PRN ×5 (02:04→23:31)
[2017-08-03] MEDS: MORPHINE SULFATE 2 MG/ML SYR IV PRN ×5 (02:04→23:32)
[2017-08-03 05:38] VITALS: BP 105/61
[2017-08-03 07:23] LABS: ANION GAP 17.8 mmol/L (8-16); BLOOD UREA NITROGEN 9 mg/dL (7-26); BUN/CREATININE RATIO 13 (6-25); CALCIUM 8.4 mg/dL (8.4-10.2); CARBON DIOXIDE 15 mmol/L (22-29); CHLORIDE 112 mmol/L (98-107); CREATININE, SERUM 0.71 mg/dL (0.72-1.25); EST GLOMERULAR FILTRATION RATE > 60 ML/MIN (60-); POTASSIUM 3.8 mmol/L (3.5-5.1); SODIUM 141 mmol/L (136-145)
[2017-08-03 07:25] LABS: GLUCOSE 56 mg/dL (74-118)
[2017-08-03] MEDS ORDERED: DEXTROSE 50% SYRINGE 50 ML IV ONE ×2 (07:48→08:00)
[2017-08-03 08:00] VITALS: BP 105/61
[2017-08-03] MEDS: DEXTROSE 5%/0.45% SOD CHL 1,000 ML IV SCH ×2 (08:00→17:06)
[2017-08-03] MEDS: PANTOPRAZOLE 40 MG 10ML VIAL IV SCH ×2 (09:00→17:00)
[2017-08-03 09:04] VITALS: BP 95/58
[2017-08-03 12:17] VITALS: BP 92/60
[2017-08-03] MEDS ORDERED: ENOXAPARIN SOD INJ 40 MG/0.4 ML SYR SC SCH (17:00)
[2017-08-03 21:07] VITALS: BP 100/51
[2017-08-03] MEDS: DIPHENHYDRAMINE HCL 25 MG CAP PO PRN (22:04)
--- NOTE | 2017-08-03 23:49 | Progress Note ---
DATE: August 03, 2017 GI PROGRESS NOTE SUBJECTIVE: NG tube is out. He is not having any nausea, vomiting. He is passing flatus. He has not had any bowel movement. Patient has been seen by Dr. Remy yesterday. Dr. Remy has advised him to undergo surgery. He thinks that patient does not have any superior mesenteric artery syndrome. Patient can be getting intravenous fluid. He has not been allowed to eat anything by mouth yet. REVIEW OF SYSTEMS GENERAL: No fever or chills. RESPIRATORY: No cough or expectoration. CVS: No chest pain or palpitation. MEDICATIONS 1. Zofran 4 mg IV q.4 h p.r.n. 2. Morphine sulfate 2 mg q.3 h p.r.n. 3. Zosyn 50 mL per hour q.6 h p.r.n. 4. Lovenox 40 mg IV daily. 5. Pantoprazole 40 mg IV b.i.d. 6. Diphenhydramine 25 mg p.o. nightly p.r.n. Abdominal x-ray on August 02, 2017, showed interval decompression of the stomach with nasogastric tube. IMPRESSIONS 1. Gastric outlet obstruction, secondary to adhesions versus small-bowel dysmotility. 2. Superior mesenteric artery syndrome unlikely as per surgical evaluation. PLAN: Since patient has been n.p.o. for more than 4-5 days. From GI standpoint, I recommend clear liquid to soft diet. However, I will leave the decision of starting oral feeding to surgery. Will continue to monitor him clinically. Surgical intervention as per Dr. Remy. Job#: [id number] CQ
[2017-08-04] VITALS (7 sets, daily range): BP systolic 90–112; BP diastolic 47–73
[2017-08-04] MEDS: DEXTROSE 5%/0.45% SOD CHL 1,000 ML IV SCH ×3 (04:44→23:26)
[2017-08-04] MEDS: PIPER-TAZ 3.375 GM 50 ML IV SCH ×4 (05:36→23:26)
[2017-08-04] MEDS: ONDANSETRON HCL INJ 2 MG/ML VIAL IV PRN ×4 (05:56→22:04)
[2017-08-04] MEDS: MORPHINE SULFATE 2 MG/ML SYR IV PRN ×4 (05:57→22:04)
[2017-08-04 06:08] LABS: BASOPHILS % 0.9 % (0.0-1.0); EOSINOPHILS # (AUTO) 0.2 (0.0-0.4); EOSINOPHILS % 5.6 % (0.0-6.0); HEMATOCRIT 31.9 % (38.2-49.6); HEMOGLOBIN 10.9 g/dL (14.0-18.0); LYMPHOCYTES # (AUTO) 1.6 (1.0-3.2); LYMPHOCYTES % 38.1 % (18.0-39.1); MEAN CORPUSCULAR HEMOGLOBIN 31.1 pg (28-32); MEAN CORPUSCULAR HGB CONC 34.2 g/dL (31-35); MEAN CORPUSCULAR VOLUME 91.1 fL (81-99); MONOCYTES # (AUTO) 0.3 (0.2-0.8); MONOCYTES % 7.7 % (4.4-11.3); NEUTROPHILS # (AUTO) 2.1 (2.1-6.9); NEUTROPHILS % 47.7 % (38.7-80.0); PLATELET COUNT 224 x10e3/uL (140-360)
[2017-08-04 06:34] LABS: ALANINE AMINOTRANSFERASE 6 IU/L (0-55); ALKALINE PHOSPHATASE 33 IU/L (40-150); ANION GAP 10.2 mmol/L (8-16); BLOOD UREA NITROGEN < 5 mg/dL (7-26); CALCIUM 8.2 mg/dL (8.4-10.2); CARBON DIOXIDE 25 mmol/L (22-29); CHLORIDE 110 mmol/L (98-107); CREATININE, SERUM 0.71 mg/dL (0.72-1.25); EST GLOMERULAR FILTRATION RATE > 60 ML/MIN (60-); GLUCOSE 101 mg/dL (74-118); POTASSIUM 3.2 mmol/L (3.5-5.1); SODIUM 142 mmol/L (136-145)
[2017-08-04 06:38] LABS: BUN/CREATININE RATIO 7 (6-25)
[2017-08-04] MEDS ORDERED: POTASSIUM CHLORIDE 20 MEQ TAB CR PO ONE (08:15)
[2017-08-04] MEDS: PANTOPRAZOLE 40 MG 10ML VIAL IV SCH ×2 (08:35→18:08)
[2017-08-04] MEDS: DIPHENHYDRAMINE HCL 25 MG CAP PO PRN (21:30)
[2017-08-05 04:00] VITALS: BP 92/54
[2017-08-05] MEDS: PIPER-TAZ 3.375 GM 50 ML IV SCH (05:53)
[2017-08-05 06:42] LABS: ANION GAP 9.3 mmol/L (8-16); CALCIUM 8.3 mg/dL (8.4-10.2); CARBON DIOXIDE 29 mmol/L (22-29); CHLORIDE 110 mmol/L (98-107); CREATININE, SERUM 0.79 mg/dL (0.72-1.25); EST GLOMERULAR FILTRATION RATE > 60 ML/MIN (60-); GLUCOSE 94 mg/dL (74-118); POTASSIUM 3.3 mmol/L (3.5-5.1); SODIUM 145 mmol/L (136-145)
[2017-08-05 06:51] LABS: BLOOD UREA NITROGEN < 2 mg/dL (7-26); BUN/CREATININE RATIO 3 (6-25)
[2017-08-05] MEDS: PANTOPRAZOLE 40 MG 10ML VIAL IV SCH (07:24)
[2017-08-05] MEDS ORDERED: POTASSIUM CHLORIDE 10 MEQ TABCR PO ONE ×2 (08:50→09:00)
[2017-08-05 09:30] VITALS: BP 94/65
--- NOTE | 2017-08-05 14:42 | Progress Note ---
DATE: August 04, 2017 SUBJECTIVE: Patient has been started on clear liquid diet, which he is tolerating it very well. He has had one liquidy bowel movement today. Denies any abdominal pain. No nausea, vomiting. REVIEW OF SYSTEMS: GENERAL: No fever or chills. RESPIRATORY: No cough or expectoration. CVS: No chest pain, palpitation. MEDICATIONS: 1. Zosyn 50 mL q.6h. intravenously. 2. Pantoprazole 40 mg IV twice daily. 3. Zofran 4 mg IV q.6h. as needed. 4. Morphine sulfate 2 mg IV q.3h. as needed. 5. Diphenhydramine 25 mg nightly p.o. p.r.n. 6. D5 NS at 100 mL an hour. 7. Potassium chloride 20 mEq daily. PHYSICAL EXAMINATION: VITAL SIGNS: Temperature 96.8, pulse 55, respiration 18, blood pressure 107/56 to 105/73, oxygen saturation 100% on room air. GENERAL: Not in any acute distress. HEENT: Moist mucous membranes. Anicteric sclerae. CVS: S1 and S2 regular. LUNGS: Bilaterally grossly clear. ABDOMEN: Soft, nondistended. No palpable epigastric tenderness. No mass or hernia. Positive bowel sounds. EXTREMITIES: Warm. No leg edema. LABS: WBC 4.31, hemoglobin 10.9, hematocrit 31.9, MCV 91.1, platelet count 224,000. Sodium 142, potassium 3.2, chloride 110, bicarb 25, BUN 5, creatinine 0.71. Liver enzymes normal. PT 12.6, INR 1.02. IMPRESSION: 1. Gastric outlet obstruction secondary to adhesions versus small bowel dysmotility. 2. Possibility of superior mesenteric artery syndrome. PLAN: Patient is tolerating clear liquid diet. This patient is likely going to be discharged on clear liquid, and advance the diet at home slowly to soft food. If patient develops any upper GI symptoms, he will come to the emergency room. Patient is expected to have surgery sometime in September. Job#: [id number] DR MENDOSA
== END 2017-08-05 09:30 | disposition home or self-care (01) | DRG 381 ==
LOC: ER 18:24 → ERHOLD 23:39 → MED/SURG2 23:57
PROVIDERS: ADMIT Internal Medicine; ATTEND Internal Medicine
DX: K31.1 Adult hypertrophic pyloric stenosis (principal); K56.50 Intestinal adhesions [bands], unspecified as to partial versus complete obstruction; K55.1 Chronic vascular disorders of intestine; E44.0 Moderate protein-calorie malnutrition; M35.00 Sjogren syndrome, unspecified; E86.0 Dehydration; N39.0 Urinary tract infection, site not specified; Z68.1 Body mass index [BMI] 19.9 or less, adult; K21.9 Gastro-esophageal reflux disease without esophagitis; K29.70 Gastritis, unspecified, without bleeding; M54.5 Low back pain; G89.29 Other chronic pain
CPT/HCPCS: 36415; 74018; 74177; 80048; 80053; 81001; 82150; 82550; 82553; 82948; 83605; 83690; 83735; 84484; 85025; 85610; 85730; 87040; 87086; 99284; J0696; J1650; J2270; J2405; J2543; J2550; J7030; J7799; Q9967

== ENCOUNTER 2017-10-11 07:05 | Inpatient (IN) | payer OTHER ==
[2017-10-08 10:31] LABS: BASOPHILS % 0.6 % (0.0-1.0); EOSINOPHILS # (AUTO) 0.3 (0.0-0.4); EOSINOPHILS % 4.2 % (0.0-6.0); HEMATOCRIT 40.1 % (38.2-49.6); HEMOGLOBIN 13.2 g/dL (14.0-18.0); LYMPHOCYTES # (AUTO) 1.9 (1.0-3.2); LYMPHOCYTES % 28.7 % (18.0-39.1); MEAN CORPUSCULAR HEMOGLOBIN 31.4 pg (28-32); MEAN CORPUSCULAR HGB CONC 32.9 g/dL (31-35); MEAN CORPUSCULAR VOLUME 95.5 fL (81-99); MONOCYTES # (AUTO) 0.5 (0.2-0.8); MONOCYTES % 7.2 % (4.4-11.3); NEUTROPHILS # (AUTO) 3.9 (2.1-6.9); NEUTROPHILS % 59.1 % (38.7-80.0); PLATELET COUNT 305 x10e3/uL (140-360); RED CELL DISTRIBUTION WIDTH 15.1 % (11.7-14.4)
[2017-10-08 10:38] LABS: ANION GAP 14.1 mmol/L (8-16); BLOOD UREA NITROGEN 6 mg/dL (7-26); BUN/CREATININE RATIO 7 (6-25); CALCIUM 9.9 mg/dL (8.4-10.2); CARBON DIOXIDE 27 mmol/L (22-29); CHLORIDE 105 mmol/L (98-107); CREATININE, SERUM 0.82 mg/dL (0.72-1.25); EST GLOMERULAR FILTRATION RATE > 60 ML/MIN (60-); GLUCOSE 106 mg/dL (74-118); POTASSIUM 4.1 mmol/L (3.5-5.1); SODIUM 142 mmol/L (136-145)
[2017-10-11] VITALS (7 sets, daily range): BP systolic 110–134; BP diastolic 59–72
[~2017-10-11] VITALS: Ht 193 cm; Wt 68.9 kg
[~2017-10-11 07:05] MED LIST changes: -HYDROCODON-ACE1 EAC9 BLADIN; +HYDROCODON-ACE1 EAC9 PO
--- OUTSIDE RECORDS SUMMARY | 2017-10-11 07:07 | XMS REPORT | Continuity of Care Document ---
Author Author [facility] Organization [facility] Address [address] [place] [address] Phone Unavailable Care Team Providers Care Workers Compensation Claims Assistant Name Role Phone ASHLEE LERNER MD PCP Insurance Providers Guarantor Ryland Serna Address [address] [place] [address] Email [email or web address] Payer [employer] Pos Policy Number [id number] Subscriber's Name Gauri Serna Teressa Relationship 01 Group Number [id number] Group Name [id number] Effective Date 14 Advance Directives Directive Response Recorded Date/Time Does the patient have an advance directive? No 07/31/17 1:00am If yes, is advance directive on file with [facility]? No 07/31/17 1:00am If not on file with [facility] will patient provide a copy? No 07/31/17 1:00am Do you have a Directive to Physician? No 07/30/17 6:55pm Do you have a Medical Power of Advertising Editor? No 07/30/17 6:55pm Do you have an out of hospital Do Not Resuscitate Order? No 07/30/17 6:55pm Do you have any special needs we should be aware of? No 07/30/17 6:55pm Do you have a support person here with you today? Yes 07/30/17 6:55pm Did patient receive Notice of Privacy Practices? Yes 07/30/17 6:55pm Did patient receive patient rights and responsibilities? Yes 07/30/17 6:55pm Problems Medical Problem Onset Date Status Gastric outlet obstruction Unknown SBO (small bowel obstruction) Unknown Sjogren's syndrome Unknown Superior mesenteric artery syndrome Unknown Medications Current Home Medications Medication [...] Onset Date Status Hx Psychiatric Problems No 07/31/2017 1:00am Not Applicable Not Applicable Hx Eating Disorder No 07/31/2017 1:00am Not Applicable Not Applicable Hx Substance Use Disorder No 07/31/2017 1:00am Not Applicable Not Applicable Hx Depression No 07/31/2017 1:00am Not Applicable Not Applicable Hx Alcohol Use No 07/31/2017 1:00am Not Applicable Not Applicable Hx Substance Use Treatment No 07/31/2017 1:00am Not Applicable Not Applicable Hx Physical Abuse No 07/31/2017 1:00am Not Applicable Not Applicable Smoking Status Start Date Stop Date Never Smoker Hospital Discharge Instructions No hospital discharge instruction information available. Plan of Care Discharge Date 08/05/17 9:30am Disposition HOME, SELF-CARE Instructions/Education Provided Bowel Obstruction Prescriptions See Medication Section Referrals LORAINE REMY MD (Surgery) Order Date: 1 Week Entered Date: 08/05/2017 8:48am Address: [address] [place] [address] [place] [id number] Additional Instructions/Education Please follow up in Dr. Lerner's office for follow up BMP to check potassium level. Follow up with Ollie Remy next week. Remain on clear liquid for 2-3 days, then advance to full liquid diet, followed by GI soft diet. Functional Status Query Response Date Recorded Assistive Devices None July 31, 2017 1:00am Ambulation Ability Independent July 31, 2017 1:00am Toileting Ability Independent August 04, 2017 6:15pm Allergies, Adverse Reactions, Alerts Allergen Type Severity Reaction Status Last Updated Hydromorphone Allergy Mild ITCHING/REDNESS Active 06/22/17 Immunizations No immunization information available. Vital Signs Acute Vital Signs Vital Response Date/Time Temperature (Fahrenheit) 96.6 degrees F (97.6 - 99.5) 08/05/2017 9:30am Pulse Pulse Rate (adult) 53 bpm (60 - 90) 08/05/2017 9:30am Respiratory Rate 18 bpm (12 - 24) 08/05/2017 9:30am Blood Pressure 94/65 mm Hg 08/05/2017 9:30am Height 6 ft 4 in 07/30/2017 6:42pm Weight 132.03 lb 08/02/2017 8:34am Body Mass Index 16.1 kg/m^2 08/02/2017 8:34am Results Laboratory Results Test Name Result Units Flags Reference Collection Date/Time Result Date/ Time Comments Triglycerides Level 56 MG/DL 0-149 04/24/2017 6:00am [...] 4.3 3.9-4.7 04/24/2017 6:00am 04/24/2017 6: 54am Thyroid Stimulating Hormone (TSH) 2.309 uIU/mL 0.350-4.940 04/24/2017 6: 00am 04/24/2017 7:06am White Blood Count 4.31 x10e3/uL L 4.8-10.8 08/04/2017 5:49am 08/04/2017 6:13am Red Blood Count 3.50 x10e6/uL L 4.3-5.7 08/04/2017 5:49am 08/04/2017 6: 13am Hemoglobin 10.9 g/dL L 14.0-18.0 08/04/2017 5:49am 08/04/2017 6:13am Hematocrit 31.9 % L 38.2-49.6 08/04/2017 5:49am 08/04/2017 6:13am Mean Corpuscular Volume 91.1 fL 81-99 08/04/2017 5:49am 08/04/2017 6: 13am Mean Corpuscular Hemoglobin 31.1 pg 28-32 08/04/2017 5:49am 08/04/2017 6:13am Mean Corpuscular Hemoglobin Concent 34.2 g/dL 31-35 08/04/2017 5:49am 08/04/2017 6:13am Red Cell Distribution Width 14.0 % 11.7-14.4 08/04/2017 5:49am 2017 6:13am Platelet Count 224 x10e3/uL 140-360 08/04/2017 5:49am 08/04/2017 6: 13am Neutrophils (%) (Auto) 47.7 % 38.7-80.0 08/04/2017 5:49am 08/04/2017 6: 13am Lymphocytes (%) (Auto) 38.1 % 18.0-39.1 08/04/2017 5:49am 08/04/2017 6: 13am Monocytes (%) (Auto) 7.7 % 4.4-11.3 08/04/2017 5:49am 08/04/2017 6: 13am Eosinophils (%) (Auto) 5.6 % 0.0-6.0 08/04/2017 5:49am 08/04/2017 6: 13am Basophils (%) (Auto) 0.9 % 0.0-1.0 08/04/2017 5:49am 08/04/2017 6:13am IM GRANULOCYTES % 0.0 % 0.0-1.0 08/04/2017 5:49am 08/04/2017 6:13am Neutrophils # (Auto) 2.1 2.1-6.9 08/04/2017 5:49am 08/04/2017 6:13am Lymphocytes # (Auto) 1.6 1.0-3.2 08/04/2017 5:49am 08/04/2017 6:13am Monocytes # (Auto) 0.3 0.2-0.8 08/04/2017 5:49am 08/04/2017 6:13am Eosinophils # (Auto) 0.2 0.0-0.4 08/04/2017 5:49am 08/04/2017 6:13am Basophils # (Auto) 0.0 0.0-0.1 08/04/2017 5:49am 08/04/2017 6:13am Absolute Immature Granulocyte (auto 0 x10e3/uL 0-0.1 08/04/2017 5:49am 08/04/2017 6:13am Prothrombin Time 12.6 seconds 11.9-14.5 07/30/2017 6:58pm 07/30/2017 7: 45pm Prothromb Time International Ratio 1.02 07/30/2017 6:58pm 2017 7:45pm Oral Anticoagulant Therapy INR Values: 1. Low Intensity Therapy 1.5 - 2.0 2. Moderate Intensity Therapy 2.0 - 3.0 3. High Intensity Therapy(1) 2.5 - 3.5 4. High Intensity Therapy(2) 3.0 - 4.0 5. Panic Value INR > 5.0 Activated Partial Thromboplast Time 32.4 seconds 23.8-35.5 07/30/2017 6: 58pm 07/30/2017 7:45pm Urine Color YELLOW YELLOW 07/30/2017 6:38pm 07/30/2017 7:42pm Urine Clarity CLEAR CLEAR 07/30/2017 6:38pm 07/30/2017 7:42pm Urine Specific Bowie 1.010 1.010-1.025 07/30/2017 6:38pm 2017 7:42pm Urine pH 8 H 5 - 7 07/30/2017 6:38pm 07/30/2017 7:42pm Urine Leukocyte Esterase 2+ H NEGATIVE 07/30/2017 6:38pm 07/30/2017 7: 42pm Urine Nitrite NEGATIVE NEGATIVE 07/30/2017 6:38pm 07/30/2017 7:42pm Urine Protein NEGATIVE NEGATIVE 07/30/2017 6:38pm 07/30/2017 7:42pm Urine Glucose (UA) NEGATIVE NEGATIVE 07/30/2017 6:38pm 07/30/2017 7: 42pm Urine Ketones NEGATIVE NEGATIVE 07/30/2017 6:38pm 07/30/2017 7:42pm Urine Urobilinogen 0.2 mg/dL 0.2 - 1 07/30/2017 6:38pm 07/30/2017 7: 42pm Urine Bilirubin NEGATIVE NEGATIVE 07/30/2017 6:38pm 07/30/2017 7: 42pm Urine Blood 1+ H NEGATIVE 07/30/2017 6:38pm 07/30/2017 7:42pm Urine WBC 11-20 /HPF H 0-5 07/30/2017 6:38pm 07/30/2017 7:54pm Urine RBC 0-5 /HPF 0-5 07/30/2017 6:38pm 07/30/2017 7:54pm Urine Bacteria NONE /HPF NONE 07/30/2017 6:38pm 07/30/2017 7:54pm Urine Epithelial Cells NONE /LPF NONE 07/30/2017 6:38pm 07/30/2017 7: 54pm Sodium Level 145 mmol/L 136-145 08/05/2017 5:40am 08/05/2017 6:51am Potassium Level 3.3 mmol/L L 3.5-5.1 08/05/2017 5:40am 08/05/2017 6: 51am Chloride Level 110 mmol/L H 98-107 08/05/2017 5:40am 08/05/2017 6:51am Carbon Dioxide Level 29 mmol/L 22-29 08/05/2017 5:40am 08/05/2017 6: 51am Anion Gap 9.3 mmol/L 8-16 08/05/2017 5:40am 08/05/2017 6:51am Blood Urea Nitrogen < 2 mg/dL L 7-08/05/2017 5:40am 08/05/2017 6: 51am Creatinine 0.79 mg/dL 0.72-1.25 08/05/2017 5:40am 08/05/2017 6:51am BUN/Creatinine Ratio 3 L 6-25 08/05/2017 5:40am 08/05/2017 6:51am Estimat Glomerular Filtration Rate > 60 ML/MIN 60- 08/05/2017 5:40am 6:51am Ranges were taken from the National Kidney Disease Education Program and the National Kidney Foundation literature. Reference ranges: 60 or greater: Normal 16-59 (for 3 consecutive months): Chronic kidney disease 15 or less: Kidney failure Glucose Level 94 mg/dL 74-118 08/05/2017 5:40am 08/05/2017 6:51am Calcium Level 8.3 mg/dL L 8.4-10.2 08/05/2017 5:40am 08/05/2017 6:51am Bedside Glucose 121 mg/dL H 70-120 08/03/2017 11:56am 08/03/2017 12: 07pm Meter ID: [id number] Lactic Acid Level 5.1 MG/DL 4.5-19.8 07/30/2017 8:50pm 07/30/2017 9: 11pm Magnesium Level 2.0 MG/DL 1.3-2.1 07/30/2017 6:38pm 07/30/2017 7:50pm Total Bilirubin 0.4 mg/dL 0.2-1.2 08/04/2017 5:49am 08/04/2017 6:38am Aspartate Amino Transf (AST/SGOT) 12 IU/L 5-34 08/04/2017 5:49am 2017 6:38am Alanine Aminotransferase (ALT/SGPT) 6 IU/L 0-55 08/04/2017 5:49am 08/04 6:38am Total Protein 5.9 g/dL L 6.5-8.1 08/04/2017 5:49am 08/04/2017 6:38am Albumin 3.0 g/dL L 3.5-5.0 08/04/2017 5:49am 08/04/2017 6:38am Globulin 2.9 g/dL 2.3-3.5 08/04/2017 5:49am 08/04/2017 6:38am Albumin/Globulin Ratio 1.0 0.8-2.0 08/04/2017 5:49am 08/04/2017 6: 38am Alkaline Phosphatase 33 IU/L L 40-150 08/04/2017 5:49am 08/04/2017 6: 38am Creatine Kinase 35 IU/L 30-200 07/30/2017 6:38pm 07/30/2017 7:50pm Creatine Kinase MB 0.60 ng/mL 0-5.0 07/30/2017 6:38pm 07/30/2017 7: 56pm Troponin I < 0.001 ng/mL 0-0.300 07/30/2017 6:38pm 07/30/2017 7:56pm Amylase Level 31 U/L 25-125 08/02/2017 5:54am 08/02/2017 6:54am Lipase 7 U/L L 8-78 08/02/2017 5:54am 08/02/2017 6:54am Microbiology Results Procedure Source Organism/Result Collection Date/Time Result Date/Time Result Status Blood Culture Blood NO GROWTH AFTER 72 HOURS 9:01am 08/05/2017 9:07am Preliminary Procedures Procedure Status Date Provider(s) EXCISION OF STOMACH, PYLORUS, ENDO, DIAGN Completed 04/26/17 COLUMBA REDDY MD EXCISION OF LOWER ESOPHAGUS, ENDO, DIAGN Completed 04/26/17 COLUMBA REDDY MD EGD with biopsy Completed 06/15/17 MARION HICKS MD Exploratory laparotomy Completed 06/22/17 LORAINE REMY MD X-ray of chest, two views Active 04/22/17 JOHN HAN MD Computed tomography of abdomen and pelvis with contrast Active 04/22/17 JOHN HAN MD Computed tomography of abdomen and pelvis with contrast Active 06/14/17 RAYA ANDERSON MD Computed tomography of abdomen and pelvis with contrast Active 07/30/17 JOHN HAN MD Encounters Encounter Location Arrival/Admit Date Discharge/Depart Date Attending Provider Discharged Inpatient [facility] 07/30/17 11:39pm 9:30am ASHLEE LERNER MD Discharged Inpatient [facility] 06/15/17 1:20pm 07/02/17 2:15pm ASHLEE LERNER MD Discharged Inpatient [facility] 04/23/17 2:51am 04/27/17 10:20am ASHLEE LERNER MD
[2017-10-11] MEDS ORDERED: MORPHINE SULFATE 1 MG/ML 30ML PCA IV PRN (11:30)
[2017-10-11] MEDS ORDERED: NALOXONE HCL INJ 0.4 MG/ML AMP IV PRN (11:30)
[2017-10-11] MEDS ORDERED: PROMETHAZINE HCL (IM) 25 MG/ML VIAL IV PRN (11:30)
[2017-10-11] MEDS: SODIUM CHLORIDE 0.9% 250ML IRRIG IR SCH ×4 (11:30→23:49)
[2017-10-11] MEDS ORDERED: ACETAMINOPHEN 1000 MG/100 ML IV PRN (11:30)
[2017-10-11] MEDS ORDERED: FENTANYL CITRATE/PF 100MCG/2 ML INJ ONE ×2 (11:34→14:48)
[2017-10-11] MEDS ORDERED: MORPHINE SULFATE 1 MG/ML 30ML PCA ONE (11:36)
[2017-10-11] MEDS: MORPHINE SULFATE 1 MG/ML 30ML PCA IV PRN ×2 (11:40→18:40)
[2017-10-11] MEDS ORDERED: ACETAMINOPHEN 1000 MG/100 ML 100 ML IV ONE (12:21)
--- NOTE | 2017-10-11 13:10 | Operative Report ---
DATE OF PROCEDURE: October 11, 2017 PREOPERATIVE DIAGNOSIS: Obstruction of the 4th portion of the duodenum. POSTOPERATIVE DIAGNOSIS: Obstruction of the 4th portion of the duodenum. OPERATION PERFORMED: Exploratory laparotomy and Isabel-en-Y duodenal bypass. ASSISTANTS: Dr. En Remy and MAXIME Cloud. ANESTHESIA: General. COMPLICATIONS: None. ESTIMATED BLOOD LOSS: 50 mL. DESCRIPTION OF PROCEDURE: With the patient lying in bed in the supine position, under good general endotracheal anesthesia, the abdomen was prepped with Betadine solution and draped in the usual manner. A right subcostal incision was made. It was carried down through the subcutaneous tissue into the rectus sheath. The posterior rectus sheath was opened, and the abdomen was entered. Upon entry into the abdominal cavity, some anterior abdominal adhesions were encountered from the patient's previous surgery, but these were rather mild. These were slowly and carefully taken down. Immediately the duodenum became apparent. The duodenum was easily mobilized by kocherizing it without any difficulty. The duodenum itself appeared to be normal. The NG tube was properly positioned in the mid stomach. Exploration of the rest of the abdomen did not reveal any other abnormalities. The ligament of Treitz was then identified. Distal to the ligament of Treitz, the jejunum was then divided with an application of the MARTELL-75 stapler at a spot that would easily reach into the right upper quadrant. After this was done, the loop was then brought up to the right upper quadrant, and we went ahead and proceeded to do a functional vjdr-lt-[id number] anastomosis. The posterior row was created with interrupted sutures of 3-0 seromuscular silk, and then the duodenum and jejunum were opened up to match and give us a nice, wide anastomosis. The internal row was then done with a running 3-0 chromic suture, and the anastomosis was completed with an anterior layer of seromuscular 3-0 silk. This gave us a satisfactory anastomosis, which was widely patent with no tension whatsoever. The Isabel-en-Y was then performed distal to the duodenojejunostomy with another application of the MARTELL-75 stapler, and the remaining opening was closed with a TA-60 stapler. The anastomosis was then further reinforced with 3-0 silk sutures, and the mesenteric rent was closed with a running suture of 2-0 Vicryl. The abdomen was then irrigated, and perfect hemostasis was ascertained. The wound was then closed in layers. The peritoneum was closed with a running suture of #1 Vicryl. The anterior rectus sheath was closed with a running suture of #1 Vicryl, and the skin was closed with clips. A dressing was applied. The sponge, lap and needle count was correct. Patient tolerated the procedure well and returned to the recovery room in stable condition. Job#: [id number]
[2017-10-11] MEDS ORDERED: CEFAZOLIN SOD 1 GM/NS 50ML 50 ML IV SCH (14:00)
[2017-10-11] MEDS ORDERED: MORPHINE SULFATE INJ 10 MG/ML ONE (14:48)
[2017-10-11] MEDS ORDERED: MIDAZOLAM HCL 2 MG/2 ML VIAL ONE (14:48)
[2017-10-11] MEDS: DEXTROSE 5%/LACTATED RINGERS 1,000 ML IV SCH ×2 (15:11→19:38)
[2017-10-11] MEDS: PANTOPRAZOLE 40 MG 10ML VIAL IV SCH (15:12)
[2017-10-11] MEDS: CEFAZOLIN SOD 1 GM VIAL IV SCH (17:16)
[2017-10-11] MEDS ORDERED: CEFAZOLIN SOD 1 GM VIAL ONE (19:42)
[2017-10-11] MEDS ORDERED: DEXAMETHASONE SOD PHOS INJ 4 MG/ML VIAL ONE (19:42)
[2017-10-11] MEDS ORDERED: KETOROLAC TROMETHAMINE 30 MG/ML VIAL ONE (19:42)
[2017-10-11] MEDS ORDERED: ONDANSETRON HCL INJ 2 MG/ML VIAL ONE (19:42)
[2017-10-11] MEDS ORDERED: SEVOFLURANE INHAL SOLN 250 ML PEN BTL ONE (19:42)
[2017-10-11] MEDS ORDERED: LIDOCAINE HCL 2% LOCAL INJ 5 ML SDV VIAL INJ ONE (19:42)
[2017-10-11] MEDS ORDERED: ACETAMINOPHEN 1000 MG/100 ML IV ONE (19:42)
[2017-10-11] MEDS ORDERED: GLYCOPYRROLATE INJ 1MG/ 5 ML SYR ONE (19:42)
[2017-10-11] MEDS ORDERED: NEOSTIGMINE 5 MG/5ML SYR ONE (19:42)
[2017-10-11] MEDS ORDERED: PROPOFOL IV EMULSION 10 MG/ML 20 ML VIAL ONE (19:42)
[2017-10-11] MEDS ORDERED: ROCURONIUM BROMIDE 10 MG/ML 5ML VIAL ONE (19:42)
[2017-10-12] VITALS (7 sets, daily range): BP systolic 104–123; BP diastolic 58–69
[2017-10-12] MEDS: CEFAZOLIN SOD 1 GM VIAL IV SCH (00:30)
[2017-10-12] MEDS: MORPHINE SULFATE 1 MG/ML 30ML PCA IV PRN ×2 (02:56→21:00)
[2017-10-12] MEDS: DEXTROSE 5%/LACTATED RINGERS 1,000 ML IV SCH ×3 (03:30→19:51)
[2017-10-12] MEDS: SODIUM CHLORIDE 0.9% 250ML IRRIG IR SCH ×6 (03:30→23:31)
[2017-10-12 06:51] LABS: BASOPHILS % 0.2 % (0.0-1.0); EOSINOPHILS # (AUTO) 0.1 (0.0-0.4); EOSINOPHILS % 0.9 % (0.0-6.0); HEMATOCRIT 36.6 % (38.2-49.6); HEMOGLOBIN 12.3 g/dL (14.0-18.0); LYMPHOCYTES # (AUTO) 1.4 (1.0-3.2); LYMPHOCYTES % 9.6 % (18.0-39.1); MEAN CORPUSCULAR HEMOGLOBIN 31.7 pg (28-32); MEAN CORPUSCULAR HGB CONC 33.6 g/dL (31-35); MEAN CORPUSCULAR VOLUME 94.3 fL (81-99); MONOCYTES # (AUTO) 0.5 (0.2-0.8); MONOCYTES % 3.5 % (4.4-11.3); NEUTROPHILS # (AUTO) 12.3 (2.1-6.9); NEUTROPHILS % 85.5 % (38.7-80.0); PLATELET COUNT 259 x10e3/uL (140-360); RED BLOOD COUNT 3.88 x10e6/uL (4.3-5.7); RED CELL DISTRIBUTION WIDTH 14.8 % (11.7-14.4)
[2017-10-12 07:17] LABS: ANION GAP 10.6 mmol/L (8-16); BLOOD UREA NITROGEN 6 mg/dL (7-26); BUN/CREATININE RATIO 9 (6-25); CARBON DIOXIDE 30 mmol/L (22-29); CHLORIDE 106 mmol/L (98-107); CREATININE, SERUM 0.69 mg/dL (0.72-1.25); EST GLOMERULAR FILTRATION RATE > 60 ML/MIN (60-); GLUCOSE 116 mg/dL (74-118); POTASSIUM 4.6 mmol/L (3.5-5.1); SODIUM 142 mmol/L (136-145)
[2017-10-12] MEDS: PANTOPRAZOLE 40 MG 10ML VIAL IV SCH (11:21)
[2017-10-12 15:01] LABS: BASOPHILS % 0.3 % (0.0-1.0); EOSINOPHILS # (AUTO) 0.3 (0.0-0.4); EOSINOPHILS % 2.3 % (0.0-6.0); HEMATOCRIT 36.8 % (38.2-49.6); HEMOGLOBIN 12.5 g/dL (14.0-18.0); LYMPHOCYTES # (AUTO) 1.4 (1.0-3.2); LYMPHOCYTES % 12.2 % (18.0-39.1); MEAN CORPUSCULAR HEMOGLOBIN 31.7 pg (28-32); MEAN CORPUSCULAR VOLUME 93.4 fL (81-99); MONOCYTES # (AUTO) 0.4 (0.2-0.8); MONOCYTES % 3.5 % (4.4-11.3); NEUTROPHILS # (AUTO) 9.7 (2.1-6.9); NEUTROPHILS % 81.4 % (38.7-80.0); PLATELET COUNT 251 x10e3/uL (140-360); RED BLOOD COUNT 3.94 x10e6/uL (4.3-5.7); RED CELL DISTRIBUTION WIDTH 14.9 % (11.7-14.4)
--- NOTE | 2017-10-12 16:21 | Consultation ---
DATE OF CONSULTATION: October 12, 2017 CHIEF COMPLAINT: Abdominal pain, nausea and vomiting. REASON FOR MEDICAL CONSULTATION: Medical management. HISTORY OF PRESENT ILLNESS: This is a 37-year-old male with a past medical history of chronic low back pain on opioid medicine and Sjogren's syndrome who was having recurrent intestinal obstruction. He was admitted a couple of times to this hospital for intestinal obstruction. Finally, Dr. Rey Remy decided to do surgery. The patient had surgery yesterday, exploratory laparotomy and anastomosis. The patient is doing better with NG tube, alert, no fever, no cough, no diarrhea. PAST MEDICAL HISTORY: 1. Lumbar spondylosis. 2. Chronic low back pain. 3. Sjogren's syndrome with dryness of mouth. PAST SURGICAL HISTORY: Just yesterday, exploratory laparotomy. ALLERGIES: NO KNOWN DRUG ALLERGIES. SOCIAL HISTORY: The patient is and lives with his in [place]. HABITS: Denies smoking, denies alcohol use. PHYSICAL EXAMINATION: GENERAL: This is a 37-year-old male who is alert and oriented x3 and he is in no acute distress. VITALS: Temperature of 97.9, pulse 60, respiratory rate 18, blood pressure 110/60. HEENT: Head is normocephalic. Pupils bilaterally equal to light. Extraocular movements intact. NECK: Supple. No JVD and no carotid bruit. Has NG tube. LUNGS: Clear to auscultation and percussion bilaterally. No added sound. HEART: S1 and S2. Regular rate and rhythm. No S3, S4 or murmur. ABDOMEN: Distended, tenderness. EXTREMITIES: No pedal edema. Peripheral pulses +1. 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 LABORATORY DATA: White count 14.42, hemoglobin and hematocrit normal. Platelet count 259,000. Chemistry: Sodium 142, potassium 4.6. BUN and creatinine normal. CO2 30. ASSESSMENT: 1. Recurrent intestinal obstruction, status post surgical resection and anastomosis. 2. Chronic low back pain. 3. Sjogren's syndrome. PLAN: N.p.o., NG tube drainage, IV fluids at 125 mL per hour. CBC and CMP tomorrow. Continue postoperative medications and pain management. Protonix 40 IV q.24 h. Bilateral legs SCDs. Job#: [id number] GH
[2017-10-13] VITALS (7 sets, daily range): BP systolic 103–131; BP diastolic 57–71
[2017-10-13] MEDS: DEXTROSE 5%/LACTATED RINGERS 1,000 ML IV SCH ×4 (03:26→23:58)
[2017-10-13] MEDS: SODIUM CHLORIDE 0.9% 250ML IRRIG IR SCH ×6 (03:27→23:57)
[2017-10-13 06:59] LABS: BASOPHILS % 0.1 % (0.0-1.0); EOSINOPHILS # (AUTO) 0.3 (0.0-0.4); EOSINOPHILS % 2.6 % (0.0-6.0); HEMOGLOBIN 11.6 g/dL (14.0-18.0); LYMPHOCYTES # (AUTO) 0.7 (1.0-3.2); MEAN CORPUSCULAR HEMOGLOBIN 31.7 pg (28-32); MEAN CORPUSCULAR HGB CONC 34.1 g/dL (31-35); MEAN CORPUSCULAR VOLUME 92.9 fL (81-99); MONOCYTES # (AUTO) 0.4 (0.2-0.8); MONOCYTES % 3.9 % (4.4-11.3); NEUTROPHILS # (AUTO) 9.6 (2.1-6.9); PLATELET COUNT 228 x10e3/uL (140-360); RED BLOOD COUNT 3.66 x10e6/uL (4.3-5.7); RED CELL DISTRIBUTION WIDTH 14.7 % (11.7-14.4)
[2017-10-13 07:42] LABS: ALANINE AMINOTRANSFERASE 27 IU/L (0-55); ALKALINE PHOSPHATASE 42 IU/L (40-150); ANION GAP 10.4 mmol/L (8-16); BLOOD UREA NITROGEN 5 mg/dL (7-26); BUN/CREATININE RATIO 8 (6-25); CALCIUM 8.6 mg/dL (8.4-10.2); CARBON DIOXIDE 28 mmol/L (22-29); CHLORIDE 102 mmol/L (98-107); CREATININE, SERUM 0.64 mg/dL (0.72-1.25); EST GLOMERULAR FILTRATION RATE > 60 ML/MIN (60-); GLUCOSE 113 mg/dL (74-118); POTASSIUM 3.4 mmol/L (3.5-5.1); SODIUM 137 mmol/L (136-145)
[2017-10-13] MEDS: MORPHINE SULFATE 1 MG/ML 30ML PCA IV PRN ×2 (08:43→20:44)
[2017-10-13] MEDS: PANTOPRAZOLE 40 MG 10ML VIAL IV SCH (11:30)
[2017-10-13] MEDS ORDERED: POTASSIUM CHLORIDE 20MEQ/100ML 200 ML IV ONE (13:30)
[2017-10-13] MEDS ORDERED: POTASSIUM CHLORIDE 20MEQ/100ML 100 ML IV ONE ×2 (13:45→14:30)
[2017-10-13] MEDS: BISACODYL 10 MG SUPP PR SCH (20:39)
[2017-10-14] VITALS (8 sets, daily range): BP systolic 100–120; BP diastolic 54–68
[2017-10-14] MEDS: SODIUM CHLORIDE 0.9% 250ML IRRIG IR SCH ×5 (03:27→19:09)
[2017-10-14 06:48] LABS: BASOPHILS % 0.2 % (0.0-1.0); EOSINOPHILS # (AUTO) 0.3 (0.0-0.4); EOSINOPHILS % 4.1 % (0.0-6.0); HEMATOCRIT 32.1 % (38.2-49.6); HEMOGLOBIN 10.9 g/dL (14.0-18.0); LYMPHOCYTES # (AUTO) 0.9 (1.0-3.2); LYMPHOCYTES % 10.7 % (18.0-39.1); MEAN CORPUSCULAR HEMOGLOBIN 31.5 pg (28-32); MEAN CORPUSCULAR VOLUME 92.8 fL (81-99); MONOCYTES # (AUTO) 0.5 (0.2-0.8); MONOCYTES % 6.3 % (4.4-11.3); NEUTROPHILS # (AUTO) 6.4 (2.1-6.9); NEUTROPHILS % 78.3 % (38.7-80.0); PLATELET COUNT 216 x10e3/uL (140-360); RED BLOOD COUNT 3.46 x10e6/uL (4.3-5.7); RED CELL DISTRIBUTION WIDTH 14.1 % (11.7-14.4)
[2017-10-14 07:23] LABS: ANION GAP 10.3 mmol/L (8-16); BLOOD UREA NITROGEN 5 mg/dL (7-26); BUN/CREATININE RATIO 8 (6-25); CALCIUM 9.1 mg/dL (8.4-10.2); CARBON DIOXIDE 30 mmol/L (22-29); CHLORIDE 103 mmol/L (98-107); CREATININE, SERUM 0.63 mg/dL (0.72-1.25); EST GLOMERULAR FILTRATION RATE > 60 ML/MIN (60-); GLUCOSE 111 mg/dL (74-118); POTASSIUM 3.3 mmol/L (3.5-5.1); SODIUM 140 mmol/L (136-145)
[2017-10-14] MEDS: BISACODYL 10 MG SUPP PR SCH (08:00)
[2017-10-14] MEDS: POTASSIUM CHLORIDE 20 MEQ in DEXTROSE 5%/LACTATED RINGERS 1,000 ML IV SCH ×2 (08:15→18:00)
[2017-10-14] MEDS: PANTOPRAZOLE 40 MG 10ML VIAL IV SCH (11:30)
[2017-10-14] MEDS ORDERED: MORPHINE SULFATE 4 MG/ML SYR IV PRN (13:15)
[2017-10-14] MEDS: MORPHINE SULFATE 2 MG/ML SYR IV PRN ×3 (15:00→21:33)
[2017-10-15] VITALS (7 sets, daily range): BP systolic 101–112; BP diastolic 53–57
[2017-10-15] MEDS: POTASSIUM CHLORIDE 20 MEQ in DEXTROSE 5%/LACTATED RINGERS 1,000 ML IV SCH ×5 (00:25→21:35)
[2017-10-15] MEDS: MORPHINE SULFATE 2 MG/ML SYR IV PRN ×7 (00:56→21:38)
[2017-10-15 07:19] LABS: ANION GAP 11.7 mmol/L (8-16); BLOOD UREA NITROGEN < 5 mg/dL (7-26); CALCIUM 9.3 mg/dL (8.4-10.2); CARBON DIOXIDE 28 mmol/L (22-29); CHLORIDE 108 mmol/L (98-107); CREATININE, SERUM 0.66 mg/dL (0.72-1.25); EST GLOMERULAR FILTRATION RATE > 60 ML/MIN (60-); GLUCOSE 108 mg/dL (74-118); POTASSIUM 3.7 mmol/L (3.5-5.1); SODIUM 144 mmol/L (136-145)
[2017-10-15 07:25] LABS: BUN/CREATININE RATIO 8 (6-25)
[2017-10-15] MEDS: PANTOPRAZOLE 40 MG 10ML VIAL IV SCH (12:03)
[2017-10-16] VITALS (8 sets, daily range): BP systolic 96–109; BP diastolic 50–59
[2017-10-16] MEDS: MORPHINE SULFATE 2 MG/ML SYR IV PRN ×5 (00:59→23:46)
[2017-10-16] MEDS: HYDROCODONE/APAP 7.5MG-325MG 1 EA TAB PO PRN (06:46)
[2017-10-16 07:16] LABS: ALANINE AMINOTRANSFERASE 14 IU/L (0-55); ALBUMIN/GLOBULIN RATIO 0.9 (0.8-2.0); ALKALINE PHOSPHATASE 37 IU/L (40-150); ANION GAP 10.6 mmol/L (8-16); BLOOD UREA NITROGEN 6 mg/dL (7-26); BUN/CREATININE RATIO 9 (6-25); CALCIUM 9.2 mg/dL (8.4-10.2); CARBON DIOXIDE 28 mmol/L (22-29); CHLORIDE 109 mmol/L (98-107); CREATININE, SERUM 0.69 mg/dL (0.72-1.25); EST GLOMERULAR FILTRATION RATE > 60 ML/MIN (60-); GLUCOSE 96 mg/dL (74-118); POTASSIUM 3.6 mmol/L (3.5-5.1); SODIUM 144 mmol/L (136-145)
[2017-10-16] MEDS: PANTOPRAZOLE 40 MG 10ML VIAL IV SCH (11:42)
[2017-10-16] MEDS: POTASSIUM CHLORIDE 20 MEQ in DEXTROSE 5%/LACTATED RINGERS 1,000 ML IV SCH ×2 (13:14→19:33)
[2017-10-17] VITALS (7 sets, daily range): BP systolic 95–113; BP diastolic 51–66
[2017-10-17] MEDS: POTASSIUM CHLORIDE 20 MEQ in DEXTROSE 5%/LACTATED RINGERS 1,000 ML IV SCH ×2 (02:42→22:49)
[2017-10-17] MEDS: MORPHINE SULFATE 2 MG/ML SYR IV PRN ×5 (04:38→22:46)
[2017-10-17] MEDS ORDERED: SODIUM CHLORIDE 0.9% 50ML 50 ML ONE (09:02)
[2017-10-17] MEDS: PANTOPRAZOLE 40 MG 10ML VIAL IV SCH (11:18)
[2017-10-17] MEDS ORDERED: MAGNESIUM HYDROXIDE 30 ML UDC PO NR (13:30)
[2017-10-17] MEDS ORDERED: BISACODYL 10 MG SUPP PR NR (17:15)
[2017-10-17] MEDS ORDERED: BISACODYL 10 MG SUPP PR ONE (17:16)
[2017-10-18] VITALS (7 sets, daily range): BP systolic 97–108; BP diastolic 50–60
[2017-10-18] MEDS: POTASSIUM CHLORIDE 20 MEQ in DEXTROSE 5%/LACTATED RINGERS 1,000 ML IV SCH ×2 (05:22→12:41)
[2017-10-18] MEDS: MORPHINE SULFATE 2 MG/ML SYR IV PRN (06:06)
[2017-10-18 06:41] LABS: BASOPHILS % 0.5 % (0.0-1.0); EOSINOPHILS # (AUTO) 0.6 (0.0-0.4); EOSINOPHILS % 7.1 % (0.0-6.0); HEMATOCRIT 32.4 % (38.2-49.6); HEMOGLOBIN 10.8 g/dL (14.0-18.0); LYMPHOCYTES # (AUTO) 1.8 (1.0-3.2); LYMPHOCYTES % 22.8 % (18.0-39.1); MEAN CORPUSCULAR HEMOGLOBIN 30.9 pg (28-32); MEAN CORPUSCULAR HGB CONC 33.3 g/dL (31-35); MEAN CORPUSCULAR VOLUME 92.6 fL (81-99); MONOCYTES # (AUTO) 0.6 (0.2-0.8); MONOCYTES % 8.1 % (4.4-11.3); NEUTROPHILS # (AUTO) 4.8 (2.1-6.9); NEUTROPHILS % 61.2 % (38.7-80.0); PLATELET COUNT 284 x10e3/uL (140-360)
[2017-10-18 07:05] LABS: ALANINE AMINOTRANSFERASE 11 IU/L (0-55); ALBUMIN 3.2 g/dL (3.5-5.0); ALKALINE PHOSPHATASE 43 IU/L (40-150); ANION GAP 11.9 mmol/L (8-16); BLOOD UREA NITROGEN 6 mg/dL (7-26); BUN/CREATININE RATIO 8 (6-25); CALCIUM 9.2 mg/dL (8.4-10.2); CARBON DIOXIDE 29 mmol/L (22-29); CHLORIDE 107 mmol/L (98-107); CREATININE, SERUM 0.73 mg/dL (0.72-1.25); EST GLOMERULAR FILTRATION RATE > 60 ML/MIN (60-); GLUCOSE 100 mg/dL (74-118); POTASSIUM 3.9 mmol/L (3.5-5.1); SODIUM 144 mmol/L (136-145)
[2017-10-18] MEDS: PANTOPRAZOLE 40 MG 10ML VIAL IV SCH (12:04)
[2017-10-18] MEDS: HYDROCODONE/APAP 7.5MG-325MG 1 EA TAB PO PRN ×2 (12:41→21:13)
[2017-10-19] VITALS: BP 103/51
[2017-10-19 04:00] VITALS: BP 109/63
[2017-10-19] MEDS: POTASSIUM CHLORIDE 20 MEQ in DEXTROSE 5%/LACTATED RINGERS 1,000 ML IV SCH (07:14)
[2017-10-19 07:36] LABS: ANION GAP 11.3 mmol/L (8-16); BLOOD UREA NITROGEN 10 mg/dL (7-26); BUN/CREATININE RATIO 14 (6-25); CALCIUM 9.5 mg/dL (8.4-10.2); CARBON DIOXIDE 28 mmol/L (22-29); CHLORIDE 108 mmol/L (98-107); CREATININE, SERUM 0.73 mg/dL (0.72-1.25); EST GLOMERULAR FILTRATION RATE > 60 ML/MIN (60-); GLUCOSE 92 mg/dL (74-118); POTASSIUM 4.3 mmol/L (3.5-5.1); SODIUM 143 mmol/L (136-145)
[2017-10-19 08:11] VITALS: BP 102/58
[2017-10-19] MEDS: PANTOPRAZOLE 40 MG 10ML VIAL IV SCH (10:58)
[2017-10-19] MEDS: HYDROCODONE/APAP 7.5MG-325MG 1 EA TAB PO PRN (10:58)
== END 2017-10-19 13:30 | disposition home or self-care (01) | DRG 326 ==
LOC: OR 07:05 → MED/SURG 13:09
PROVIDERS: ADMIT Surgery; ATTEND Surgery
PROC: 0D1 Gastrointestinal System, Bypass (ICD-10-PCS; principal; 2017-10-11 08:28)
DX: K31.5 Obstruction of duodenum (principal); E43 Unspecified severe protein-calorie malnutrition; Z68.1 Body mass index [BMI] 19.9 or less, adult; M35.00 Sjogren syndrome, unspecified; Z79.891 Long term (current) use of opiate analgesic; G89.29 Other chronic pain; M54.5 Low back pain
CPT/HCPCS: 36415; 80048; 80053; 82948; 85025; 86850; 86900; 93005; 96361; J0690; J1100; J1885; J2001; J2250; J2270; J2405; J2550; J3480; J7120

== ENCOUNTER 2020-02-26 14:33 | Emergency (ER) | payer BC ==
[~2020-02-26] VITALS: Ht 193 cm; Wt 81.6 kg
[2020-02-26] MEDS ORDERED: SODIUM CHLORIDE 0.9% 1000ML 1,000 ML IV SCH (14:45)
[2020-02-26] MEDS ORDERED: ONDANSETRON HCL INJ 2MG/ML 2ML 2 MG/ML VIAL IV PRN (14:45)
--- NOTE | 2020-02-26 15:08 | Emergency Department Note ---
History of Present Illnes History of Present Illness Chief Complaint: Abdominal Complaints History of Present Illness This is a 40 year old male Chief Complaint Comment PATIENT IN FROM HOME WITH COMPLAINTS OF INTERMITTENT ABDOMINAL PAIN SINCE THIS MORNING; PATIENT WITH HISTORY OF SMALL BOWEL OBSTRUCTIONS; PATIENT RATES PAIN 7/10 AT THIS TIME. STATES THAT HE STOPPED EATING WHEN THE PAIN STARTED. Historian: Patient Arrival Mode: Car Acid Tank Cleaner Required: No Onset (how long ago): day(s) (2) Location: Abdomen Quality: Dull Radiation: Reports non-radiation Severity: moderate Onset quality: gradual Duration (how long): day(s) (2) Timing of current episode: constant Progression: worsening Chronicity: recurrent Context: Denies recent illness, Denies recent surgery Relieving factors: none Exacerbating factors: none Associated symptoms: Reports denies other symptoms Treatments prior to arrival: none Past Medical/Family History Physician Review I have reviewed the patient's past medical and family history. Any updates have been documented here. Past Medical History Recent Fever: No Clinical Suspicion of Infectio: No New/Unexplained Change in Ment: No Past Medical History: Chronic Back Pain Other Medical History: SJOGERN'S SYNDROME SBO GASTRITIS GERD CHRONIC BACK PAIN Past Surgical History: Appendectomy, T&A, Colon Resection Other Surgery: INGUINAL HERNIA SX 2016 BOWEL RESECTION X2 TONSILS Other Last Tetanus: UTD Review of Systems Review of Systems Constitutional: Reports no symptoms EENTM: Reports no symptoms Cardiovascular: Reports no symptoms Respiratory: Reports no symptoms Gastrointestinal: Reports as per HPI, Reports abdominal pain, Reports nausea Genitourinary: Reports no symptoms Musculoskeletal: Reports no symptoms Integumentary: Reports no symptoms Neurological: Reports no symptoms Psychological: Reports no symptoms Endocrine: Reports no symptoms Hematological/Lymphatic: Reports no symptoms Physical Exam Related Data Allergies: Coded Allergies: hydromorphone (Verified Allergy, Mild, ITCHING/REDNESS, 02/26/20) Triage Vital Signs Vital Signs Date Time Temp Pulse Resp B/P (MAP) Pulse Ox O2 Delivery O2 Flow Rate FiO2 02/26/20 14:43 97.8 99 18 128/84 100 Room Air Vital signs reviewed: Yes Physical Exam CONSTITUTIONAL Constitutional: Present well-developed, Present well-nourished HENT HENT: Present normocephalic, Present atraumatic, Present oropharynx clear/moist, Present nose normal HENT L/R: Present left ext ear normal, Present right ext ear normal EYES Eyes: Reports PERRL, Reports conjunctivae normal NECK Neck: Present ROM normal PULMONARY Pulmonary: Present effort normal, Present breath sounds normal CARDIOVASCULAR Cardiovascular: Present regular rhythm, Present heart sounds normal, Present capillary refill normal, Present normal rate GASTROINTESTINAL Abdominal: Present soft, Present bowel sounds normal, Present tender GENITOURINARY Genitourinary: Present exam deferred SKIN Skin: Present warm, Present dry MUSCULOSKELETAL Musculoskeletal: Present ROM normal NEUROLOGICAL Neurological: Present alert, Present oriented x 3, Present no gross motor or sensory deficits PSYCHOLOGICAL Psychological: Present mood/affect normal, Present judgement normal Results Laboratory Laboratory Laboratory Tests Test 02/26/20 14:50 Assessment & Plan Medical Decision Making MDM 40-year-old male presents for concerns of her small bowel obstruction. He has a history of this in the past 2/2 Sjogrens disease. States this feels similar. Exam shows mild abdominal tenderness. Labs/imaging sig for constipation. I instructed him to take his home mag citrate and other laxatives. I gave strict return precautions including nausea and vomiting. Patient states. Plan is appropriate for discharge. Reassessment Reassessment time: 17:33 Reassessment Well appearing, NAD Assessment & Plan Final Impression: (1) Constipation Depart Disposition: HOME, SELF-CARE Last Vital Signs Date Time Temp Pulse Resp B/P (MAP) Pulse Ox O2 Delivery O2 Flow Rate FiO2 02/26/20 14:43 97.8 99 18 128/84 100 Room Air Home Meds Reported Medications Pantoprazole Sodium* (PROTONIX) 40 Mg Tablet., 40 MG PO DAILY, TAB 04/27/17 Hydrocodone Bit/Acetaminophen (HYDROCODON-ACETAMINOPHN 10-325) 1 Each Tablet, 1 TAB PO DAILY PRN for PAIN 04/23/17 Cyclobenzaprine Hcl (FLEXERIL) 5 Mg Tablet, 5 MG PO BID 04/23/17 Medications in the ED Ondansetron HCl 4 mg Q4H PRN IV NAUSEA AND VOMITING; Start 02/26/20 at 14:45; Stop 03/27/20 at 14:44 Sodium Chloride 1,000 ml @ 100 mls/hr Q10H IV ; Start 02/26/20 at 14:45; Stop 03/27/20 at 14:44 MYLA CUEVAS MD Feb 26, 2020 15:08
[2020-02-26 15:10] LABS: BASOPHILS % 0.6 % (0.0-1.0); EOSINOPHILS # (AUTO) 0.2 (0.0-0.4); EOSINOPHILS % 2.1 % (0.0-6.0); HEMATOCRIT 42.6 % (38.2-49.6); HEMOGLOBIN 14.2 g/dL (14.0-18.0); MEAN CORPUSCULAR HEMOGLOBIN 31.3 pg (28-32); MEAN CORPUSCULAR HGB CONC 33.3 g/dL (31-35); MONOCYTES # (AUTO) 0.5 (0.2-0.8); MONOCYTES % 6.4 % (4.4-11.3); NEUTROPHILS # (AUTO) 4.4 (2.1-6.9); NEUTROPHILS % 62.8 % (38.7-80.0); PLATELET COUNT 312 x10e3/uL (140-360); RED BLOOD COUNT 4.53 x10e6/uL (4.3-5.7); RED CELL DISTRIBUTION WIDTH 13.6 % (11.7-14.4)
--- OUTSIDE RECORDS SUMMARY | 2020-02-26 15:19 | XMS REPORT | Clinical Summary ---
Author Author [facility] Address Unknown Phone Unavailable Care Team Providers Care Winding Operator Name Role Phone Pcp, No PCP Unavailable Allergies Comments Active Allergy Reactions Severity Noted Date Hydromorphone Hives 06/19/2019 Medications End Date Status Medication Sig Dispensed Refills Start Date Active pantoprazole (PROTONIX) Take 40 mg by 0 40 MG tablet mouth daily. Active cyclobenzaprine Take 5 mg by 0 (FLEXERIL) 5 MG tablet mouth 2 (two) times daily. Active HYDROcodone-acetaminophen Take 1 tablet 0 (NORCO 10-325) 10-325 mg by mouth per tablet once. Active Problems Problem Noted Date Sjogren's disease 06/20/2019 Dysphagia 06/19/2019 Encounters Care Team Description Date Type Specialty Sukhdev Almazan MD 06/21/2019 Anesthesia Gastroenterology Event Jaycob Guerrero MD UPPER ENDOSCOPY,BIOPSY 06/21/2019 Surgery Gastroenterology 06/21/2019 Travel Trey Dodson MD Brann, Christopher Scott, MD Parhizgar, Alireza, MD Dysphagia, unspecified type; Scleroderma (HCC) 06/19/2019 Hospital Cardiology - Encounter 06/21/2019 after 02/25/2019 Social History Date Tobacco Use Types Packs/Day Years Used Current Every Day Smoker 1 Tobacco Cessation: Ready to Quit: Yes; C ounseling Given: No Alcohol Use Drinks/Week oz/Week Comments No Alcohol Habits Answer Date Recorded How often do you have a drink containing alcohol? Never 06/21/2019 How many drinks containing alcohol do you have on No t asked a typical day when you are drinking? How often do you have six or more drinks on one Not asked occasion? Sex Assigned at Date Recorded Not on file Industry Job Start Date Occupation Not on file Not on file Not on file Travel End Travel History Travel Start No recent travel history available. Last Filed Vital Signs Time Taken Vital Sign Reading 06/21/2019 10:17 AM POWER CHECKER Blood Pressure 100/55 06/21/2019 10:17 AM POWER CHECKER Pulse 62 06/21/2019 10:17 AM POWER CHECKER Temperature 36.1 C (97 F) 06/21/2019 10:17 AM POWER CHECKER Respiratory Rate 16 06/21/2019 10:17 AM POWER CHECKER Oxygen Saturation 99% - Inhaled Oxygen - Concentration 06/20/2019 8:00 AM POWER CHECKER Weight 77.9 kg (171 lb 11.8 oz) 06/19/2019 8:00 PM POWER CHECKER Height 193 cm (6' 4") 06/20/2019 8:00 AM POWER CHECKER Body Mass Index 20.9 Plan of Treatment Not on file Procedures Comments Procedure Name Priority Date/Time Associated Diag nosis RHYTHM STRIP - SCAN 06/22/2019 5:37 PM POWER CHECKER XR ESOPH SWALLOW FUNCTION Routine 06/21/2019 W/CINE VIDEO 12:30 PM POWER CHECKER REPORT OF PROCEDURE - 06/21/2019 ENDOSCOPY URL 9:20 AM POWER CHECKER TISSUE EXAM AP Routine 06/21/2019 8:37 AM POWER CHECKER UPPER 06/21/2019 Dysphagia, unspecif ied ENDOSCOPY,DILATATION 8:00 AM POWER CHECKER type UPPER ENDOSCOPY,BIOPSY 06/21/2019 Dysphagia, uns pecified 8:00 AM POWER CHECKER type CBC W/PLT COUNT & AUTO Routine 06/21/2019 DIFFERENTIAL 4:34 AM POWER CHECKER TSH/FREE T4 IF INDICATED Routine 06/21/2019 4:34 AM POWER CHECKER HEMOGLOBIN A1C Routine 06/21/2019 4:34 AM POWER CHECKER MAGNESIUM Routine 06/21/2019 4:34 AM POWER CHECKER CBC W/PLT COUNT & AUTO Routine 06/21/2019 DIFFERENTIAL 4:34 AM POWER CHECKER PHOSPHORUS Routine 06/21/2019 4:34 AM POWER CHECKER CALCIUM, IONIZED Routine 06/21/2019 4:34 AM POWER CHECKER BASIC METABOLIC PANEL (7) Routine 06/21/2019 4:34 AM POWER CHECKER BASIC METABOLIC PANEL (7) Routine 06/20/2019 4:07 AM POWER CHECKER after 02/25/2019 Results * RHYTHM STRIP - SCAN (06/22/2019 5:37 PM POWER CHECKER) Narrative Performed At This result has an attachment that is n ot available. * FL esoph swallow funct with cine video (06/21/2019 12:30 PM POWER CHECKER) Specimen Narrative Performed At FINAL REPORT [facility] Modified barium swallow exam with speec h pathology service CLINICAL HISTORY: dysphagia IMPRESSION: Please see the speech pathology service report for details. Barium contrast of multiple consistenci es is given to the patient to swallow. Fluoroscopic observation is pe rformed during swallowing. There is no aspiration. Fluoro time:Three minutes Number of images: 19 Signed: Michael Rivero MD Report Verified Date/Time: 0 17:22:41 Reading Location: [address] Co nsult Reading Room Procedure Note Interface, External Ris In - 06/21/2019 5:24 PM POWER CHECKER FINAL REPORT Modified barium swallow exam with speech pathology service CLINICAL HISTORY: dysphagia IMPRESSION: Please see the speech pathology service report for details. Barium contrast of multiple consistencies is given to the patient to swallow. Fluoroscopic observation is performed during swallowing. There is no aspiration. Fluoro time: Three minutes Number of images: 19 Signed: Michael Rivero MD Report Verified Date/Time: 06/21/2019 17:22:41 Reading Location: [address] Consult Reading Room Performing Organization Address City/State/Zipcode Ph one Number GE RIS * REPORT OF PROCEDURE - ENDOSCOPY URL (06/21/2019 9:20 AM POWER CHECKER) Narrative Performed At This result has an attachment that is n ot available. * Tissue Exam (06/21/2019 8:37 AM POWER CHECKER) Case Report Surgical Pathology [facility] TH Report [facility] Case: [id number] Authorizing Provider:Jaycob Guerrero MD Collected: 06/21/2019 0837 Ordering Location: [address] Received: 06/21/2019 1510 Service Pathologist: Susan Shah MD Specimens: A) - Stomach, BX B) - Distal Esophagus, BX C) - Proximal Esophagus, BX DIAGNOSIS A. STOMACH, RANDOM BIOPSIES: [facility] - MILD CHRONIC INACTIVE [facility] GASTRITIS - NEGATIVE FOR HELICOBACTER PYLORI ORGANISMS BY WARTHIN STARRY STAIN - NEGATIVE FOR INTESTINAL METAPLASIA, DYSPLASIA, MALIGNANCY B. ESOPHAGUS. DISTAL, BIOPSY: - SQUAMOUS MUCOSA WITH NO SIGNIFICANT DIAGNOSTIC ABNORMALITY C. ESOPHAGUS, PROXIMAL, BIOPSY: - SQUAMOUS MUCOSA WITH NO SIGNIFICANT DIAGNOSTIC ABNORMALITY Signing Pathologist Direct Phone Line: [phone] CPT Code(s) 59180O9 [facility] [address] [facility] CLINICAL HISTORY Dysphagia [facility] SPECIMEN SOURCE A. Stomach biopsy. B and C. [facility] Esophagus biopsy [facility] GROSS DESCRIPTION Part A received in formalin [facility] labeled with the patient's [facility] name, accession number and "stomach biopsy" are five pieces of patterson-white mucosal tissue measuring 0.6 x 0.6 x 0.2 cm in aggregate. The specimen is submitted in toto in cassette A1. Part B received in formalin labeled with the patient's name, accession number and "distal esophagus biopsy" are three pieces of white mucosal tissue each measuring 0.3 x 0.2 x 0.2 cm. The specimen is submitted in toto in cassette B1. Part C received in formalin labeled with the patient's name, accession number and "proximal esophagus biopsy" is a 0.4 x 0.2 x 0.2 cm piece of white mucosal tissue. The specimen is submitted in toto in cassette C1. NW/ew MICROSCOPIC DESCRIPTION Performed. [facility] SPECIAL STUDIES The interpretation of this [facility] case included the use of [facility] immunohistochemistry or special stains. Control Slides Examined: In-house known positive controls were evaluated along with the test tissue. These control slides run alongside of the patients sample show appropriate staining. Internal positive and negative controls when available are evaluated Immunohistochemistry technical testing was performed at [facility], Pathology Laboratory where it was developed and its performance characteristics were determined. It has not been cleared or approved by the U.S. Food and Drug Administration. The FDA has determined that such clearance or approval is not necessary. The test is used for clinical purposes. It should not be regarded as investigational or for research. This laboratory is certified under the Clinical Laboratory Improvement Amendments of 1988 (CLIA-88) as qualified to perform high complexity clinical laboratory testing. Specimen Tissue Tissue - Distal Esophagus Tissue - Proximal Esophagus Performing Organization Address [facility] Ph one [place] [phone] [place] [address] * TSH/Free T4 If Indicated (06/21/2019 4:34 AM POWER CHECKER) TSH 0.89 0.35 - 4.94 uIU/mL [facility] Specimen Blood Narrative Performed At Feed Mill Operator JOSELYN - JOLIE Myles [facility] Performing Organization Address [facility] Ph one Number [place] [phone] [place] [address] * Calcium, Ionized (06/21/2019 4:34 AM POWER CHECKER) Calcium, Ion 1.16 1.12 - 1.27 mmol/L [facility] pH, Blood 7.32 [facility] Specimen Blood Performing Organization Address [facility] one Number [place] [address] 0 [phone] [place] [address] * CBC with platelet count + automated diff (06/21/2019 4:34 AM POWER CHECKER) WBC 5.4 3.5 - 10.5 K/L [facility] RBC 3.91 (L) 4.63 - 6.08 M/L [facility] Hemoglobin 12.3 (L) 13.7 - 17.5 GM/DL [facility] Hematocrit 36.7 (L) 40.1 - 51.0 % [facility] MCV 93.9 (H) 79.0 - 92.2 fL [facility] MCH 31.5 25.7 - 32.2 pg [facility] MCHC 33.5 32.3 - 36.5 GM/DL [facility] RDW 13.4 11.6 - 14.4 % [facility] Platelets 243 150 - 450 K/CU MM [facility] MPV 9.4 9.4 - 12.4 fL [facility] nRBC 0 0 - 0 /100 WBC [facility] % Neutros 45 % [facility] % Lymphs 43 % [facility] % Monos 9 % [facility] % Eos 3 % [facility] % Baso 1 % [facility] # Neutros 2.42 1.78 - 5.38 K/L [facility] # Lymphs 2.33 1.32 - 3.57 K/L [facility] # Monos 0.46 0.30 - 0.82 K/L [facility] # Eos 0.15 0.04 - 0.54 K/L [facility] # Baso 0.04 0.01 - 0.08 K/L [facility] Immature 0 0 - 1 % [facility] Granulocytes-Relative [facility] Specimen Blood Performing Organization Address City/State/Zipcode Ph one Number [facility] [address] [facility] [place] [address] [facility] * Phosphorus (06/21/2019 4:34 AM POWER CHECKER) Phosphorus 3.1 2.3 - 4.7 mg/dL [facility] Specimen Blood Narrative Performed At Feed Mill Operator ID - JOLIE M [facility] Performing Organization Address City/[facility] Ph one Number [address] 0 [phone] [place] [address] * Magnesium (06/21/2019 4:34 AM POWER CHECKER) Magnesium 2.0 1.6 - 2.6 mg/dL [facility] Specimen Blood Narrative Performed At Feed Mill Operator ID - JOLIE M [facility] Performing Organization Address City/State/[facility] Ph one Number [address] 0 [phone] [place] [address] * Hemoglobin A1c (06/21/2019 4:34 AM POWER CHECKER) Hemoglobin A1C 5.4 4.3 - 6.1 % [facility] Specimen Blood Narrative Performed At Feed Mill Operator ID - [id number] [facility] Performing Organization Address City/[facility] Ph one Number [address] [phone] [place] [address] * Basic Metabolic Panel (06/21/2019 4:34 AM POWER CHECKER) Only the most recent of 2 results within the time period is included. Sodium 141 136 - 145 meq/L [facility] Potassium 4.3 3.5 - 5.1 meq/L [facility] Chloride 111 (H) 98 - 107 meq/L [facility] CO2 28 22 - 29 meq/L [facility] BUN 10 7 - 21 mg/dL [facility] Creatinine 0.83 0.57 - 1.25 mg/dL [facility] Glucose 98 70 - 105 mg/dL [facility] Calcium 8.5 8.4 - 10.2 mg/dL [facility] EGFR 102Comment: ESTIMATED GFR IS mL/min/1.73 sq m [facility] NOT ACCURATE CREATININE [facility] CLEARANCE IN PREDICTING GLOMERULAR FILTRATION RATE. ESTIMATED GFR IS NOT APPLICABLE FOR DIALYSIS PATIENTS. Specimen Blood Narrative Performed At Feed Mill Operator ID - JOLIE M [facility] Performing Organization Address City/State/Zipcode Ph one Number [facility] [address] [place] [address] [address] [facility] after 02/25/2019 Insurance Payer Benefit Subscriber ID Type Phone Address Plan / Group BLUE CROSS/BLUE SHIELD BCBS HMO xxxxxxxxxxxx HMO/POS [phone] [address] [place] [address] [place] [phone] Advance Directives For more information, please contact: [address] [address] Date Inactivated Comments Code Status Date Activated 06/21/2019 5:55 PM Full Code 06/19/2019 7:43 PM This code status was determined by: Patient
--- OUTSIDE RECORDS SUMMARY | 2020-02-26 15:20 | XMS REPORT | Continuity of Care Document ---
Author Author [facility] t Organization [facility] Address [address] [place] [address] [address] [place] [address] Phone Unavailable Care Team Providers Care Forest Fire Management Officer Name Role Phone MARISELA CAPELLAN, ASHLEE PCP ROSE MARY, TREY Attphys Unavailable Rose Mary CAPELLAN, Trey Attphys [phone] Froy CAPELLAN, Jessica Phelan Attphys [phone] Bony CAPELLAN, Ever Attphys Norah CAPELLAN, Metz Veeral Attphys [phone] Cesar CAPELLAN, Miguel Angel Suneal Attphys Nino DRUMMOND EDWARD Attphys Unavailable MARISELA, DILIPKUMAR Attphys Unavailable JESSICA JAY Admphys Unavailable ANTONIO, DILCAMERON Admphys Unavailable Payers Payer Name Policy Type Policy Number Effective Date Expiration Date S Formerly [facility]/BLUE SHIELDBCBS HMO BLUE/ESSE NTIALSxxxxxxxxxxxxO/[id number], [place] [address] xxxxxxxxxxxx [facility] [id number] 2019 00:00:00 [facility] Aetna Pos [id number] 2014 00:00:00 [facility] Problems Condition Name Condition Details Condition Category Status Onset Date Resolution Date Last Treatment Date Treating Clinician Comments Source Sjogren's disease Sjogren's disease Disease Active 2019-06-20 00:00:00 [facility] Dysphagia Dysphagia Disease Active 2019-06-19 00:00:00 [facility] Pyloric obstruction Gastric outlet obstruction Problem Active [facility] Small bowel obstruction SBO (small bowel obstruction) Problem Active [facility] 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 [facility] Allergies, Adverse Reactions, Alerts Allergy Name Allergy Type Status Severity Reaction(s) Onset Date Inacti ve Date Treating Clinician Comments Source Hydromorphone Propensity to adverse reactions Active H autumn 2019-06-19 00:00:00 [facility] Hydromorphone Allergy to Substance Active Mild ITCHING/REDN ESS 2017-06-22 00:00:00 [facility] Social History Social Habit Start Date Stop Date Quantity Comments Source History SDOH Alcohol Std Drinks [facility] History SDOH Alcohol Binge [facility] Sex Assigned At [facility] Cigarettes smoked current (pack per day) - Reported 00:00:00 2019-06-21 00:00:00 [facility] History SDOH Alcohol Frequency 2019-06-21 00:00:00 2019-06-21 00:00:0 0 1 [facility] Smoking Status Start Date Stop Date Source Current every day smoker 2019-06-21 00:00:00 [facility] Medications Ordered Medication Name Filled Medication Name Start Date Stop Da te Current Medication? Ordering Clinician Indication Dosage Frequency Signature (SIG) Comments Components Source pantoprazole (PROTONIX) 40 MG tablet 2019-06-19 19:06:35 Ye s 40mg QD Take 40 mg by mouth daily. [facility] cyclobenzaprine (FLEXERIL) 5 MG tablet 2019-06-19 19:06:35 Yes 5mg Q.5D Take 5 mg by mouth 2 (two) times daily. [facility] HYDROcodone-acetaminophen (NORCO 10-325) 10-325 mg per table t 2019-06-19 19:06:35 Yes 1{tbl} Take 1 tablet by mouth once. [facility] Cyclobenzaprine Hcl (Flexeril) 5 Mg Tablet Cyclobenzap rine Hcl (Flexeril) 5 Mg Tablet Yes 5 Twice A Day [facility] Hydrocodone Bit/Acetaminophen (Hydrocodon-Acetaminophn 10-325) 1 Each Tablet Hydrocodone Bit/Acetaminophen (Hydrocodon-Acetaminophn 10-325) 1 Each Tablet Yes 1 Daily as needed for Pain [facility] Pantoprazole Sodium (Protonix) 40 Mg Tablet. Pantopr azole Sodium (Protonix) 40 Mg Tablet. Yes 40 Daily [facility] Nitazoxanide (Alinia) 500 Mg Tablet, 500 Mg Oral Nitaz oxanide (Alinia) 500 Mg Tablet, 500 Mg Oral 2017-10-08 00:00:00 No 500 Ever y 12 Hours [facility] Ondansetron (Zofran Odt) 4 Mg Tab.rapdis, 4 Mg Oral On dansetron (Zofran Odt) 4 Mg Tab.rapdis, 4 Mg Oral 2017-10-08 00:00:00 No 4 Every 6 Hours as needed for Nausea And Vomiting [facility] Pregabalin (Lyrica) 75 Mg Cap, 75 Mg Oral Pregabalin ( Lyrica) 75 Mg Cap, 75 Mg Oral 2017-10-08 00:00:00 No 75 Three Times A Day [facility] Vital Signs Vital Name Observation Time Observation Value Comments Source Systolic blood pressure 2019-06-21 10:17:00 100 mm[Hg] [facility] Diastolic blood pressure 2019-06-21 10:17:00 55 mm[Hg] [facility] Heart rate 2019-06-21 10:17:00 62 /min [facility] Body temperature 2019-06-21 10:17:00 36.11 Bailey [facility] Respiratory rate 2019-06-21 10:17:00 16 /min [facility] Oxygen saturation in Arterial blood by Pulse oximetry 06-21 10:17:00 99 /[facility] weight Measured 2019-06-20 08:00:00 77.9 kg [facility] BMI 2019-06-20 08:00:00 20.90 kg/m2 [facility] Body height 2019-06-19 20:00:00 193 cm [facility] Procedures Procedure Date / Time Performed Performing Clinician Sour e RHYTHM STRIP - SCAN 2019-06-22 17:37:56 Provider, Shelton bullard [facility] XR ESOPH SWALLOW FUNCTION W/CINE VIDEO 2019-06-21 12:30:00 Adele carrasco [facility] REPORT OF PROCEDURE - ENDOSCOPY URL 2019-06-21 09:20:12 Cesar [facility] TISSUE EXAM 2019-06-21 08:37:00 Cesar [facility] UPPER ENDOSCOPY,BIOPSY 2019-06-21 08:00:00 Cesar [facility] UPPER ENDOSCOPY,DILATATION 2019-06-21 08:00:00 Jaycob Guerrero umkamala [facility] BASIC METABOLIC PANEL (7) 2019-06-21 04:34:00 Cricket Clemente [facility] CALCIUM, IONIZED 2019-06-21 04:34:00 Bony [facility] PHOSPHORUS 2019-06-21 04:34:00 Bony [facility] MAGNESIUM 2019-06-21 04:34:00 Bony [facility] HEMOGLOBIN A1C 2019-06-21 04:34:00 Bony [facility] TSH/FREE T4 IF INDICATED 2019-06-21 04:34:00 Bony [facility] CBC W/PLT COUNT & AUTO DIFFERENTIAL 2019-06-21 04:34:00 Jeison zapata [facility] BASIC METABOLIC PANEL (7) 2019-06-20 04:07:00 Cricket Clemente [facility] Encounters Start Date/Time End Date/Time Encounter Type Admission Type Att[facility] Clinicians Care Facility Care Department Encounter ID Source 2019-06-19 15:12:00 2019-06-19 17:41:00 Departed Emergency Room 1 RICHI DRUMMOND [facility] [id number] [facility] 2017-10-11 13:09:00 2017-10-19 13:30:00 Discharged Inpatient [facility] [id number] [facility] 2017-07-30 23:39:00 2017-08-05 09:30:00 Discharged Inpatient ER ANTONIO, [facility] [id number] [facility] 2017-06-15 13:20:00 2017-07-02 14:15:00 Discharged Inpatient ER ANTONIO, [facility] [id number] [facility] 2017-04-23 02:51:00 2017-04-27 10:20:00 Discharged Inpatient ER MARISELA [facility] [id number] [facility] 2016-10-02 09:37:00 2016-10-02 09:37:00 Registered Clinic [facility] [id number] [facility] Results Test Description Test Time Test Comments Results Result Comments Source Tissue Exam 2019-06-27 10:57:00 Test Item Case Report (test code = 104) Surgical Pathology Repor t Case: [id number] Authorizing Provider: Jaycob Guerrero MD Collected: 06/21/2019 0837 Ordering Location: [address] Received: 06/21/2019 3676 Service Pathologist: Susan Shah MD Specimens: A) - Stomach, BX B) - Distal Esophagus, BX C) - Proximal Esophagus, BX DIAGNOSIS (test code = 3220) [file] [id number] CPT Code(s) (test code = 3357) c8zriHUmFFYtbDQkDeHjEDPsJGThq6qcQGYliCYaUlAcLxMkGaErElgqzDSyZMVnSjHhw7ozi611uIGy z1plJIBcGmA8aJLdAYTaqXYbK742g9bdf4hkktXgeVZ8VAPjCAC0XKwxghNfhgN5PXlqaXGpJfO9ZRut itUmTDyrtwPsycPrNwx7WSKcE324PEU1oNarm2sxTK R0JNNvSQAmWkYvZj3dlVCfO662AAXuWGXWBKQofDx5TRMawhSgshPorGUJg245Z691t5jyDUFqerPhdF bMenyww1jwZ383UWMppPBexdKjZzHkFBXwcBAhpHF9BCWpGT2mqbxsKtCnPP1ddlzuLzAjXI5rrcj1Tn NiUX7kznthKuSeBLccOHQwdenaRJQgk2QlamimHD2p C5Otd2G5lR4cjLOeOSGxcSCeMpFyFXSmvd2soMQkYWicz5MuBBK9bdU7eHPvlYKlAJDjME78Uaaev7Jh ZcznBWH8CLHlxnRiz2Mmu4gcFmMsrrYgH6opQ3VhQDXnZQUwADAnUvMhfdZfy9Rcu5ElgWRlcCr3z4np ELIiVFGfiMbhy7mpCGJ8RBHhA8C1dXPrh2rsZHmsOE TgaQL4ewjdXKdbKPEbvtD7hhncHEviIRAqoTF3qyhrYDipSNSlGlC2hzxmLJbgTQDcKAZ1IFbvu584LY W8GExnZraaYOhdERLypzYcnoCgkKtiVGPoPQJjWKayLLKnELyyOKUsTNBaBnYckSyfhUucpZ2qVyFnAm PcFGwiLD2bIXElT2xjrAHvLNEkDVWfI9xdVjNatQ2v xMvtCJkhfoOfUDy8GdE1HZFpiZNqADl0MoFgBWHjvd2= CLINICAL HISTORY (test code = 3356) t4hzhZEiABMurUXrWhVbKIKjBXHuq5ucFVStoEHgDbYkZmKyBaLeIcxraEBcDBNsKqTfp9ipz151fEFg i8vvGTDtQgT0yRGvRUHjoEKxQ542b4ewe8edjcRtxSQ4BKJzLFR3HZwnzkYimiF4MVtnrPQuNsX6ZRzf whIeHWxpeyCzrxEjGtn5FFQjU152AFI2mYvoz1niOQ T2XSXcKMJpPtTsDt4ivEMmI249YWWiABUXTASioQf7BDMickPfzhWjpLWVi345I605s3ekICNlujEbaT oWbkeni2vuC354XOAufDYfgpPyKdUaVDZwvNZrfDP7EJGqHR1czrtnBwVoDY3askriXoVsHJ6zaqj2Cv VtUP9tlfxrYeJeALudQKUbdgyvSXGcp5ItrhapVS3a N3Eqz3O6oF7crDLgKNYkxXIjAtYfYOJpmo2huOLwWMpvj8KgMQY8wrP1tTJpwKLvQUKdWA94Wzqtu8En DdeyFVY8UYMllyStc2Avr1eiPsThgxCbM9qyK0YpMJVvACUqKSHhPzOtofAhe7Szd7BuvVTlyWd6r8gm ZZVcHFXiiXbwi7laZBY1XOZeG5I4nFEvp1skJYyqFH PrnYC8yufcNEpiLBVvmeV3xfteGWaaCUKvfCJ1yvjfCOkkAAQlRpT9eeqtWVcoOABmGAN4DMgdn552LA O3QAqlDpnwCJjmJNKbuxTdskUaeZriTBLhPJStSApaRZFiMLvlEXMwIAZoXlFgqTurmCvqzK9rSiKjDb GrFXstXO6hKVFjC4tqoGNzHZXqUMRsI7iwErSgbQ4cuHxlXIfmhzQgEML7x9DgOJkqUMPzsKZlsA== SPECIMEN SOURCE (test code = 3377) g5rpfBVvTGTgoDPfIsSvNPCgQXMlr4vqHNIdyEPdMoNlWaZpQdIdUgbznWEoZZFwPzJlm2axj589xMEz r5qtSANpIcJ2dASgTZCxtGEqW296s3zua9xqggVaeVW8XFVeOLD8QOajctUxefB2ROoxtGXcJqY1OVdd bhOnJTwoquHwnhWdOuq3RUTkV551CRI0pChyz2geUL V0KUHuVVYuTpPhAa3vwCUcR362WBFrFJOMNMIoeBt0KLGwjaLjypYulJOPj611W255o6wvRBWiesAuoZ jGdmhti6xvS449UXKhkIPpzjIuUfUoYIGgpRSuxJK6EXWiRL2uvnzxUvDbRN0dgcmhCxIfKN7wmjy6Jo VsXD3qssibUwRuYMdmBVCgwsatXXAqy2TknkusAS0n F3Qfv0J4pV0vpCWlSXTpoBWbTfSySNFyeo1omPCkNGnad3PfWQN4zwV8dPSrwRGbQQKrLH49Ttlxd5Co DhkbATM6KMExdeGiy7Huu5saKkFcmzGcA6waF8ZcFHGyIVWfFJXsYfWnwkBgp1Umf0IuyZBagHz7f5dg AEMjFFGkxVhrc9ntTMX8HSZvZ0S1oGTog1uuVMdcDX KtyHO2vgsoQIlvECSobqL5tidmPGesZPPwuPI0tptqMMrpDWTwNqL5xtqsKCfqRJDuFUE8LFdsp114HI P3VYkrUyefYVhdUYCgiqDfnuBcpVoqYBGlGOTpVLxfHVHtASapFYSeBBKqQrMyhYhtbBbvtB2vXnFiPj FdLTgmFN9qOIVyL5yhiSQdBJQkJBDbA8krWhDxnO7q eEohPFowizGuSGWyVWK6p85wM3duDdjjwXM2CjCRKQNdMGLWFpAQl17ymCQgoXBlJzmgbFY3ARceXRU0 GROSS DESCRIPTION (test code = 3366) x4shxXTmONVxmDLvUxFvEAVtSVThi1nqUGVcoVQbIhYjDlVrOuXpYlhszAIqLVUoHyXdz6tox588dDBq y6qqWGWfJcI4oBGgEOKypZUbJ991z4vws3koihRfhIQ0BICxYTQ7EYqighRcmyR2HVylwTQrPjD0KFgz vkXqZOrcpkToryBlXcx5YEKjO410EOV9uNobr8dsXP V6YHHpEHGbTbRvHu5jdSBoI412QSRiPUFKKXTwbUv2DWLnixImgvRwsODKj982O514b4otZAVilbDsxB rFqphau0oqC425GJDqiKCmssWaBzWxNQCilNNxoPF8AUEcJS2wrbtoOeTvCU0xxhhdInHtGB6tigu3Um SaLH6yferwXdQhYDlcZGSmwolvTHPpp6ZgonvpJF2z A0Arc6I6dC1vuSPmZVEeeZVlDfUjYBRrfa8gbFQbYSwuz6VyKXF7vsR1rDMnkDZbVGXhMD17Hqmga6Yr DdpbBZN6KILxrnFbv3Eco7nlArShczEfY0xcB6FgLJFgWKCzQWHiGjRgjsOfk5Tng3RcwUYbpJf7p7ud BEArKTUcnWafl3txCQR8PEJfE9J0vQSwv4puOMklCQ VeeQN7dtykBWnvBZYxjaN5hifkOSgsIZPvtQR3woiyDGnsQURtXmU0sdbaCVhbRZIrKAU6YUpft900DC R8SHgxBjtnQDwlFDNaiqOswwQdvXauAEObMNVpQHflDKLvXXagSLAfWRPsUeKtlXnodDvxiV0lTuYlOg EpTXgaLK7jGNDdR6ushGPeCZZkDGFqU1ouDgNhoP7u uKdpRFvnbsCsONCruuXcMNRuMMIavPXpVZCeztOxg1JtLRbendJlEJRbyAOvVUisbYoubUumNBDnmKif mpZbmqCiTP3aURJzP6Jws7Hpa44pufRmAvRzXJAdLLLvy2MagTElaVMvkT4id8jyLFZeRJEoySPyAGPe YUPaswQoRiV4JB0lj6cfiCHnjTDmz1QwkJR1dQGdfJ BwgFYdf1WnnO4oMWRiElI8SAJwWiW7FKZySwEfrEHthmRhX6pnTVgusYVsVRYnZSTlmXYdtG8fyeXcff PqeNPtvLT0GSPzrG8grA56phNhuqMzVEHqSKD3GSZEZJ0mkZOwQBNaylJYKZV1DXDnkfYdPJe6MUGzvS 4wOs9kaNNooI7ooJZyTDhxMVK0bZNbGVYoYWAoOCWn XD25U9OtuvJyISogHJXlKVZmvX2tKK71nQFdccNaceHvNyTes0BijJSkc55raESszIDaEwsniCF3BaOk wsLphBgbKENfvXnlI5JxYU1oPTjavQXyNF32I52lKRudtIovh9SfZAGiN1tisAUsz1DtzN5xBDDjRgX2 ZHGaStZ1LLDoAiXllV9wFMczYSXnBYIzlVBpBLvuCR X3Av2pzNMsFWFqjuW9l5FqUGrwTDKpv8ZjvQHkZJEtWerlFURldPHzMIItmoMtEeVqHHMasAMnPKAmfv Wqc3TjBYslhtElXFFhbAVsYRhyoLiaoJxtFMInpIrgjuDjqpUoIN3qPMSdI6Kum7Uql23eypAbEgUhYD YaWWGvoCHqvKinCUkaSSGheNegD6BiIXXyz2IklGDx oJFdKQEbGfCqfOTfQlTflFQeLoRtJ85ofIwnY1Fta6Miy1uexMRakGHtc7PywQP9tXXihUSaGQIsIVGq zWIjuU3olwSowvJuwOOktQE9KLOveQ6udE63etKsseXfQHSmQYZ9KHJMQT2fFisdWNzxMFSbng0= MICROSCOPIC DESCRIPTION (test code = 3371) n5fdtBZqBTSxaJUcPlRbNBSqQSQyf4uvIIXdkYJcKmYvKnQfGoBcIrbepIJeTEAxQaIss0dsn660xIHv u3ccKGAkNdN3nNWvRXIkjVDyN275DYPdSVpol6tzl2FpLUXrzIOvq6K2XWOZhtjijAv8vYhaH82xp9Y0 GhebW1mfZUGnNHxwIBLvJGqydQRqTBC5QLKxTLS9XG zudaFdzjT7GJcsnBXuYeF1FLn2n9fqyHfvGNAuFWO9o0upIKprpvQaFG6pfz7zqTu8o5zwkjBtRKChQO MysHJDKVIhW2ToaZbuQe1xfXh6wQakVjlrOFV4Ryu0KW6dbx63vxx1aBofVGRzrjziTfS0ZFreVMCqgi itPVq8GRozLLOadWduWThhMPDjdtwjJNzdEOBmpIcj EMyaMIXpYjvnQXooXKCtFKH5TKxfg942TXI5HAzbe7eab0vueLDqJdl4PBRqWmRqQggyYHptw1Sjo8gk QCOfjw7dJPU6cFPvcXxfh9E6bIFuSCHcoTPzkbPuQARjbs03cDVeyIRoyCOeca5nkuXmaKZlzUMzMIC9 oWTpwuYfNIKddZAoFLRkVV7awWTpUVYxeY6vtfcdRG HcGfWbywgwIGQjvVciitZmRi7zwTgpFOU1VOgyG4vdmI4kWsC1PCrlC6nrmU9vNAn4PGfipSA7ZOGwfE 6vFH4jspgzh0rqCjOlLZ4enxxnz0hfMnRpKE1znsu6c3koQxDiZD7qrmhcw1hdVwCuMZqnUIDltrzsGT Bhj0EersykMLUup3BqD6TzdWflJ37cpRtfO71wHYKb hWfjuN0wnWutoS0wFqAqMnAwIVqpoHkkwUVbbkkeEFbxxyNrQYVyEWipCKZfZJAjAhDvGSRqWb6caGSm LlxwYXJccGFyfQ== SPECIAL STUDIES (test code = 3376) [file] XubXHfEqPpHkWevEpkzCkhOzavPyOkXBTbPPgyO4wxPyJdGnPdWfdcUVX8aC== [id number] 10:57:00Surgical Pathology Report Case: [id number] Authorizing Provider: Jaycob Guerrero MD Collected: 06/21/2019 0837 Ordering Location: [address] Received: 06/21/2019 1510 Service Pathologist: Susan Shah MD Specimens: A) - Stomach, BX B) - Distal Esophagus, BX C) - Proximal Esophagus, BX A. STOMACH, RANDOM BIOPSIES: - MILD CHRONIC INACTIVE GASTRITIS - NEGATIVE FOR HELICOBACTER PYLORI ORGANISMS BY WARTHIN STARRY STAIN - NEGATIVE FOR INTESTINAL METAPLASIA, DYS PLASIA, MALIGNANCYB. ESOPHAGUS. DISTAL, BIOPSY: - SQUAMOUS MUCOSA WITH NO SIGNI FICANT DIAGNOSTIC ABNORMALITYC. ESOPHAGUS, PROXIMAL, BIOPSY: - SQUAMOUS MUCOSA WITH NO SIGNIFICANT DIAGNOSTIC ABNORMALITY Signing Pathologist Direct Phone Line: [phone] signed by Susan Shah MD on 0 at 10:57 [id number] A. Stomach biopsy. B and C. Esophagus biopsy Part A received in formalin labeled with the patient's name, accession number an d "stomach biopsy" are five pieces of patterson-white mucosal tissue measuring 0.6 x 0 .6 x 0.2 cm in aggregate. The specimen is submitted in toto in cassette A1.Part B received in formalin labeled with the patient's name, accession number and "di stal esophagus biopsy" are three pieces of white mucosal tissue each measuring 0 .3 x 0.2 x 0.2 cm. The specimen is submitted in toto in cassette B1.Part C recei andrey in formalin labeled with the patient's name, accession number and "proximal esophagus biopsy" is a 0.4 x 0.2 x 0.2 cm piece of white mucosal tissue. The spe cimen is submitted in toto in cassette C1. NW/ew Performed.The interpretation of this case included the use of immunohistochemistry or special stains.Control Sl ides Examined: In-house known positive controls were evaluated along with the t est tissue. These control slides run alongside of the patients sample show appr opriate staining. Internal positive and negative controls when available are noe cormier Immunohistochemistry technical testing was performed at [facility], Pathology Laboratory where it was developed and its performance characteristics were determined. It has not been cleared or approved by the U.S . Food and Drug Administration. The FDA has determined that such clearance or ap proval is not necessary. The test is used for clinical purposes. It should not b e regarded as investigational or for research. This laboratory is certified unde r the Clinical Laboratory Improvement Amendments of 1988 (CLIA-88) as qualified to perform high complexity clinical laboratory testing.FL, ESOPH, SWALLOW FUNCTION, WITH CINE OR [id number] 17:22:00Reason for exam:->dysphagiaFINAL REPORT Modified barium swallow exam with speech pa thology service CLINICAL HISTORY: dysphagia IMPRESSION: Please see the speech pa thology service report for details. Barium contrast of multiple consistencies is given to the patient to swallow. Fluoroscopic observation is performed during s wallowing. There is no aspiration. Fluoro time: Three minutes Number of images: 19 Signed: Michael Rivero MDReport Verified Date/Time: 06/21/2019 17:22:41 Reading L ocation: [facility] B1 C013X Ortho Consult Reading Room esoph swallow funct with cine video 2019-06-21 17:22:00Interface, External Ris In - 06/21/2019 5:24 PM CSTFINAL REPORT Modified barium swallow exam with speech pathology service CLINICAL HISTORY: dysphagia IMPRESSION: Please see the speech pathology service report for details. Barium contrast of multiple consistencies is given to the patient to swallow. Fluoroscopic observation is performed during swallowing. There is no aspiration. Fluoro time: Three minutes Number of images: 19 Signed: Michael Riveroeport Verified Date/Time: 06/21/2019 17:22:41 Reading Location: [address] Ortho Consult Reading Room [facility] Hemoglobin [id number] 08:35:00* Test Item Value Reference Range Interpretation Comments Hemoglobin A1C (test code = 4548-4) 5.4 % 4.3-6.1 CHERY (test code = CHERY) Adoption Agent ID - [id number] Lab Interpretation (test code = 87413-9) Normal [facility] [id number] 08:35:00* Test Item Value Reference Range Interpretation Comments HEMOGLOBIN A1C (BEAKER) (test code = 368) 5.4 % 4.3-6.1 Adoption Agent ID - [id number]/Free T4 If [id number] 06:32:00* Test Item Value Reference Range Interpretation Comments TSH (test code = 24233-8) 0.89 0.35- 4.94 uIU/mL CHERY (test code = CHERY) Adoption Agent ID - JOLIE M Lab Interpretation (test code = 74094-8) Normal [facility] T4 IF [id number] 06:32:00* Test Item Value Reference Range Interpretation Comments THYROID STIMULATING HORMONE (BEAKER) (test code = 772) 0.89 uIU/mL 0.35-4.94 Adoption Agent ID - JOLIE MBasic Metabolic [id number] 05:40:00* Test Item Value Reference Range Interpretation Comments Sodium (test code = 2951-2) 141 meq/L 136-145 Potassium (test code = 2823-3) 4.3 meq/L 3.5-5.1 Chloride (test code = 2075-0) 111 meq/L 98-107 H CO2 (test code = 8-9) 28 meq/L 22-29 BUN (test code = 3094-0) 10 mg/dL 7-21 Creatinine (test code = 2160-0) 0.83 mg/dL 0.57-1.25 Glucose (test code = 2345-7) 98 mg/dL 70-105 Calcium (test code = 60236-5) 8.5 mg/dL 8.4-10.2 EGFR (test code = 22288-7) 102 mL/min/1.73 sq m ESTIMATED GFR IS NOT ACCURATE CREATININE CLEARANCE IN PREDICTING GLOMERULAR FILTRATION RATE. ESTIMATED GFR IS NOT APPLICABLE FOR DIALYSIS PATIENTS. CHERY (test code = CHERY) Adoption Agent ID - JOLIE Lab Interpretation (test code = 23334-1) Abnormal [facility] 05:40:00* Test Item Value Reference Range Interpretation Comments Magnesium (test code = 81962-4) 2.0 mg/dL 1.6-2.6 CHERY (test code = CHERY) Adoption Agent ID - [facility] Lab Interpretation (test code = 98532-9) Normal [facility] 05:40:00* Test Item Value Reference Range Interpretation Comments Phosphorus (test code = 2777-1) 3.1 mg/dL 2.3-4.7 CHERY (test code = CHERY) Adoption Agent ID - JOLIE Lab Interpretation (test code = 59962-1) [facility]* Test Item Value Reference Range Interpretation Comments PHOSPHORUS (BEAKER) (test code = 604) 3.1 mg/dL 2.3-4.7 Adoption Agent ID - JOLIE [id number] 05:40:00* Test Item Value Reference Range Interpretation Comments MAGNESIUM (BEAKER) (test code = 627) 2.0 mg/dL 1.6-2.6 Adoption Agent ID - JOLIE MBASIC METABOLIC [id number] 05:40:00* Test Item Value Reference Range Interpretation Comments SODIUM (BEAKER) (test code = 381) 141 meq/L 136-145 POTASSIUM (BEAKER) (test code = 379) 4.3 meq/L 3.5-5.1 CHLORIDE (BEAKER) (test code = 382) 111 meq/L 98-107 H CO2 (BEAKER) (test code = 355) 28 meq/L 22-29 BLOOD UREA NITROGEN (BEAKER) (test code = 354) 10 mg/dL 7-21 CREATININE (BEAKER) (test code = 358) 0.83 mg/dL 0.57-1.25 GLUCOSE RANDOM (BEAKER) (test code = 652) 98 mg/dL 70-105 CALCIUM (BEAKER) (test code = 697) 8.5 mg/dL 8.4-10.2 EGFR (BEAKER) (test code = 1092) 102 mL/min/1.73 sq m ESTIMATED GFR IS NOT ACCURATE CREATININE CLEARANCE IN PREDICTING GLOMERULAR FILTRATION RATE. ESTIMATED GFR IS NOT APPLICABLE FOR DIALYSIS PATIENTS. Adoption Agent ID - JOLIE MCalcium, [id number] 05:10:00* Test Item Value Reference Range Interpretation Comments Calcium, Ion (test code = 1993-) 1.16 mmol/L 1.12-1.27 pH, Blood (test code = 95770-1) 7.32 [facility] [id number] 05:10:00* Test Item Value Reference Range Interpretation Comments CALCIUM IONIZED (BEAKER) (test code = 698) 1.16 mmol/L 1.12-1.27 PH, BLOOD (BEAKER) (test code = 1810) 7.32 CBC with platelet count + automated [id number] 05:01:00* Test Item Value Reference Range Interpretation Comments WBC (test code = 6690-2) 5.4 3.5- 10.5 K/L RBC (test code = 789-8) 3.91 4.63- 6.08 M/L L MCHC (test code = 786-4) 33.5 32.3- 36.5 GM/DL L Hematocrit (test code = 4544-3) 36.7 % 40.1-51 L MCV (test code = 787-2) 93.9 fL 79-92.2 H MCH (test code = 785-6) 31.5 pg 25.7-32.2 RDW (test code = 788-0) 13.4 % 11.6-14.4 Platelets (test code = 777-3) 243 150- 450 K/CU MM MPV (test code = 98725-8) 9.4 fL 9.4-12.4 nRBC (test code = 413) 0 0- 0 /100 WBC % Neutros (test code = 429) 45 % % Lymphs (test code = 430) 43 % % Monos (test code = 431) 9 % % Eos (test code = 432) 3 % % Baso (test code = 437) 1 % # Neutros (test code = 670) 2.42 1.78- 5.38 K/L # Lymphs (test code = 414) 2.33 1.32- 3.57 K/L # Monos (test code = 415) 0.46 0.30- 0.82 K/L # Eos (test code = 416) 0.15 0.04- 0.54 K/L # Baso (test code = 417) 0.04 0.01- 0.08 K/L Immature Granulocytes-Relative (test code = 2801) 0 % 0-1 Lab Interpretation (test code = 56400-6) Abnormal [facility] W/PLT COUNT & AUTO [id number] 05:01:00* Test Item Value Reference Range Interpretation Comments WHITE BLOOD CELL COUNT (BEAKER) (test code = 775) 5.4 K/ L 3.5- 10.5 RED BLOOD CELL COUNT (BEAKER) (test code = 761) 3.91 M/ L 4.63-6 .08 L HEMOGLOBIN (BEAKER) (test code = 410) 12.3 GM/DL 13.7-17.5 L HEMATOCRIT (BEAKER) (test code = 411) 36.7 % 40.1-51.0 L MEAN CORPUSCULAR VOLUME (BEAKER) (test code = 753) 93.9 fL 79. 0-92.2 H MEAN CORPUSCULAR HEMOGLOBIN (BEAKER) (test code = 751) 31.5 pg 25.7-32.2 MEAN CORPUSCULAR HEMOGLOBIN CONC (BEAKER) (test code = 752) 33.5 GM/DL 32.3-36.5 RED CELL DISTRIBUTION WIDTH (BEAKER) (test code = 412) 13.4 % 11.6-14.4 PLATELET COUNT (BEAKER) (test code = 756) 243 K/CU MM 150-450 MEAN PLATELET VOLUME (BEAKER) (test code = 754) 9.4 fL 9.4-12 .4 NUCLEATED RED BLOOD CELLS (BEAKER) (test code = 413) 0 /100 WBC 0 -0 NEUTROPHILS RELATIVE PERCENT (BEAKER) (test code = 429) 45 % LYMPHOCYTES RELATIVE PERCENT (BEAKER) (test code = 430) 43 % MONOCYTES RELATIVE PERCENT (BEAKER) (test code = 431) 9 % EOSINOPHILS RELATIVE PERCENT (BEAKER) (test code = 432) 3 % BASOPHILS RELATIVE PERCENT (BEAKER) (test code = 437) 1 % NEUTROPHILS ABSOLUTE COUNT (BEAKER) (test code = 670) 2.42 K/ L 1.78-5.38 LYMPHOCYTES ABSOLUTE COUNT (BEAKER) (test code = 414) 2.33 K/ L 1.32-3.57 MONOCYTES ABSOLUTE COUNT (BEAKER) (test code = 415) 0.46 K/ L 0. 30-0.82 EOSINOPHILS ABSOLUTE COUNT (BEAKER) (test code = 416) 0.15 K/ L 0.04-0.54 BASOPHILS ABSOLUTE COUNT (BEAKER) (test code = 417) 0.04 K/ L 0. 01-0.08 IMMATURE GRANULOCYTES-RELATIVE PERCENT (BEAKER) (test code = 2801) 0 % 0-1 BASIC METABOLIC [id number] 05:02:00* Test Item Value Reference Range Interpretation Comments SODIUM (BEAKER) (test code = 381) 139 meq/L 136-145 POTASSIUM (BEAKER) (test code = 379) 4.0 meq/L 3.5-5.1 CHLORIDE (BEAKER) (test code = 382) 108 meq/L 98-107 H CO2 (BEAKER) (test code = 355) 26 meq/L 22-29 BLOOD UREA NITROGEN (BEAKER) (test code = 354) 9 mg/dL 7-21 CREATININE (BEAKER) (test code = 358) 0.81 mg/dL 0.57-1.25 GLUCOSE RANDOM (BEAKER) (test code = 652) 88 mg/dL 70-105 CALCIUM (BEAKER) (test code = 697) 8.8 mg/dL 8.4-10.2 EGFR (BEAKER) (test code = 1092) 105 mL/min/1.73 sq m ESTIMATED GFR IS NOT ACCURATE CREATININE CLEARANCE IN PREDICTING GLOMERULAR FILTRATION RATE. ESTIMATED GFR IS NOT APPLICABLE FOR DIALYSIS PATIENTS. Adoption Agent ID - LACXR 2 VIEW - [id number] 17:00:00 [facility] [address] [address] Patient Name: KIKE SERNA MR #: [id number] : 1980 Age/Sex: 39/M Req #: [id number] Adm Physician: Ordered by: RICHI DRUMMOND MD Report #: [id number] Location: [facility] Room/Bed: Procedure: 0120-000 2 HOPD/CXR 2 VIEW - HOPD Exam Date: 06/19/19 Exam Ti me: 1633 REPORT STATUS: Signed E XAMINATION: CXR 2 VIEW - HOPD INDICATION: Pneumonia COMPARISON: C hest radiograph 04/25/2017 FINDINGS: LINES/TUBES:None LUNGS: The lungs are mildly hyperinflated. Mild biapical pleural parenchymal thickeni ng/scarring. No focal consolidation or pulmonary edema. PLEURA:No pleural e ffusion or pneumothorax. MEDIASTINUM:The cardiomediastinal silhouette appea rs normal in size and shape. BONES/SOFT TISSUES:No acute osseous injury. ABDOMEN:No free air under the diaphragm. IMPRESSION: No focal pneu monia or pulmonary edema. Signed by: Suzan Villanueva MD on 06/19/2019 5:01 PM Dictated By: SUZAN VILLANUEVA MD 00 COPY TO: PIYUSH DRUMMOND MD Sodium Zmzqy6198-00-01 07:37:00* Test Item Value Reference Range Interpretation Comments Sodium Level (test code = 2951-2) 143 136-145 [facility]Pot[facility] Laxeg6210-42-77 07:37:00* Test Item Value Reference Range Interpretation Comments Potassium Level (test code = 2823-3) 4.3 3.5-5.1 [facility] BudaChloride Rfzyt6321-50-55 07:37:00* Test Item Value Reference Range Interpretation Comments Chloride Level (test code = 2075-0) 108 98-107 H [facility] BudaCarbon Dioxide Ogavp5863-86-67 07:37:00* Test Item Value Reference Range Interpretation Comments Carbon Dioxide Level (test code = 2028-9) 28 -29 [facility] BudaAnion Xqc7428-98-32 07:37:00* Test Item Value Reference Range Interpretation Comments Anion Gap (test code = 81389-3) 11.3 8-16 [facility] BudaBlood Urea Kgxyhthg7085-48-71 07:37:00* Test Item Value Reference Range Interpretation Comments Blood Urea Nitrogen (test code = 3094-0) 10 7-26 [facility] BudaCreatinine2018-05-22 07:37:00* Test Item Value Reference Range Interpretation Comments Creatinine (test code = 2160-0) 0.73 0.72-1.25 [facility] BudaBUN/Creatinine Iooze7445-12-13 07:37:00* Test Item Value Reference Range Interpretation Comments BUN/Creatinine Ratio (test code = 3097-3) 14 6-25 [facility] BudaEstimat Glomerular Filtration Rate 2017-10-19 07:37:00* Test Item Value Reference Range Interpretation Comments Estimat Glomerular Filtration Rate (test code = 85577-1) 60- >60 Ranges were taken from the National Kidney Disease Education Program and the [facility] [employer] literature.Reference ranges:60 or greater: Pdgset90-41 ( for 3 consecutive months): Chronic kidney disease 15 or less: Kidney failureBaylor Scott & White Medical Center – BudaGlucose Htgga4090-95-57 07:37:00* Test Item Value Reference Range Interpretation Comments Glucose Level (test code = HGW7427) 92 74-118 [facility] BudaCalcium Smspw4775-86-61 07:37:00* Test Item Value Reference Range Interpretation Comments Calcium Level (test code = 17128-8) 9.5 8.4-10.2 [facility] BudaTotal Kfibivtpt3102-42-95 07:07:00* Test Item Value Reference Range Interpretation Comments Total Bilirubin (test code = 1975-2) 0.5 0.2-1.2 [facility] BudaAspartate Amino Transf (AST/SGOT) 2017-10-18 07:07:00* Test Item Value Reference Range Interpretation Comments Aspartate Amino Transf (AST/SGOT) (test code = Aspartate Amino Transf (AST/SGOT)) 12 5-34 [facility] BudaAlanine Aminotransferase (ALT/SGPT) 2017-10-18 07:07:00* Test Item Value Reference Range Interpretation Comments Alanine Aminotransferase (ALT/SGPT) (test code = 1742-6) 11 0-55 [facility] BudaTotal Blxwkhd7191-30-90 07:07:00* Test Item Value Reference Range Interpretation Comments Total Protein (test code = 2885-2) 6.5 6.5-8.1 [facility] BudaAlbumin2018-05-21 07:07:00* Test Item Value Reference Range Interpretation Comments Albumin (test code = 1751-7) 3.2 3.5-5.0 L [facility] BudaGlobulin2018-05-21 07:07:00* Test Item Value Reference Range Interpretation Comments Globulin (test code = 32508-5) 3.3 2.3-3.5 [facility] BudaAlbumin/Globulin Wvwvc8792-63-21 07:07:00 * Test Item Value Reference Range Interpretation Comments Albumin/Globulin Ratio (test code = 1759-0) 1.0 0.8-2.0 [facility] BudaAlkaline Ehwecdnahxq8667-42-96 07:07:00* Test Item Value Reference Range Interpretation Comments Alkaline Phosphatase (test code = 6768-6) 43 40-150 [facility] BudaWhite Blood Hzisn6849-94-55 06:48:00* Test Item Value Reference Range Interpretation Comments White Blood Count (test code = 6690-2) 7.88 4.8-10.8 [facility] BudaRed Blood Exsuy8309-48-69 06:48:00* Test Item Value Reference Range Interpretation Comments Red Blood Count (test code = 789-8) 3.50 4.3-5.7 L [facility] BudaHemoglobin2018-05-21 06:48:00* Test Item Value Reference Range Interpretation Comments Hemoglobin (test code = 72416-4) 10.8 14.0-18.0 L [facility] BudaHematocrit2018-05-21 06:48:00* Test Item Value Reference Range Interpretation Comments Hematocrit (test code = 4544-3) 32.4 38.2-49.6 L [facility] BudaMean Corpuscular Lfulvc9240-39-50 06:48:00* Test Item Value Reference Range Interpretation Comments Mean Corpuscular Volume (test code = 787-2) 92.6 81-99 [facility] BudaMean Corpuscular Ozniwzxnxb6458-41-87 06:48:00* Test Item Value Reference Range Interpretation Comments Mean Corpuscular Hemoglobin (test code = 785-6) 30.9 28-32 [facility] BudaMean Corpuscular Hemoglobin Concent 2017-10-18 06:48:00* Test Item Value Reference Range Interpretation Comments Mean Corpuscular Hemoglobin Concent (test code = 786-4) 33.3 31-35 [facility] BudaRed Cell Distribution Hzhue8164-65-56 06:48:00* Test Item Value Reference Range Interpretation Comments Red Cell Distribution Width (test code = 43809-5) 14.0 11.7 -14.4 [facility] BudaPlatelet Nvfcq8133-95-68 06:48:00* Test Item Value Reference Range Interpretation Comments Platelet Count (test code = 777-3) 284 140-360 [facility] BudaNeutrophils (%) (Auto)2017-10-18 06:48:00 * Test Item Value Reference Range Interpretation Comments Neutrophils (%) (Auto) (test code = 49688-4) 61.2 38.7-80.0 [facility] BudaLymphocytes (%) (Auto)2017-10-18 06:48:00 * Test Item Value Reference Range Interpretation Comments Lymphocytes (%) (Auto) (test code = 736-9) 22.8 18.0-39.1 [facility] BudaMonocytes (%) (Auto)2017-10-18 06:48:00* Test Item Value Reference Range Interpretation Comments Monocytes (%) (Auto) (test code = 5905-5) 8.1 4.4-11.3 [facility] BudaEosinophils (%) (Auto)2017-10-18 06:48:00 * Test Item Value Reference Range Interpretation Comments Eosinophils (%) (Auto) (test code = 713-8) 7.1 0.0-6.0 H [facility] BudaBasophils (%) (Auto)2017-10-18 06:48:00* Test Item Value Reference Range Interpretation Comments Basophils (%) (Auto) (test code = 706-2) 0.5 0.0-1.0 [facility] BudaIM GRANULOCYTES %2017-10-18 06:48:00* Test Item Value Reference Range Interpretation Comments IM GRANULOCYTES % (test code = IM GRANULOCYTES %) 0.3 0.0- 1.0 [facility] BudaNeutrophils # (Auto)2017-10-18 06:48:00* Test Item Value Reference Range Interpretation Comments Neutrophils # (Auto) (test code = 751-8) 4.8 2.1-6.9 [facility] BudaLymphocytes # (Auto)2017-10-18 06:48:00* Test Item Value Reference Range Interpretation Comments Lymphocytes # (Auto) (test code = 80958-7) 1.8 1.0-3.2 [facility] BudaMonocytes # (Auto)2017-10-18 06:48:00* Test Item Value Reference Range Interpretation Comments Monocytes # (Auto) (test code = 742-7) 0.6 0.2-0.8 [facility] BudaEosinophils # (Auto)2017-10-18 06:48:00* Test Item Value Reference Range Interpretation Comments Eosinophils # (Auto) (test code = 711-2) 0.6 0.0-0.4 H [facility] BudaBasophils # (Auto)2017-10-18 06:48:00* Test Item Value Reference Range Interpretation Comments Basophils # (Auto) (test code = 704-7) 0.0 0.0-0.1 [facility] BudaAbsolute Immature Granulocyte (auto 2017-10-18 06:48:00* Test Item Value Reference Range Interpretation Comments Absolute Immature Granulocyte (auto (erum t code = Absolute Immature Granulocyte (auto) 0.02 0-0.1 [facility] BudaBedside Ozswmbi2334-21-08 11:56:00* Test Item Value Reference Range Interpretation Comments Bedside Glucose (test code = 45320-2) 189 70-120 H Meter ID: [id number] Scott & White Medical Center – BudaBlood Culture 2017-08-07 09:07:00* Test Item Value Reference Range Interpretation Comments Blood Culture (test code = 01047891) NO GROWTH AFTER 5 DAYS, FINAL REPORT [facility] BudaBlood Catyuch4570-26-35 09:07:00* Test Item Value Reference Range Interpretation Comments Blood Culture (test code = 64087213) NO GROWTH AFTER 72 HOURS [facility] Centerodium Bjpfq9465-78-27 06:51:00* Test Item Value Reference Range Interpretation Comments Sodium Level (test code = 2951-2) 145 136-145 [facility] BudaPotassium Uxgzn6871-62-18 06:51:00* Test Item Value Reference Range Interpretation Comments Potassium Level (test code = 2823-3) 3.3 3.5-5.1 L [facility] BudaChloride Qhdwa9257-22-65 06:51:00* Test Item Value Reference Range Interpretation Comments Chloride Level (test code = 2075-0) 110 98-107 H [facility] BudaCarbon Dioxide Tnxla6934-52-70 06:51:00* Test Item Value Reference Range Interpretation Comments Carbon Dioxide Level (test code = 2028-9) 29 22-29 [facility] BudaAnion Dxc5545-73-43 06:51:00* Test Item Value Reference Range Interpretation Comments Anion Gap (test code = 78903-9) 9.3 8-16 [facility] BudaBlood Urea Kixzupeh4494-72-24 06:51:00* Test Item Value Reference Range Interpretation Comments Blood Urea Nitrogen (test code = 3094-0) -2 7-26 L [facility] BudaCreatinine2018-03-08 06:51:00* Test Item Value Reference Range Interpretation Comments Creatinine (test code = 2160-0) 0.79 0.72-1.25 [facility] BudaBUN/Creatinine Gawlt3421-30-53 06:51:00* Test Item Value Reference Range Interpretation Comments BUN/Creatinine Ratio (test code = 3097-3) 3 6-25 L [facility] BudaEstimat Glomerular Filtration Rate 2017-08-05 06:51:00* Test Item Value Reference Range Interpretation Comments Estimat Glomerular Filtration Rate (test code = 15011-8) 60- >60 Ranges were taken from the National Kidney Disease Education Program and the [facility] Kidney Foundation literature.Reference ranges:60 or greater: Lqxhbs91-42 ( for 3 consecutive months): Chronic kidney disease 15 or less: Kidney failureBaylor Scott & White Medical Center – BudaGlucose Rnnpz5613-91-58 06:51:00* Test Item Value Reference Range Interpretation Comments Glucose Level (test code = YWD4318) 94 74-118 [facility] BudaCalcium Qzwgk9120-55-12 06:51:00* Test Item Value Reference Range Interpretation Comments Calcium Level (test code = 27624-6) 8.3 8.4-10.2 L [facility] BudaTotal Zgcmojqgj0710-34-49 06:38:00* Test Item Value Reference Range Interpretation Comments Total Bilirubin (test code = 1975-2) 0.4 0.2-1.2 [facility] BudaAspartate Amino Transf (AST/SGOT) 2017-08-04 06:38:00* Test Item Value Reference Range Interpretation Comments Aspartate Amino Transf (AST/SGOT) (test code = Aspartate Amino Transf (AST/SGOT)) 12 5-34 [facility] BudaAlanine Aminotransferase (ALT/SGPT) 2017-08-04 06:38:00* Test Item Value Reference Range Interpretation Comments Alanine Aminotransferase (ALT/SGPT) (test code = 1742-6) 6 0-55 [facility] BudaTotal Yrtbgah3260-20-11 06:38:00* Test Item Value Reference Range Interpretation Comments Total Protein (test code = 2885-2) 5.9 6.5-8.1 L [facility] BudaAlbumin2018-03-07 06:38:00* Test Item Value Reference Range Interpretation Comments Albumin (test code = 1751-7) 3.0 3.5-5.0 L [facility] BudaGlobulin2018-03-07 06:38:00* Test Item Value Reference Range Interpretation Comments Globulin (test code = 80674-9) 2.9 2.3-3.5 [facility] BudaAlbumin/Globulin Tsrnz4109-93-51 06:38:00 * Test Item Value Reference Range Interpretation Comments Albumin/Globulin Ratio (test code = 1759-0) 1.0 0.8-2.0 [facility] BudaAlkaline Lwvpffliuyb7852-44-44 06:38:00* Test Item Value Reference Range Interpretation Comments Alkaline Phosphatase (test code = 6768-6) 33 40-150 L [facility] BudaWhite Blood Jyuup4101-80-47 06:13:00* Test Item Value Reference Range Interpretation Comments White Blood Count (test code = 6690-2) 4.31 4.8-10.8 L [facility] BudaRed Blood Upeeu8396-32-42 06:13:00* Test Item Value Reference Range Interpretation Comments Red Blood Count (test code = 789-8) 3.50 4.3-5.7 L [facility] BudaHemoglobin2018-03-07 06:13:00* Test Item Value Reference Range Interpretation Comments Hemoglobin (test code = 54669-5) 10.9 14.0-18.0 L [facility] BudaHematocrit2018-03-07 06:13:00* Test Item Value Reference Range Interpretation Comments Hematocrit (test code = 4544-3) 31.9 38.2-49.6 L [facility] BudaMean Corpuscular Yesvgz4627-68-03 06:13:00* Test Item Value Reference Range Interpretation Comments Mean Corpuscular Volume (test code = 787-2) 91.1 81-99 [facility] BudaMean Corpuscular Ptowziduuv1873-63-38 06:13:00* Test Item Value Reference Range Interpretation Comments Mean Corpuscular Hemoglobin (test code = 785-6) 31.1 28-32 [facility] BudaMean Corpuscular Hemoglobin Concent 2017-08-04 06:13:00* Test Item Value Reference Range Interpretation Comments Mean Corpuscular Hemoglobin Concent (test code = 786-4) 34.2 31-35 [facility] BudaRed Cell Distribution Eincv8227-24-72 06:13:00* Test Item Value Reference Range Interpretation Comments Red Cell Distribution Width (test code = 84375-3) 14.0 11.7 -14.4 [facility] BudaPlatelet Efkry3276-22-54 06:13:00* Test Item Value Reference Range Interpretation Comments Platelet Count (test code = 777-3) 224 140-360 [facility] BudaNeutrophils (%) (Auto)2017-08-04 06:13:00 * Test Item Value Reference Range Interpretation Comments Neutrophils (%) (Auto) (test code = 36162-9) 47.7 38.7-80.0 [facility] BudaLymphocytes (%) (Auto)2017-08-04 06:13:00 * Test Item Value Reference Range Interpretation Comments Lymphocytes (%) (Auto) (test code = 736-9) 38.1 18.0-39.1 [facility] BudaMonocytes (%) (Auto)2017-08-04 06:13:00* Test Item Value Reference Range Interpretation Comments Monocytes (%) (Auto) (test code = 5905-5) 7.7 4.4-11.3 [facility] BudaEosinophils (%) (Auto)2017-08-04 06:13:00 * Test Item Value Reference Range Interpretation Comments Eosinophils (%) (Auto) (test code = 713-8) 5.6 0.0-6.0 [facility] BudaBasophils (%) (Auto)2017-08-04 06:13:00* Test Item Value Reference Range Interpretation Comments Basophils (%) (Auto) (test code = 706-2) 0.9 0.0-1.0 [facility] BudaIM GRANULOCYTES %2017-08-04 06:13:00* Test Item Value Reference Range Interpretation Comments IM GRANULOCYTES % (test code = IM GRANULOCYTES %) 0.0 0.0- 1.0 [facility] BudaNeutrophils # (Auto)2017-08-04 06:13:00* Test Item Value Reference Range Interpretation Comments Neutrophils # (Auto) (test code = 751-8) 2.1 2.1-6.9 [facility] BudaLymphocytes # (Auto)2017-08-04 06:13:00* Test Item Value Reference Range Interpretation Comments Lymphocytes # (Auto) (test code = 66386-1) 1.6 1.0-3.2 [facility] BudaMonocytes # (Auto)2017-08-04 06:13:00* Test Item Value Reference Range Interpretation Comments Monocytes # (Auto) (test code = 742-7) 0.3 0.2-0.8 [facility] BudaEosinophils # (Auto)2017-08-04 06:13:00* Test Item Value Reference Range Interpretation Comments Eosinophils # (Auto) (test code = 711-2) 0.2 0.0-0.4 [facility] BudaBasophils # (Auto)2017-08-04 06:13:00* Test Item Value Reference Range Interpretation Comments Basophils # (Auto) (test code = 704-7) 0.0 0.0-0.1 [facility] BudaAbsolute Immature Granulocyte (auto 2017-08-04 06:13:00* Test Item Value Reference Range Interpretation Comments Absolute Immature Granulocyte (auto (erum t code = Absolute Immature Granulocyte (auto) 0 0-0.1 [facility] BudaBedside Jwxezes3124-83-30 12:07:00* Test Item Value Reference Range Interpretation Comments Bedside Glucose (test code = 84517-2) 121 70-120 H Meter ID: [id number] Scott & White [facility] Center – BudaAmylase Level 2017-08-02 06:54:00* Test Item Value Reference Range Interpretation Comments Amylase Level (test code = 1798-8) 31 25-125 [facility] BudaLipase2018-03-05 06:54:00* Test Item Value Reference Range Interpretation Comments Lipase (test code = 3040-3) 7 8-78 L [facility] BudaAmylase Qubxo7302-59-85 06:54:00* Test Item Value Reference Range Interpretation Comments Amylase Level (test code = 1798-8) 31 25-125 [facility] BudaLipase2018-03-05 06:54:00* Test Item Value Reference Range Interpretation Comments Lipase (test code = 3040-3) 7 8-78 L [facility] BudaLactic Acid Fshew1547-27-02 21:11:00* Test Item Value Reference Range Interpretation Comments Lactic Acid Level (test code = Lactic Acid Level) 5.1 4.5- 19.8 [facility] BudaLactic Acid Cbuwq2507-60-20 21:11:00* Test Item Value Reference Range Interpretation Comments Lactic Acid Level (test code = Lactic Acid Level) 5.1 4.5- 19.8 [facility] BudaCreatine Kinase MT8072-10-38 19:56:00* Test Item Value Reference Range Interpretation Comments Creatine Kinase MB (test code = 70497-3) 0.60 0-5.0 [facility] BudaTroponin W5099-65-63 19:56:00* Test Item Value Reference Range Interpretation Comments Troponin I (test code = IJM6026) -0.001 0-0.300 [facility] BudaCreatine Kinase CB5858-04-36 19:56:00* Test Item Value Reference Range Interpretation Comments Creatine Kinase MB (test code = 18849-0) 0.60 0-5.0 [facility] BudaTroponin I4958-90-27 19:56:00* Test Item Value Reference Range Interpretation Comments Troponin I (test code = HMH8873) -0.001 0-0.300 [facility] BudaUrine IXE5953-79-70 19:54:00* Test Item Value Reference Range Interpretation Comments Urine WBC (test code = 5821-4) 11-20 0-5 H [facility] BudaUrine ASM8367-68-72 19:54:00* Test Item Value Reference Range Interpretation Comments Urine RBC (test code = 54780-2) 0-5 0-5 [facility] BudaUrine Hurqodis8493-70-62 19:54:00* Test Item Value Reference Range Interpretation Comments Urine Bacteria (test code = 33514-9) NONE NONE [facility] BudaUrine Epithelial Kyidj7760-08-16 19:54:00 * Test Item Value Reference Range Interpretation Comments Urine Epithelial Cells (test code = 69727-8) NONE NONE [facility] BudaUrine JVC7273-59-22 19:54:00* Test Item Value Reference Range Interpretation Comments Urine WBC (test code = 5821-4) 11-20 0-5 H [facility] BudaUrine RWM8901-47-00 19:54:00* Test Item Value Reference Range Interpretation Comments Urine RBC (test code = 07267-9) 0-5 0-5 [facility] BudaUrine Axrglsjw9065-69-03 19:54:00* Test Item Value Reference Range Interpretation Comments Urine Bacteria (test code = 18927-8) NONE NONE [facility] BudaUrine Epithelial Vlyad5143-79-61 19:54:00 * Test Item Value Reference Range Interpretation Comments Urine Epithelial Cells (test code = 39615-2) NONE NONE [facility] BudaMagnesium Rvoet2319-69-82 19:50:00* Test Item Value Reference Range Interpretation Comments Magnesium Level (test code = 42421-6) 2.0 1.3-2.1 [facility] BudaCreatine Nosyhe6037-02-23 19:50:00* Test Item Value Reference Range Interpretation Comments Creatine Kinase (test code = 2157-6) 35 30-200 [facility] BudaMagnesium Tpvok6917-31-04 19:50:00* Test Item Value Reference Range Interpretation Comments Magnesium Level (test code = 65074-2) 2.0 1.3-2.1 [facility] BudaCreatine Wagfhv0892-49-21 19:50:00* Test Item Value Reference Range Interpretation Comments Creatine Kinase (test code = 2157-6) 35 30-200 [facility] BudaProthrombin Ornx6220-27-69 19:45:00* Test Item Value Reference Range Interpretation Comments Prothrombin Time (test code = 5902-2) 12.6 11.9-14.5 [facility] BudaProthromb Time International Ratio 2017-07-30 19:45:00* Test Item Value Reference Range Interpretation Comments Prothromb Time International Ratio (test code = 6301-6) 1.02 Oral Anticoagulant Therapy INR Values:1. Low Intensity Therapy 1.5 - 2.02 . Moderate Intensity Therapy 2.0 - 3.03. High Intensity Therapy(1) 2.5 - 3. 54. High Intensity Therapy(2) 3.0 - 4.05. Panic Value INR > 5.0 [facility] BudaActivated Partial Thromboplast Time 2017-07-30 19:45:00* Test Item Value Reference Range Interpretation Comments Activated Partial Thromboplast Time (test code = 34901-6) 32.4 23.8-35.5 [facility] BudaProthrombin Dhuu4998-98-07 19:45:00* Test Item Value Reference Range Interpretation Comments Prothrombin Time (test code = 5902-2) 12.6 11.9-14.5 [facility] BudaProthromb Time International Ratio 2017-07-30 19:45:00* Test Item Value Reference Range Interpretation Comments Prothromb Time International Ratio (test code = 6301-6) 1.02 Oral Anticoagulant Therapy INR Values:1. Low Intensity Therapy 1.5 - 2.02 . Moderate Intensity Therapy 2.0 - 3.03. High Intensity Therapy(1) 2.5 - 3. 54. High Intensity Therapy(2) 3.0 - 4.05. Panic Value INR > 5.0 [facility] BudaActivated Partial Thromboplast Time 2017-07-30 19:45:00* Test Item Value Reference Range Interpretation Comments Activated Partial Thromboplast Time (test code = 72718-0) 32.4 23.8-35.5 [facility] BudaUrine Tewrw2200-68-43 19:42:00* Test Item Value Reference Range Interpretation Comments Urine Color (test code = 5778-6) YELLOW YELLOW [facility] BudaUrine Lkcjfpa5829-79-25 19:42:00* Test Item Value Reference Range Interpretation Comments Urine Clarity (test code = 49834-3) CLEAR CLEAR [facility] BudaUrine Specific Dwfzige4169-55-67 19:42:00 * Test Item Value Reference Range Interpretation Comments Urine Specific [place] (test code = 5811-5) 1.010 1.010-1.02 5 [facility] BudaUrine kH0604-34-19 19:42:00* Test Item Value Reference Range Interpretation Comments Urine pH (test code = 21408-0) 8 5-7 H [facility] BudaUrine Leukocyte Swelktcd5337-39-85 19:42:00* Test Item Value Reference Range Interpretation Comments Urine Leukocyte Esterase (test code = 5799-2) 2+ NEGATIVE H [facility] BudaUrine Ieerirh8923-90-63 19:42:00* Test Item Value Reference Range Interpretation Comments Urine Nitrite (test code = 46950-2) NEGATIVE NEGATIVE [facility] BudaUrine Gjdqlth1384-18-95 19:42:00* Test Item Value Reference Range Interpretation Comments Urine Protein (test code = 5804-0) NEGATIVE NEGATIVE [facility] BudaUrine Glucose (UA)2017-07-30 19:42:00* Test Item Value Reference Range Interpretation Comments Urine Glucose (UA) (test code = 2349-9) NEGATIVE NEGATIVE [facility] BudaUrine Sijllpc7380-86-52 19:42:00* Test Item Value Reference Range Interpretation Comments Urine Ketones (test code = 40773-7) NEGATIVE NEGATIVE [facility] BudaUrine Ohalkprjsjky4115-89-45 19:42:00* Test Item Value Reference Range Interpretation Comments Urine Urobilinogen (test code = 88825-3) 0.2 0.2-1 [facility] BudaUrine Bioxyeezj0678-30-56 19:42:00* Test Item Value Reference Range Interpretation Comments Urine Bilirubin (test code = 1978-6) NEGATIVE NEGATIVE [facility] BudaUrine Wynha9492-40-75 19:42:00* Test Item Value Reference Range Interpretation Comments Urine Blood (test code = 01327-9) 1+ NEGATIVE H [facility] BudaUrine Jtgvs9340-45-54 19:42:00* Test Item Value Reference Range Interpretation Comments Urine Color (test code = 5778-6) YELLOW YELLOW [facility] BudaUrine Xenlsac2864-42-85 19:42:00* Test Item Value Reference Range Interpretation Comments Urine Clarity (test code = 69964-1) CLEAR CLEAR [facility] BudaUrine Specific Pynvlpr4113-99-27 19:42:00 * Test Item Value Reference Range Interpretation Comments Urine Specific [place] (test code = 5811-5) 1.010 1.010-1.02 5 [facility] BudaUrine hP1784-05-20 19:42:00* Test Item Value Reference Range Interpretation Comments Urine pH (test code = 30582-7) 8 5-7 H [facility] BudaUrine Leukocyte Ldoimodp5204-59-70 19:42:00* Test Item Value Reference Range Interpretation Comments Urine Leukocyte Esterase (test code = 5799-2) 2+ NEGATIVE H [facility] BudaUrine Vntbvyh5786-10-17 19:42:00* Test Item Value Reference Range Interpretation Comments Urine Nitrite (test code = 21063-3) NEGATIVE NEGATIVE [facility] BudaUrine Amjaico4306-27-76 19:42:00* Test Item Value Reference Range Interpretation Comments Urine Protein (test code = 5804-0) NEGATIVE NEGATIVE [facility] BudaUrine Glucose (UA)2017-07-30 19:42:00* Test Item Value Reference Range Interpretation Comments Urine Glucose (UA) (test code = 2349-9) NEGATIVE NEGATIVE [facility] BudaUrine Lumzzhe7639-17-79 19:42:00* Test Item Value Reference Range Interpretation Comments Urine Ketones (test code = 55784-0) NEGATIVE NEGATIVE [facility] BudaUrine Ugxiglcltwey9373-40-32 19:42:00* Test Item Value Reference Range Interpretation Comments Urine Urobilinogen (test code = 09533-4) 0.2 0.2-1 [facility] BudaUrine Akupaccju4287-69-79 19:42:00* Test Item Value Reference Range Interpretation Comments Urine Bilirubin (test code = 1978-6) NEGATIVE NEGATIVE [facility] BudaUrine Ylzxs2419-38-39 19:42:00* Test Item Value Reference Range Interpretation Comments Urine Blood (test code = 05025-1) 1+ NEGATIVE H [facility] BudaWhite Blood Fruga9669-59-18 07:06:00* Test Item Value Reference Range Interpretation Comments White Blood Count (test code = 6690-2) 5.59 4.8-10.8 [facility] BudaRed Blood Ypyfi5026-38-71 07:06:00* Test Item Value Reference Range Interpretation Comments Red Blood Count (test code = 789-8) 3.22 4.3-5.7 L [facility] BudaHemoglobin2018-02-02 07:06:00* Test Item Value Reference Range Interpretation Comments Hemoglobin (test code = 11016-3) 10.1 14.0-18.0 L [facility] BudaHematocrit2018-02-02 07:06:00* Test Item Value Reference Range Interpretation Comments Hematocrit (test code = 4544-3) 30.0 38.2-49.6 L [facility] BudaMean Corpuscular Ooohpa0187-73-86 07:06:00* Test Item Value Reference Range Interpretation Comments Mean Corpuscular Volume (test code = 787-2) 93.2 81-99 [facility] BudaMean Corpuscular Htxgpwpeoj5713-75-41 07:06:00* Test Item Value Reference Range Interpretation Comments Mean Corpuscular Hemoglobin (test code = 785-6) 31.4 28-32 [facility] BudaMean Corpuscular Hemoglobin Concent 2017-07-02 07:06:00* Test Item Value Reference Range Interpretation Comments Mean Corpuscular Hemoglobin Concent (test code = 786-4) 33.7 31-35 [facility] BudaRed Cell Distribution Gjvvd6979-53-76 07:06:00* Test Item Value Reference Range Interpretation Comments Red Cell Distribution Width (test code = 63786-0) 13.0 11.7 -14.4 [facility] BudaPlatelet Qxztx5355-45-99 07:06:00* Test Item Value Reference Range Interpretation Comments Platelet Count (test code = 777-3) 289 140-360 [facility] BudaNeutrophils (%) (Auto)2017-07-02 07:06:00 * Test Item Value Reference Range Interpretation Comments Neutrophils (%) (Auto) (test code = 15746-2) 48.2 38.7-80.0 [facility] BudaLymphocytes (%) (Auto)2017-07-02 07:06:00 * Test Item Value Reference Range Interpretation Comments Lymphocytes (%) (Auto) (test code = 736-9) 34.7 18.0-39.1 [facility] BudaMonocytes (%) (Auto)2017-07-02 07:06:00* Test Item Value Reference Range Interpretation Comments Monocytes (%) (Auto) (test code = 5905-5) 7.2 4.4-11.3 [facility] BudaEosinophils (%) (Auto)2017-07-02 07:06:00 * Test Item Value Reference Range Interpretation Comments Eosinophils (%) (Auto) (test code = 713-8) 8.6 0.0-6.0 H [facility] BudaBasophils (%) (Auto)2017-07-02 07:06:00* Test Item Value Reference Range Interpretation Comments Basophils (%) (Auto) (test code = 706-2) 0.9 0.0-1.0 [facility] BudaIM GRANULOCYTES %2017-07-02 07:06:00* Test Item Value Reference Range Interpretation Comments IM GRANULOCYTES % (test code = IM GRANULOCYTES %) 0.4 0.0- 1.0 [facility] BudaNeutrophils # (Auto)2017-07-02 07:06:00* Test Item Value Reference Range Interpretation Comments Neutrophils # (Auto) (test code = 751-8) 2.7 2.1-6.9 [facility] BudaLymphocytes # (Auto)2017-07-02 07:06:00* Test Item Value Reference Range Interpretation Comments Lymphocytes # (Auto) (test code = 33160-0) 1.9 1.0-3.2 [facility] BudaMonocytes # (Auto)2017-07-02 07:06:00* Test Item Value Reference Range Interpretation Comments Monocytes # (Auto) (test code = 742-7) 0.4 0.2-0.8 [facility] BudaEosinophils # (Auto)2017-07-02 07:06:00* Test Item Value Reference Range Interpretation Comments Eosinophils # (Auto) (test code = 711-2) 0.5 0.0-0.4 H [facility] BudaBasophils # (Auto)2017-07-02 07:06:00* Test Item Value Reference Range Interpretation Comments Basophils # (Auto) (test code = 704-7) 0.1 0.0-0.1 [facility] BudaAbsolute Immature Granulocyte (auto 2017-07-02 07:06:00* Test Item Value Reference Range Interpretation Comments Absolute Immature Granulocyte (auto (erum t code = Absolute Immature Granulocyte (auto) 0.02 0-0.1 [facility] Centerodium Hnoqq4145-14-30 10:04:00* Test Item Value Reference Range Interpretation Comments Sodium Level (test code = 2951-2) 144 136-145 [facility] BudaPotassium Kayzg8115-85-12 10:04:00* Test Item Value Reference Range Interpretation Comments Potassium Level (test code = 2823-3) 3.6 3.5-5.1 [facility] BudaChloride Myxse3792-35-99 10:04:00* Test Item Value Reference Range Interpretation Comments Chloride Level (test code = 2075-0) 111 98-107 H [facility] BudaCarbon Dioxide Ygasn5443-86-41 10:04:00* Test Item Value Reference Range Interpretation Comments Carbon Dioxide Level (test code = 2028-9) 27 22-29 [facility] BudaAnion Rkk5326-75-89 10:04:00* Test Item Value Reference Range Interpretation Comments Anion Gap (test code = 37531-1) 9.6 8-16 [facility] BudaBlood Urea Jgfqxovv9456-23-00 10:04:00* Test Item Value Reference Range Interpretation Comments Blood Urea Nitrogen (test code = 3094-0) 8 7-26 [facility] BudaCreatinine2018-02-01 10:04:00* Test Item Value Reference Range Interpretation Comments Creatinine (test code = 2160-0) 0.77 0.72-1.25 [facility] BudaBUN/Creatinine Zwiqd8465-77-65 10:04:00* Test Item Value Reference Range Interpretation Comments BUN/Creatinine Ratio (test code = 3097-3) 10 6-25 [facility] BudaEstimat Glomerular Filtration Rate 2017-07-01 10:04:00* Test Item Value Reference Range Interpretation Comments Estimat Glomerular Filtration Rate (test code = 55520-9) 60- >60 Ranges were taken from the National Kidney Disease Education Program and the [facility] health[facility] [employer] literature.Reference ranges:60 or greater: Mjoztv23-17 ( for 3 consecutive months): Chronic kidney disease 15 or less: Kidney failureBaylor Scott & [facility] Medical Center – BudaGlucose Qdidt5094-08-00 10:04:00* Test Item Value Reference Range Interpretation Comments Glucose Level (test code = NVQ6767) 108 74-118 [facility] BudaCalcium Otehc3836-66-86 10:04:00* Test Item Value Reference Range Interpretation Comments Calcium Level (test code = 44573-8) 8.4 8.4-10.2 [facility] BudaTotal Vqpjhzpbb7479-08-22 10:04:00* Test Item Value Reference Range Interpretation Comments Total Bilirubin (test code = 1975-2) 0.6 0.2-1.2 [facility] BudaAspartate Amino Transf (AST/SGOT) 2017-07-01 10:04:00* Test Item Value Reference Range Interpretation Comments Aspartate Amino Transf (AST/SGOT) (test code = Aspartate Amino Transf (AST/SGOT)) 18 5-34 [facility] BudaAlanine Aminotransferase (ALT/SGPT) 2017-07-01 10:04:00* Test Item Value Reference Range Interpretation Comments Alanine Aminotransferase (ALT/SGPT) (test code = 1742-6) 20 0-55 [facility] BudaTotal Mltxmhv7419-76-19 10:04:00* Test Item Value Reference Range Interpretation Comments Total Protein (test code = 2885-2) 6.5 6.5-8.1 [facility] BudaAlbumin2018-02-01 10:04:00* Test Item Value Reference Range Interpretation Comments Albumin (test code = 1751-7) 3.1 3.5-5.0 L [facility] BudaGlobulin2018-02-01 10:04:00* Test Item Value Reference Range Interpretation Comments Globulin (test code = 78962-4) 3.4 2.3-3.5 [facility] BudaAlbumin/Globulin Ziiou5231-46-63 10:04:00 * Test Item Value Reference Range Interpretation Comments Albumin/Globulin Ratio (test code = 1759-0) 0.9 0.8-2.0 [facility] BudaAlkaline Ytqdzsbodyc0043-92-25 10:04:00* Test Item Value Reference Range Interpretation Comments Alkaline Phosphatase (test code = 6768-6) 53 40-150 [facility] BudaBedside Ayvrpbo6921-71-53 05:46:00* Test Item Value Reference Range Interpretation Comments Bedside Glucose (test code = 94238-5) 116 70-120 Meter ID: [id number] Scott & [facility] Center – BudaMagnesium Level 2017-06-29 07:26:00* Test Item Value Reference Range Interpretation Comments Magnesium Level (test code = 06205-8) 1.9 1.3-2.1 [facility] BudaAmylase Pqidm3553-64-58 05:41:00* Test Item Value Reference Range Interpretation Comments Amylase Level (test code = 1798-8) 37 25-125 [facility] BudaLipase2018-01-16 05:41:00* Test Item Value Reference Range Interpretation Comments Lipase (test code = 3040-3) 20 8-78 [facility] BudaUrine OSG7999-90-38 05:01:00* Test Item Value Reference Range Interpretation Comments Urine WBC (test code = 5821-4) 0-5 0-5 [facility] BudaUrine YZC0755-86-78 05:01:00* Test Item Value Reference Range Interpretation Comments Urine RBC (test code = 17594-3) 0-5 0-5 [facility] BudaUrine Jwacquvw0379-43-95 05:01:00* Test Item Value Reference Range Interpretation Comments Urine Bacteria (test code = 62454-2) MANY NONE H [facility] BudaUrine Epithelial Yuofc8323-37-28 05:01:00 * Test Item Value Reference Range Interpretation Comments Urine Epithelial Cells (test code = 34074-2) RARE NONE [facility] BudaUrine Amhbz0080-03-06 04:46:00* Test Item Value Reference Range Interpretation Comments Urine Color (test code = 5778-6) YELLOW YELLOW [facility] BudaUrine Ewmgmvz6136-63-33 04:46:00* Test Item Value Reference Range Interpretation Comments Urine Clarity (test code = 85857-6) SL CLOUDY CLEAR H [facility] BudaUrine Specific Rvramod9174-85-83 04:46:00 * Test Item Value Reference Range Interpretation Comments Urine Specific [place] (test code = 5811-5) 1.020 1.010-1.02 5 [facility] BudaUrine iF1435-06-58 04:46:00* Test Item Value Reference Range Interpretation Comments Urine pH (test code = 88226-8) 8 5-7 H [facility] BudaUrine Leukocyte Gfupdrjm2665-90-54 04:46:00* Test Item Value Reference Range Interpretation Comments Urine Leukocyte Esterase (test code = 5799-2) NEGATIVE NEGATIVE [facility] BudaUrine Qulkebt8045-35-10 04:46:00* Test Item Value Reference Range Interpretation Comments Urine Nitrite (test code = 91349-6) NEGATIVE NEGATIVE [facility] BudaUrine Xtnbmwy5782-41-45 04:46:00* Test Item Value Reference Range Interpretation Comments Urine Protein (test code = 5804-0) NEGATIVE NEGATIVE [facility] BudaUrine Glucose (UA)2017-06-14 04:46:00* Test Item Value Reference Range Interpretation Comments Urine Glucose (UA) (test code = 2349-9) NEGATIVE NEGATIVE [facility] BudaUrine Ektblec3513-36-10 04:46:00* Test Item Value Reference Range Interpretation Comments Urine Ketones (test code = 10309-1) NEGATIVE NEGATIVE [facility] Uznkwlzzvqfv1050-02-43 04:46:00* Test Item Value Reference Range Interpretation Comments Urine Urobilinogen (test code = 33663-6) 0.2 0.2-1 [facility] BudaUrine Fmhmidgio5192-68-99 04:46:00* Test Item Value Reference Range Interpretation Comments Urine Bilirubin (test code = 1978-6) NEGATIVE NEGATIVE [facility] BudaUrine Swzav0086-85-30 04:46:00* Test Item Value Reference Range Interpretation Comments Urine Blood (test code = 60959-8) NEGATIVE NEGATIVE [facility] BudaBlood Shgwctq8767-87-07 15:04:00* Test Item Value Reference Range Interpretation Comments Blood Culture (test code = 84294797) NO GROWTH AFTER 5 DAYS, FINAL REPORT [facility] BudaThyroid Stimulating Hormone (TSH) 2017-04-24 07:06:00* Test Item Value Reference Range Interpretation Comments Thyroid Stimulating Hormone (TSH) (test code = 65314-2) 2.309 0.350-4.940 [facility] BudaThyroid Stimulating Hormone (TSH) 2017-04-24 07:06:00* Test Item Value Reference Range Interpretation Comments Thyroid Stimulating Hormone (TSH) (test code = 67061-0) 2.309 0.350-4.940 [facility] BudaThyroid Stimulating Hormone (TSH) 2017-04-24 07:06:00* Test Item Value Reference Range Interpretation Comments Thyroid Stimulating Hormone (TSH) (test code = 28645-9) 2.309 0.350-4.940 [facility] BudaTriglycerides Hwexp8992-67-89 06:54:00* Test Item Value Reference Range Interpretation Comments Triglycerides Level (test code = 2571-8) 56 0-149 [facility] BudaCholesterol Atgpf5767-17-55 06:54:00* Test Item Value Reference Range Interpretation Comments Cholesterol Level (test code = 2093-3) 159 0-199 Less than 200 mg/dL Low Hgix878 - 239 mg/dL Borderline Yhmk196 m g/dl and greater High Risk [facility] BudaLDL Hnweedonpgz8101-67-41 06:54:00* Test Item Value Reference Range Interpretation Comments LDL Cholesterol (test code = 28854-6) 111 60-130 [facility] Ujrfxorjfcs3770-16-46 06:54:00* Test Item Value Reference Range Interpretation Comments HDL Cholesterol (test code = 2085-9) 37 40-60 L [facility] BudaCholesterol/HDL Spzpf7648-61-58 06:54:00 * Test Item Value Reference Range Interpretation Comments Cholesterol/HDL Ratio (test code = 9830-1) 4.3 3.9-4.7 [facility] BudaTriglycerides Hwaxy9742-28-21 06:54:00* Test Item Value Reference Range Interpretation Comments Triglycerides Level (test code = 2571-8) 56 0-149 [facility] BudaCholesterol Luqsk9024-57-44 06:54:00* Test Item Value Reference Range Interpretation Comments Cholesterol Level (test code = 2093-3) 159 0-199 Less than 200 mg/dL Low Bcyz411 - 239 mg/dL Borderline Miim221 m g/dl and greater High Risk [facility] BudaLDL Rkcnxfhrpji2714-54-25 06:54:00* Test Item Value Reference Range Interpretation Comments LDL Cholesterol (test code = 83135-1) 111 60-130 [facility] Bjkjynqytuy1925-19-99 06:54:00* Test Item Value Reference Range Interpretation Comments HDL Cholesterol (test code = 2085-9) 37 40-60 L [facility] BudaCholesterol/HDL Yohrw7384-83-32 06:54:00 * Test Item Value Reference Range Interpretation Comments Cholesterol/HDL Ratio (test code = 9830-1) 4.3 3.9-4.7 [facility] BudaTriglycerides Qakgn4290-55-33 06:54:00* Test Item Value Reference Range Interpretation Comments Triglycerides Level (test code = 2571-8) 56 0-149 [facility] BudaCholesterol Wimvv8757-06-31 06:54:00* Test Item Value Reference Range Interpretation Comments Cholesterol Level (test code = 2093-3) 159 0-199 Less than 200 mg/dL Low Quoc931 - 239 mg/dL Borderline Scai275 m g/dl and greater High Risk [facility] BudaLDL Btzdgakjnov1930-12-94 06:54:00* Test Item Value Reference Range Interpretation Comments LDL Cholesterol (test code = 64988-4) 111 60-130 [facility] BudaHDL Zojgkzlgzap3030-76-55 06:54:00* Test Item Value Reference Range Interpretation Comments HDL Cholesterol (test code = 2085-9) 37 40-60 L [facility] BudaCholesterol/HDL Xbibx3685-34-81 06:54:00 * Test Item Value Reference Range Interpretation Comments Cholesterol/HDL Ratio (test code = 9830-1) 4.3 3.9-4.7 [facility] BudaCreatine Kinase JE9649-37-76 23:43:00* Test Item Value Reference Range Interpretation Comments Creatine Kinase MB (test code = 74651-0) 0.60 0.00-5.00 [facility] BudaTroponin Z3551-24-22 23:43:00* Test Item Value Reference Range Interpretation Comments Troponin I (test code = 46870-8) 0.003 0-0.300 [facility] BudaCreatine Qjboyu3520-38-78 23:35:00* Test Item Value Reference Range Interpretation Comments Creatine Kinase (test code = 2157-6) 58 30-200 [facility] BudaProthrombin Nyum7854-62-34 23:25:00* Test Item Value Reference Range Interpretation Comments Prothrombin Time (test code = 5902-2) 12.6 11.9-14.5 [facility] BudaProthromb Time International Ratio 2017-04-22 23:25:00* Test Item Value Reference Range Interpretation Comments Prothromb Time International Ratio (test code = 6301-6) 0.90 Oral Anticoagulant Therapy INR Values:1. Low Intensity Therapy 1.5 - 2.02 . Moderate Intensity Therapy 2.0 - 3.03. High Intensity Therapy(1) 2.5 - 3. 54. High Intensity Therapy(2) 3.0 - 4.05. Panic Value INR > 5.0 [facility] BudaActivated Partial Thromboplast Time 2017-04-22 23:25:00* Test Item Value Reference Range Interpretation Comments Activated Partial Thromboplast Time (test code = 38572-3) 30.1 23.8-35.5 [facility] BudaABDOMEN-1VIEW (KUB) [place] [address] Patient Name: KIKE SERNA MR #: [id number] : 1980 Age/Sex: 37/M Req #: [id number] Adm Physician: ASHLEE ANTONIO MD Ordered by: ASHTYN MITCHELL MD Report #: [id number] Location: MED/SURG2 Room/Bed: [facility] Procedure: 304- 05 DX/ABDOMEN-1VIEW (KUB) Exam Date: Exam Time: REPORT STATUS: Signed EXAM: ABDOMEN-1VIEW (KUB), supine INDICATION: Sm all bowel obstruction COMPARISON: KUB June 29, [address] of the abdomen a nd pelvis July 30, 2017 FINDINGS: LINES/TUBES: Interval placement of nasa l/lateral gastric tube that terminates in expected location of the body of the stomach. BOWEL PATTERN: Interval decompression of the stomach. No bowel ob struction. SOFT TISSUES: Surgical changes of lower abdominal hernia repair LUNG BASES: Not included BONES: No acute findings. IMPRESSION: Interval decompression of the stomach with nasal/orogastric tube. Signed by: Dr. Michael Mccauley M.D. on 08/02/2017 6:48 AM Dictated By : MICHAEL MCCAULEY MD 7 Transcribed By: JOYCE on 08/02/17647 COPY TO: ASHTYN MITCHELL MD CT ABDOMEN/PELVIS W [place] [address] Patient Name: KIKE SERNA MR #: [id number] : 1980 Age/Sex: 37/M Req #: [id number] Adm Physician: Ordered by: JOHN HAN MD Report #: [id number] Location: ER Room/Bed: Procedure: [id number] CT/CT ABDOMEN/PELVIS W Exam Date: 07/30/17 Exam Time: 2129 REPORT STATUS: Signed EXAM: CT ABDOMEN AND PELVIS with IV CONTRAST DATE: 07/30/2017 7:31 PM Time stamp on Exam: 2144 hours INDICATION: Abdominal pain, nausea, right low er quadrant pain COMPARISON: CT of the abdomen and pelvis June 14, 2017 TECHNIQUE: The abdomen and pelvis were scanned using a multidetector helical s canner. Coronal and sagittal reformations were obtained. Routine protocol perf ormed. IV Contrast: 100 cc Isovue-370 Oral Contrast: Gastrografin CTDIvol has been reviewed. It is below the limits set by the Radiation Protocol Commit ivanna (RPC). FINDINGS: LOWER THORAX: No consolidations LIVER: No keith s BILIARY: The gallbladder is unremarkable. No ductal dilation. SPLEEN: No masses PANCREAS: No masses ADRENALS: No nodules KIDNEYS: Symmetric p erfusion. No enhancing masses. No hydronephrosis. GI TRACT: Severe distenti on of the stomach and proximal duodenum with a transition point at the level o f the superior mesenteric artery. The remainder of the small and large bowel a re unremarkable. Neither a normal nor abnormal appendix is identified. No seco ndary signs of appendicitis. VESSELS: No interval change PERITONEUM/RETRO PERITONEUM: No free air or fluid LYMPH NODES: No lymphadenopathy REPRODUC TIVE ORGANS: Unremarkable BLADDER: Unremarkable SOFT TISSUES: Unremarkabl e BONES: No suspicious bone lesions. IMPRESSION: Once again there is se fabricio distention of the stomach with a transition point in the mid third portio n of the duodenum. No interval change in exam. Signed by: Dr. Michael Arana M.D. on 07/30/2017 10:23 PM Dictated By: MICHAEL MCCAULEY MD [facility] Signed By: MICHAEL MCCAULEY MD on 07/30/172222 Transcribed By: JOYCE on 07/30/172222 COPY TO: JOHN HAN MD ABDOMEN-[facility] ([place] [address] Patient Name: KIKE SERNA MR #: [id number] : 1980 Age/Sex: 37/M Req #: [id number] Adm Physicia n: ASHLEE ANTONIO MD Ordered by: IAN WEAVER MD Report #: [id number] Location: MED/SURG Room/Bed: [facility] Procedure: 013 0-0042 DX/ABDOMEN-1VIEW (KUB) Exam Date: 06/29/17 Ex am Time: 1450 REPORT STATUS: Signed PROCEDURE: X-RAY ABDOMEN - KUB COMPARISON: None. INDICATIONS: left lower abdominal pain today, menjivar rgery 1 week ago FINDINGS: A paucity of small bowel gas, however, no air-filled, dilated loops of bowel are noted. Air is noted in the ascending c olon, transverse, colon, and distal sigmoid/rectum. Minimal crescentic luce ncy below the medial left hemidiaphragm likely represents residual postsurgic al pneumoperitoneum. No acute bony abnormalities. Metallic eufemia are noted in the right lower quadrant. CONCLUSION: No air-filled, dilated loop s of bowel are noted. Kiet Guidry M.D. Dictated by: Kiet Guidry M.D. on 06/29/2017 at 15:35 Electronically approved by: Kiet Guidry M.D. on 06/29/2017 at 15:35 Dictated By: KIET GRIFFIN MD 1535 Transcrib ed By: JERMAINE on 06/29/17 1535 COPY TO: IAN WEAVER MD ABDOMEN-1VIEW (KUB) [place] [address] Patient Name: KIKE SERNA MR #: [id number] : 1980 Age/Sex: 37/M Req #: [id number] Adm Physician: ASHLEE ANTONIO MD Ordered by: BENJAMIN CAMARENA MD Report #: [id number] Location: MED/SURG Room/Bed: [facility] Procedure: [id number] DX/ABDOMEN-1VIEW (KUB) Exam Date: 06/27/17 Exam Time : 1155 REPORT STATUS: Signed Exam:Abdominal radiograph History:Pos toperative Comparison: None available Findings:Surgical clips overlyin g the right upper quadrant. Nonobstructive bowel gas pattern. Lung bases pedro r. No mass effect. Impression: Nonobstructive bowel gas pattern. Signed by: Dr. Isha Valdes M.D. on 06/27/2017 12:11 PM Dictated By: ISHA VALDES MD 1211 Transcribed By: JOYCE on 06/27/17 1211 COPY TO: BENJAMIN CAMARENA MD CHEST XRAY LINE PLACEMENT [place] [address] Patient Name: KIKE SERNA MR #: [id number] : 1980 Age/Sex: 37/M Req #: [id number] Adm Physician: ASHLEE ANTONIO MD Ordered by: IAN WEAVER MD Report #: [id number] Location: MED/SURG3 Room/Bed: [facility] Procedure: DX/CHEST XRAY LINE PLACEMENT Exam Date: 06/17/17 Exam Time: 1350 REPORT STATUS: Signed PROCEDURE: A single AP vie w of the chest. COMPARISON: [facility], DX, CHEST 2 VIEWS, , 23:49. INDICATIONS: PICC LINE PLACEMENT FINDINGS: Lines/tubes: Left upper extremity PICC has been placed with the distal tip projected over the cavoatrial junction. Lungs: The lungs are well inflat ed and clear. There is no evidence of pneumonia or pulmonary edema. Ple ura: Mild biapical pleural scarring. There is no pleural effusion or pneumot horax. Heart and mediastinum: The heart and the mediastinum are unremarka ble. Bones: No acute bony abnormality. IMPRESSION: 1. Left upper extremity PICC has been placed with the distal tip projected over the c avoatrial junction. Matt Su M.D. Dictated by: Matt Farooq M.D. on 06/17/2017 at 14:28 Electronically approved by: Matt Su M.D. on 06/17/2017 at 14:28 Dictated By: NGOZI SU MD, MD 27 Transcribed By: JERMAINE on 06/17/171427 COPY TO: PIPO WEAVER MD CT ABDOMEN/PELVIS W [place] [address] Patient Name: KIKE SERNA MR #: [id number] : 1980 Age/Sex: 37/M Req #: [id number] Adm Physician: Ordered by: RAYA ANDERSON MD Report #: [id number] Location: ER Room/Bed: Procedure: [id number] CT/CT ABDOMEN/PELVIS W Exam Date: 06/14/17 Exam Time: 0545 REPORT S TATUS: Signed EXAM: CT ABDOMEN AND PELVIS with IV CONTRAST DATE: 06/14/2017 3:49 AM Time stamp on Exam: 0552 hours INDICATION: Abdominal pain, vomiting COMPARISON: AP view of the chest April 22, 2017 TECHNIQUE: The abdomen a nd pelvis were scanned using a multidetector helical scanner. Coronal and sagi ttal reformations were obtained. Routine protocol performed. IV Contrast: 10 0 cc Isovue 370 Oral Contrast: Gastrografin CTDIvol has been reviewed. It is below the limits set by the Radiation Protocol Committee (RPC). FINDINGS : LOWER THORAX: No consolidations LIVER: No masses BILIARY: The gallbla dder is unremarkable. No ductal dilation. SPLEEN: No masses PANCREAS: No masses ADRENALS: No nodules KIDNEYS: Symmetric perfusion. No enhancing m asses. No hydronephrosis. GI TRACT: Severe distention of the stomach and pr oximal duodenum with the transition point at the level of the superior mesente michael artery. The remainder of the small and large bowel are unremarkable. VESSELS: The aorta mesenteric angle is 11 degrees and aorta mesenteric distance is 6 mm PERITONEUM/RETROPERITONEUM: No free air or fluid LYMPH NODES: No l ymphadenopathy REPRODUCTIVE ORGANS: Unremarkable BLADDER: Unremarkable SOFT TISSUES: Unremarkable BONES: No suspicious bone lesions. IMPRESSI ON: Once again there is severe distention of the stomach with the transition p oint in the mid third portion of the duodenum. 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 Signed by: Dr. Michael Mccauley M.D. on 06/14/2017 6:27 AM Dictated By: MICHAEL MCCAULEY MD Electronically S igned By: MICHAEL MCCAULEY MD on 06/14/17626 Transcribed By: JOYCE on 06/14/17626 COPY TO: RAYA ANDERSON MD SMALL BOWEL SERIES [place] [address] Patient Name: KIKE SERNA MR #: [id number] : 1980 Age/Sex: 37/M Req #: [id number] Adm Physician: ASHLEE ANTONIO MD Ordered by: COLUMBA REDDY MD Report #: [id number] Location: MED/SURG2 Room/Bed: [facility] Procedure: 1127-0 016 DX/SMALL BOWEL SERIES Exam Date: 04/26/17 Exam T shelton: 1100 REPORT STATUS: Signed PROCEDURE: SMALL BOWEL SERIES C omparison: CT abdomen and pelvis 04/23/2017. Indications: DUODENAL STR ICTURE Technique: Small bowel follow through exam was performed using ora l barium. Preliminary image was obtained before administration of contras t and serial overhead images were obtained after administration of oral bariu m. Fluoroscopy was performed and spot images were obtained. Findings: SMALL BOWEL FOLLOW THROUGH: Small bowel loops are normal in caliber a nd distribution. Spot compression views of the terminal ileum are normal. The transit time was normal. No appendix was visualized. IMPRESSION : No acute radiographic abnormality. Dictated by: Jl Leonard M.D. on 04/26/2017 at 11:44 Electronically approved by: Rocío Harley on 04/26/2017 at 11:44 Dictated By: JL LEONARD MD Electr onically Signed By: JL LEONARD MD on 04/26/17 1144 Transcribed By: JERMAINE on 1144 COPY TO: COLUMBA REDDY MD ABDOMEN ACUTE SERIES W/PA CXR [place] [address] Patient Name: KIKE SERNA MR #: [id number] : 1980 Age/Sex: 37/M Req #: [id number] Adm Physician: ASHLEE ANTONIO MD Ordered by: LORAINE WEAVER MD Report #: [id number] Location: MED/SURG2 Room/Bed: [facility] Procedure: 112 6-0005 DX/ABDOMEN ACUTE SERIES W/PA CXR Exam Date: 04/25/17 Exam Time: 616 REPORT STATUS: Signed Exam: Abdominal film u pright and supine Clinical History: Abdominal pain Comparison: 017 DISCUSSION: Enteric tube removed. No gaseous distention of the stomach. Colonic constipation. No free air. Lungs clear. IMPRESSION: Nonobst ructive bowel gas pattern. Signed by: Dr. Isha Valdes M.D. on 2016 7:21 AM Dictated By: ISHA VALDES MD 0 Transcribed By: JOYCE on 04/25/17720 COPY TO: LORAINE WEAVER MD ABDOMEN COMP INCL UPR or DECUB [place] [address] Patient Name: KIKE SERNA MR #: [id number] : 1980 Age/Sex: 37/M Req #: [id number] Adm Physician: ASHLEE ANTONIO MD Ordered by: COLUMBA REDDY MD Report #: [id number] Location: MED/SURG2 Room/Bed: [facility] Procedure: 1125-0 014 DX/ABDOMEN COMP INCL UPR or DECUB Exam Date: 04/24/17 Exam Time: 911 REPORT STATUS: Signed Exam: Abdominal film upr ight and supine Clinical History: Abdominal pain Comparison: None. DISCUSSION: Enteric tube with distal tip in the region of the duodenum. No g aseous distention of the stomach. Colonic constipation. No free air. IMPRES BECKY: Nonobstructive bowel gas pattern. Enteric tube with tip overlyin g the region of the duodenum. Signed by: Dr. Isha Alonso ch, M.D. on 04/24/2017 9:43 AM Dictated By: ISHA VALDES MD Electron ically Signed By: ISHA VALDES MD on 04/24/17942 Transcribed By: JOYCE on 04/24/17942 COPY TO: COLUMBA REDDY MD ABDOMEN COMP INCL UPR or DECUB [place] [address] Patient Name: KIKE SERNA MR #: [id number] : 1980 Age/Sex: 37/M Req #: [id number] Adm Physician: ASHLEE ANTONIO MD Ordered by: JOHN HAN MD Report #: [id number] Location: MED/SURG2 Room/Bed: [facility] Procedure: 1124-00 09 DX/ABDOMEN COMP INCL UPR or DECUB Exam Date: a Time: REPORT STATUS: Signed PROCEDURE: ABDOMEN COMP INCL UPR OR DE CUB INDICATION: Small bowel obstruction COMPARISON: CT abdomen and pelvi s earlier 04/23/2017. FINDINGS: Interval placement of an enteric tube. T he tip projects over the expected region of the gastric pylorus. No dil ated, air-filled loops of small bowel. Gas and fecal material are noted throu ghout the large bowel and rectum. No pneumoperitoneum. Intravenous contras t material from prior CT opacifies the urinary bladder. Regional skeletal str uctures are intact. CONCLUSION: Enteric tube tip projects ov er the expected region of the gastric pylorus. For further findings regarding suspected obstruction at the level of the third portion of the duodenum plea se refer to CT abdomen and pelvis earlier 05/23/2017 Nonobstructive bow el gas pattern. Dictated by: Loraine Portillo M.D. on 04/23/2017 at 10:06 Electronically approved by: Loraine Portillo M.D. on 04/23/2017 at 10:06 Dictated By: LORAINE PORTILLO MD 1006 Transcribed By: JERMAINE on 04/23/17 1006 COPY TO: JOHN LANGLEY MD CT ABDOMEN/PELVIS W [place] [address] Patient Name: KIKE SERNA MR #: [id number] : 1980 Age/Sex: 37/M Req #: [id number] Adm Physician: Ordered by: JOHN HAN MD Report #: [id number] Location: ER Room/Bed: Procedure: [id number] CT/CT ABDOMEN/PELVIS W Exam Date: 04/23/17 Exam Time: 0130 REPORT STATUS: Signed EXAM: CT ABDOMEN AND PELVIS with IV CONTRAST DATE: 04/22/2017 11:54 PM Time stamp on Exam: 0131 hours INDICATION: Upper abdominal pain, vomiting COMPARISON: None TECHNIQUE: The abdomen and pelvis were scanned using a m [employer] helical scanner. Coronal and sagittal reformations were obtained. Routine protocol performed. IV Contrast: 100 cc Isovue-370 Oral Contrast: Gastrografin CTDIvol has been reviewed. It is below the limits set by the Rad iation Protocol Committee (RPC). FINDINGS: LOWER THORAX: No consolidati ons LIVER: No masses BILIARY: The gallbladder is unremarkable. No ductal dilation. SPLEEN: No masses PANCREAS: No masses ADRENALS: No nodule s KIDNEYS: Symmetric perfusion. No enhancing masses. No hydronephrosis. G I TRACT: Severe gastric distention. Obstruction is at the level of the third p ortion of the duodenum. VESSELS: Unremarkable PERITONEUM/RETROPERITON EUM: No free air or fluid LYMPH NODES: No lymphadenopathy REPRODUCTIVE OR PHIL: Unremarkable BLADDER: Marked distention. SOFT TISSUES: Unremarkable BONES: No suspicious bone lesions. IMPRESSION: Severe distention of th e stomach with the obstruction at the level of the third portion of the duoden um. With provided history of the patient vomiting some blood, this is concerni ng for ischemia, even though findings are not visualized by CT. Marked di stention of the bladder. Signed by: Dr. Michael Mccauley M.D. on 04/23/20 2:01 AM Dictated By: MICHAEL MCCAULEY MD 0 Transcribed By: JOYCE on 04/23/17200 RESIDENTIAL THERAPIST Y TO: JOHN HAN MD CHEST 2 VIEWS [place] [address] Patient Name: KIKE SERNA MR #: [id number] : 1980 Age/Sex: 37/M Req #: [id number] Adm Physician: Ordered by: JOHN HAN MD Report #: [id number] Location: ER Room/Bed: Procedure: [id number] DX/CHEST 2 VIEWS Exam Date: 04/23/17 Exam Time: 0120 REPORT STATUS: Signed EXAM: CHEST 2 VIEWS, PA and lateral DATE: 04/22/2017 11:00 PM Time stamp on exam: 2349 hours INDICATION: Abdominal pain COMPARISON: None FINDING S: LINES/TUBES: None LUNGS: No consolidations or edema. PLEURA: No effusions or pneumothorax. HEART AND MEDIASTINUM: Normal size and contour. BONES AND SOFT TISSUES: No acute findings. IMPRESSION: No acute tho racic abnormality. Signed by: Dr. Michael Mccauley M.D. on 04/23/20 2:02 AM Dictated By: MICHAEL MCCAULEY MD 1 Transcribed By: JOYCE on 04/23/17201 RESIDENTIAL THERAPIST Y TO: JOHN HAN MD
[2020-02-26 15:31] LABS: ALANINE AMINOTRANSFERASE 11 IU/L (0-55); ALBUMIN 4.5 g/dL (3.5-5.0); ALBUMIN/GLOBULIN RATIO 1.5 (0.8-2.0); ALKALINE PHOSPHATASE 44 IU/L (40-150); ANION GAP 14.2 mmol/L (8-16); BLOOD UREA NITROGEN 7 mg/dL (7-26); BUN/CREATININE RATIO 8 (6-25); CALCIUM 9.2 mg/dL (8.4-10.2); CARBON DIOXIDE 28 mmol/L (22-29); CHLORIDE 102 mmol/L (98-107); CREATININE, SERUM 0.83 mg/dL (0.72-1.25); EST GLOMERULAR FILTRATION RATE > 60 ML/MIN (60-); GLUCOSE 111 mg/dL (74-118); POTASSIUM 4.2 mmol/L (3.5-5.1); SODIUM 140 mmol/L (136-145)
[2020-02-26 15:32] LABS: BACTERIA,URINE RARE /HPF; CLARITY,URINE CLEAR (CLEAR); COLOR,URINE YELLOW (YELLOW); EPITHELIAL CELLS,URINE RARE /LPF; RBC,URINE 0-5 /HPF (0-5)
[2020-02-26 15:37] LABS: BILIRUBIN,URINE NEGATIVE (NEGATIVE); KETONES,URINE NEGATIVE (NEGATIVE); LEUKOCYTE ESTERASE ,URINE NEGATIVE (NEGATIVE); NITRITE,URINE NEGATIVE (NEGATIVE); PROTEIN,URINE DIPSTICK NEGATIVE (NEGATIVE); URINE UROBILINOGEN 0.2 mg/dL (0.2 - 1)
[2020-02-26] MEDS ORDERED: SODIUM CHLORIDE 0.9% 50ML 50 ML ONE (15:45)
[2020-02-26] MEDS ORDERED: IOPAMIDOL 370 MG/ML 200 ML INFUS..BTL INJ ONE (15:46)
--- NOTE | 2020-02-26 16:52 | Diagnostic Imaging Report ---
EXAM: CT Abdomen and Pelvis WITH intravenous contrast INDICATION: Abdominal pain COMPARISON: CT abdomen and pelvis of 07/30/2017 TECHNIQUE: Abdomen and pelvis were scanned utilizing a multidetector helical scanner from the lung base to the pubic symphysis after administration of IV contrast. Coronal and sagittal reformations were obtained. Routine protocol was performed. Scan was performed during portal venous phase. IV CONTRAST: 100mL of Isovue 370 ORAL CONTRAST: Water RADIATION DOSE: Total DLP: 408 mGy*cm Dose modulation, iterative reconstruction, and/or weight based adjustment of the mA/kV was utilized to reduce the radiation dose to as low as reasonably achievable. FINDINGS: LOWER THORAX: Normal. HEPATOBILIARY: No focal liver lesion. No biliary ductal dilation. Unremarkable gallbladder. SPLEEN: No splenomegaly. PANCREAS: No focal masses or ductal dilatation. ADRENALS: No adrenal nodules. KIDNEYS/URETERS: No hydronephrosis, stones, or solid mass lesions. PELVIC ORGANS/BLADDER: Unremarkable. PERITONEUM / RETROPERITONEUM: No free air or fluid. LYMPH NODES: No lymphadenopathy. VESSELS: Unremarkable. GI TRACT: No abnormal bowel wall thickening. Moderate distention of the stomach and proximal duodenum with fluid and ingested material. This is to a lesser extent than on previous CTs from 2018. Diffusely increased stool volume throughout the colon compatible with constipation. BONES AND SOFT TISSUES: No acute osseous injury. No suspicious lytic or blastic lesions. IMPRESSION: Moderate distention of the stomach and proximal duodenum with fluid and ingested material, to a lesser extent than on previous CTs from 2018. Increased volume throughout the colon compatible with constipation. Signed by: Simon Lopez MD on 02/26/2020 4:49 PM
[2020-02-26 17:43] LABS: WBC,URINE (MAN) 0-5 /HPF (0-5)
== END 2020-02-26 18:55 | disposition home or self-care (01) ==
LOC: ER 14:45
DX: K59.00 Constipation, unspecified (principal); R10.9 Unspecified abdominal pain; M35.00 Sjogren syndrome, unspecified; K21.9 Gastro-esophageal reflux disease without esophagitis; M54.9 Dorsalgia, unspecified; G89.29 Other chronic pain
CPT/HCPCS: 36415; 74177; 80053; 81001; 83690; 85025; 99284; J2405; J7030; Q9967

== ENCOUNTER 2020-06-07 13:06 | Emergency (ER) | payer BC ==
[~2020-06-07] VITALS: Ht 193 cm; Wt 81.6 kg
[2020-06-07 13:34] LABS: BASOPHILS % 0.3 % (0.0-1.0); EOSINOPHILS % 0.4 % (0.0-6.0); HEMATOCRIT 43.7 % (38.2-49.6); HEMOGLOBIN 14.5 g/dL (14.0-18.0); LYMPHOCYTES # (AUTO) 1.4 (1.0-3.2); LYMPHOCYTES % 14.6 % (18.0-39.1); MEAN CORPUSCULAR HEMOGLOBIN 31.5 pg (28-32); MEAN CORPUSCULAR HGB CONC 33.2 g/dL (31-35); MONOCYTES # (AUTO) 0.6 (0.2-0.8); MONOCYTES % 5.7 % (4.4-11.3); NEUTROPHILS # (AUTO) 7.8 (2.1-6.9); NEUTROPHILS % 78.7 % (38.7-80.0); PLATELET COUNT 299 x10e3/uL (140-360)
[2020-06-07 13:50] LABS: ALANINE AMINOTRANSFERASE 165 IU/L (0-55); ALBUMIN 4.2 g/dL (3.5-5.0); ALBUMIN/GLOBULIN RATIO 1.2 (0.8-2.0); ALKALINE PHOSPHATASE 64 IU/L (40-150); ANION GAP 12.8 mmol/L (8-16); BLOOD UREA NITROGEN 9 mg/dL (7-26); BUN/CREATININE RATIO 11 (6-25); CARBON DIOXIDE 28 mmol/L (22-29); CHLORIDE 99 mmol/L (98-107); CREATINE KINASE 50 IU/L (30-200); CREATININE, SERUM 0.84 mg/dL (0.72-1.25); EST GLOMERULAR FILTRATION RATE > 60 ML/MIN (60-); GLUCOSE 122 mg/dL (74-118); POTASSIUM 3.8 mmol/L (3.5-5.1); SODIUM 136 mmol/L (136-145)
[2020-06-07] MEDS ORDERED: MORPHINE SULFATE INJ 2 MG/ML SYR IV STA (13:57)
[2020-06-07] MEDS ORDERED: SODIUM CHLORIDE 0.9% 1000ML 1,000 ML IV STA (13:57)
[2020-06-07] MEDS ORDERED: ONDANSETRON HCL INJ 2MG/ML 2ML 2 MG/ML VIAL IV STA (13:57)
[2020-06-07] MEDS ORDERED: DIATRIZOATE MEGL/DIATRIZOA SOD 30 ML BTL PO ONE (16:48)
[2020-06-07] MEDS ORDERED: SODIUM CHLORIDE 0.9% 50ML 50 ML ONE (17:07)
[2020-06-07] MEDS ORDERED: IOPAMIDOL 370 MG/ML 200 ML INFUS..BTL INJ ONE (17:08)
[2020-06-07 19:01] VITALS: BP 132/80
== END 2020-06-07 19:01 | disposition home or self-care (01) ==
LOC: ER 13:10
DX: R10.9 Unspecified abdominal pain (principal); R11.10 Vomiting, unspecified; M54.9 Dorsalgia, unspecified; G89.29 Other chronic pain; Z98.0 Intestinal bypass and anastomosis status
CPT/HCPCS: 36415; 74018; 74177; 80053; 82550; 82553; 84484; 85025; 99284; J2270; J2405; J7030; Q9967

== ENCOUNTER 2020-07-18 14:17 | Emergency (ER) | payer BC ==
[~2020-07-18] VITALS: Ht 193 cm; Wt 81.6 kg
[2020-07-18] MEDS ORDERED: ONDANSETRON HCL INJ 2MG/ML 2ML 2 MG/ML VIAL IV STA (15:12)
[2020-07-18] MEDS ORDERED: MORPHINE SULFATE 5 MG/ML VIAL IV ONE (15:15)
[2020-07-18] MEDS ORDERED: MORPHINE SULFATE INJ 4 MG/ML INJ 1ML ONE (15:30)
[2020-07-18] MEDS ORDERED: SODIUM CHLORIDE 0.9% 1000ML 1,000 ML ONE (15:30)
[2020-07-18] MEDS ORDERED: SODIUM CHLORIDE 0.9% 1000ML 1,000 ML IV SCH (16:00)
[2020-07-18] MEDS ORDERED: SODIUM CHLORIDE 0.9% 1000ML 1,000 ML IV ONE (16:30)
== END 2020-07-18 19:25 | disposition home or self-care (01) ==
LOC: FSED 15:15
DX: R10.11 Right upper quadrant pain (principal); M35.00 Sjogren syndrome, unspecified; K21.9 Gastro-esophageal reflux disease without esophagitis; M54.9 Dorsalgia, unspecified; G89.29 Other chronic pain
CPT/HCPCS: 74176; 80048; 80076; 81003; 85025; 99284; J2270; J2405; J7030

== ENCOUNTER 2020-10-22 20:12 | Emergency (ER) | payer BC ==
[~2020-10-22] VITALS: Ht 193 cm; Wt 78.0 kg
[2020-10-22] MEDS ORDERED: SODIUM CHLORIDE 0.9% 50ML 50 ML ONE (20:51)
[2020-10-22] MEDS ORDERED: IOPAMIDOL 370 MG/ML 200 ML INFUS..BTL INJ ONE (20:52)
[2020-10-22 22:50] VITALS: BP 112/82
== END 2020-10-22 22:50 | disposition home or self-care (01) ==
LOC: FSED 20:30
DX: R10.11 Right upper quadrant pain (principal); K21.9 Gastro-esophageal reflux disease without esophagitis; M35.00 Sjogren syndrome, unspecified; M54.9 Dorsalgia, unspecified; G89.29 Other chronic pain
CPT/HCPCS: 74177; 80048; 81003; 85025; 99283; Q9967